=== PATIENT | female | born 1955 | race Caucasian/White ===

== ENCOUNTER → 2018-05-12 | Outpatient (CLI) | payer OTHER ==
[~2018-05-12] MED LIST: AMILORIDE HCL-1 EACH; ASPIRIN81 MG; CIPRO500 MG PO; CLINDAMYCIN HC300 MG PO; ENALAPRIL MALEA20 MG PO; GLIPIZIDE5 MG PO; Gabapentin PO; LANTUS100 UNITS/; METFORMIN HCL500 M2 PO; PROTONIX40 MG/ML PO; SIMVASTATIN20 MG PO; ULTRAM 50MG50 MG PO
== END ==
LOC: MAMMO 13:06
PROVIDERS: ATTEND Internal Medicine
DX: Z12.31 Encounter for screening mammogram for malignant neoplasm of breast (principal)
CPT/HCPCS: 77067

== ENCOUNTER 2018-10-18 13:58 | Inpatient (IN) | payer OTHER ==
[~2018-10-18] VITALS: Ht 162.6 cm; Wt 83.5 kg
[~2018-10-18 13:58] MED LIST changes: -LANTUS100 UNITS/; +LANTUS100 UNITS/ SC
--- OUTSIDE RECORDS SUMMARY | 2018-10-18 14:04 | XMS REPORT ---
Author Author [facility] Address Unknown Phone Unavailable Care Team Providers Care [place] Pilot Name Role Phone LAZ OLMSTEAD Unavailable Unavailable Problems This patient has no known problems. Allergies, Adverse Reactions, Alerts This patient has no known allergies or adverse reactions. Medications This patient has no known medications. Results Test Description Test Time Test Comments Text Results Atomic Results Result Comments MAMMOGRAPHY DIGITAL SCR BILAT 2018-05-12 14:13:00 [place] [address] Patient Name: KORINA ACEVES MR #: [id number] : 1955 Age/Sex: 62/F Req #: [id number] [facility] Physician: Ordered by: LAZ OLMSTEAD MD Report #: [id number] Location: MAMMO Room/Bed: Procedure: [id number] MG/MAMMOGRAPHY DIGITAL SCR BILAT Exam Date: 05/12/18 Exam Time: 1400 REPORT STATUS: Signed #[id number] - [id number] #BILATERAL DIGITAL SCREENING MAMMOGRAM WITH CAD: 05/12/2018 CLINICAL: Routine screening. Comparison is made to exam dated: 04/08/2012 mammogram - [facility]. Current study contains 4 films. The tissue of both breasts is predominantly fatty. Current study was also evaluated with a Computer Aided Detection (CAD) system. No significant masses, calcifications, or other findings are seen in either breast. There has been no significant interval change. IMPRESSION: BENIGN There is no mammographic evidence of malignancy. A 1 year screening mammogram is recommended. The patient will be notified by letter of the results. Emilia amos/roshni:05/16/2018 10:21:38 Director Of Perioperative Services: Kaitlin AQUINO)( [place]), [facility] letter sent: Compared to Prior B9 Mammogram BI-RADS: 2 Benign Dictated By: EMILIA KLINE DO 1021 Transcribed By: ROSHNI on 05/16/18 1021 COPY TO: LAZ OLMSTEAD MD
[2018-10-18] MEDS ORDERED: PIPER-TAZ 3.375 GM 50 ML IV NR (14:30)
--- NOTE | 2018-10-18 15:14 | Diagnostic Imaging Report ---
Exam: Left foot 3 views History: Cellulitis, foot ulcer Comparison: MRI left foot 06/12/2015. Findings: No acute, displaced fracture or dislocation. Hallux valgus deformity and multiple hammertoe deformities, which limits evaluation of the distal phalanges. Postsurgical changes of the second phalanx described on comparison MRI are poorly visualized by plain radiography. Joint spaces are relatively well-maintained. Soft tissue ulceration is evident on the lateral radiograph at the level of the midfoot. Pes planus deformity. Impression: Plantar soft tissue ulceration without underlying plain film evidence of osteomyelitis. Chronic hallux valgus deformity and multiple hammertoe deformities as above. Signed by: Dr. Abad Monk M.D. on 10/18/2018 3:11 PM
[2018-10-18 17:05] LABS: BASOPHILS # (AUTO) 0.1 (0.0-0.1); BASOPHILS % 0.4 % (0.0-1.0); EOSINOPHILS # (AUTO) 0.2 (0.0-0.4); EOSINOPHILS % 1.6 % (0.0-6.0); HEMOGLOBIN 10.7 g/dL (12.0-16.0); LYMPHOCYTES # (AUTO) 4.1 (1.0-3.2); LYMPHOCYTES % 35.5 % (18.0-39.1); MEAN CORPUSCULAR HEMOGLOBIN 27.9 pg (28-32); MEAN CORPUSCULAR HGB CONC 31.5 g/dL (31-35); MEAN CORPUSCULAR VOLUME 88.8 fL (81-99); MONOCYTES # (AUTO) 0.8 (0.2-0.8); MONOCYTES % 7.2 % (4.4-11.3); NEUTROPHILS # (AUTO) 6.3 (2.1-6.9); NEUTROPHILS % 54.9 % (38.7-80.0); PLATELET COUNT 449 x10e3/uL (140-360); RED BLOOD COUNT 3.83 x10e6/uL (3.6-5.1); RED CELL DISTRIBUTION WIDTH 14.5 % (11.7-14.4)
[2018-10-18 17:20] LABS: ALBUMIN 3.3 g/dL (3.5-5.0); ALBUMIN/GLOBULIN RATIO 0.8 (0.8-2.0); ANION GAP 17.2 mmol/L (8-16); CALCIUM 9.8 mg/dL (8.4-10.2); CREATININE, SERUM 1.38 mg/dL (0.57-1.11); MAGNESIUM 2.2 MG/DL (1.3-2.1); POTASSIUM 4.2 mmol/L (3.5-5.1)
[2018-10-18 17:48] LABS: CREATINE KINASE MB 3.2 ng/mL (0-5.0)
[2018-10-18 17:54] LABS: INR 1.05; PROTHROMBIN TIME 14.6 seconds (11.9-14.5)
--- NOTE | 2018-10-18 18:06 | NUR ---
patient placed on pacer pads.no signs of acute distress noted at this time.
--- NOTE | 2018-10-18 18:44 | Diagnostic Imaging Report ---
EXAMINATION: CHEST SINGLE (PORTABLE) INDICATION: ^bradycardia ^[id number] ^1747 COMPARISON: None FINDINGS: AP view TUBES and LINES: None. LUNGS: Lungs are well inflated. Bilateral interstitial edema. No lobar consolidations. PLEURA: No pleural effusion or pneumothorax. HEART AND MEDIASTINUM: Mild enlargement of the cardiac silhouette. Atherosclerotic calcifications of the aortic arch. BONES AND SOFT TISSUES: No acute osseous lesion. Soft tissues are unremarkable. UPPER ABDOMEN: No free air under the diaphragm. IMPRESSION: Bilateral interstitial edema. Signed by: Dr. Aiyana Doan M.D. on 10/18/2018 6:41 PM
--- NOTE | 2018-10-18 18:57 | NUR ---
SPOKE WITH DR FIELDS VIA TELEPHONE, NOTIFIED PATIENT IN 3RD DEGREE HEART BLOCK. INSTRUCTED TO ADMIT PATIENT TO ICU AND PATIENT TO HAVE PACEMAKER PLACE IN THE MORNING. VANCOMYCIN 1G IV Q12 ORDERED AT THIS TIME.
--- NOTE | 2018-10-18 18:58 | NUR ---
VERBAL REPORT GIVEN TO MARSHA CHO.
[2018-10-18] MEDS ORDERED: DEXTROSE 50% SYRINGE 50 ML IV PRN (19:30)
--- NOTE | 2018-10-18 20:00 | NUR ---
pt aware of planned pacemaker placement in am. pt and state that unsure if want pacemaker procedure performed. dr mejia informed.
[2018-10-18] MEDS: VANCOMYCIN 1GM/NS 250 ML 250 ML IV SCH (20:18)
[2018-10-18] MEDS: HYDROCODONE/APAP 7.5MG-325MG 1 EA TAB PO PRN ×2 (21:25→21:53)
--- NOTE | 2018-10-18 21:30 | NUR ---
PT UANBLE TO URINATE X 2 ATTEMPTS. INFORMED. AJ CATHETTER ORDERED. PT STATES THAT ALLERGIC TO TOPICAL IODINE. SHIVA CARE PERFORMED C HYGIENE WIPES. 16 FR AJ CATHETER INSERTED USING STERILE TECHNIQUE. 650 CC CLEAR YELLOW URINE RETURN NOTED. INFORMED.
[2018-10-18] MEDS: INSULIN REGULAR, HUMAN 100 UNIT/1 ML 3ML VIAL SQ SCH (22:15)
[2018-10-18 22:49] LABS: CLARITY,URINE CLEAR (CLEAR); COLOR,URINE YELLOW (YELLOW)
[2018-10-18 22:50] LABS: BACTERIA,URINE RARE /HPF; BILIRUBIN,URINE NEGATIVE (NEGATIVE); EPITHELIAL CELLS,URINE RARE /LPF; KETONES,URINE NEGATIVE (NEGATIVE); LEUKOCYTE ESTERASE ,URINE NEGATIVE (NEGATIVE); NITRITE,URINE NEGATIVE (NEGATIVE); PROTEIN,URINE DIPSTICK NEGATIVE (NEGATIVE); RBC,URINE 0-5 /HPF (0-5); URINE UROBILINOGEN 0.2 mg/dL (0.2 - 1)
[2018-10-19] VITALS (16 sets, daily range): BP systolic 85–136; BP diastolic 37–89
--- NOTE | 2018-10-19 03:00 | NUR ---
pt transported via stretcher to 198 c security monitor. pacer pads in place, pacer on standby as per orders.
[2018-10-19] MEDS: VANCOMYCIN 1GM/NS 250 ML 250 ML IV SCH ×2 (06:27→19:44)
[2018-10-19 07:24] LABS: BASOPHILS % 0.4 % (0.0-1.0); EOSINOPHILS # (AUTO) 0.2 (0.0-0.4); EOSINOPHILS % 1.8 % (0.0-6.0); HEMATOCRIT 32.7 % (34.2-44.1); HEMOGLOBIN 10.1 g/dL (12.0-16.0); LYMPHOCYTES # (AUTO) 3.2 (1.0-3.2); LYMPHOCYTES % 29.3 % (18.0-39.1); MEAN CORPUSCULAR HEMOGLOBIN 28.2 pg (28-32); MEAN CORPUSCULAR HGB CONC 30.9 g/dL (31-35); MEAN CORPUSCULAR VOLUME 91.3 fL (81-99); MONOCYTES # (AUTO) 1.2 (0.2-0.8); MONOCYTES % 10.8 % (4.4-11.3); NEUTROPHILS # (AUTO) 6.3 (2.1-6.9); NEUTROPHILS % 57.2 % (38.7-80.0); PLATELET COUNT 392 x10e3/uL (140-360); RED BLOOD COUNT 3.58 x10e6/uL (3.6-5.1); RED CELL DISTRIBUTION WIDTH 14.4 % (11.7-14.4)
[2018-10-19] MEDS: INSULIN REGULAR, HUMAN 100 UNIT/1 ML 3ML VIAL SQ SCH ×4 (07:30→21:04)
[2018-10-19 07:37] LABS: INR 1.05; PROTHROMBIN TIME 14.7 seconds (11.9-14.5)
[2018-10-19 07:47] LABS: ALBUMIN/GLOBULIN RATIO 0.8 (0.8-2.0); ANION GAP 15.7 mmol/L (8-16); CALCIUM 8.7 mg/dL (8.4-10.2); CREATININE, SERUM 1.29 mg/dL (0.57-1.11); POTASSIUM 4.7 mmol/L (3.5-5.1)
[2018-10-19 07:54] LABS: CREATINE KINASE MB 2.3 ng/mL (0-5.0)
[2018-10-19] MEDS ORDERED: VANCOMYCIN 1GM/NS 250 ML 250 ML IV SCH (09:00)
--- NOTE | 2018-10-19 09:28 | Consultation ---
DATE OF CONSULTATION: October 18, 2018 CARDIOLOGY CONSULTATION REASON FOR CONSULTATION: Heart block. HPI: This is a 62-year-old female that presented with lower extremity pain. According to the patient and , this has been going on for over 2 weeks. She saw her PCP, Dr. Douglas. He ordered some bilateral lower extremity arterial Doppler. She was sent to the emergency room for evaluation for infection. In the ER, she was found to have a complete heart block. Cardiology was consulted. She is very asymptomatic. The heart rate is in the 40s. She had a pad applied to her chest, and she was transferred to [facility]. EP has been consultation. She denied any chest pain, any palpitation, any diaphoresis, or headache. PAST MEDICAL HISTORY: Hypertension, diabetes, hyperlipidemia, nephropathy, mildly deaf, possible PAD, diabetic ulcer on the left foot. PAST SURGICAL HISTORY: Hernia repair, hysterectomy, left toe amputation, right wrist surgery. FAMILY HISTORY: Positive for CAD. SOCIAL HISTORY: She lives at home with her . MEDICATIONS: See med list. ALLERGIES: SHE IS ALLERGIC TO IODINE. REVIEW OF SYSTEMS: Negative except those mentioned above. She is positive for cellulitis on the left foot and complete heart block. PHYSICAL EXAMINATION VITALS: Temperature 97, heart rate 89, blood pressure 136/86, respirations 20, oxygen saturation 99% on 2 L nasal cannula. GENERAL: She is awake, alert and oriented times 3. HEENT: Mucous membrane moist. NECK: Supple. LUNGS: Bilateral with decreased breath sounds. CARDIOVASCULAR: Irregular with AV dissociation. ABDOMEN: Soft. NEUROLOGICAL: Intact. EXTREMITIES: With redness on the left. LABS: Sodium 136, potassium 4.2, chloride 99, CO2 24, BUN 25, creatinine 1.38, glucose 64. White blood cells 11, hemoglobin 10.1, hematocrit 32.7, and platelets 392,000. PT 14.6 and INR 1.05. IMPRESSION 1. Complete heart block. 2. Cellulitis and diabetic ulcer on the left foot. 3. Diabetes. 4. Hypertension. 5. Renal insufficiency. 6. Anemia. 7. Possible peripheral arterial disease. ASSESSMENT AND PLAN 1. EP, Dr. Dowd, has been consulted for possible permanent pacemaker today. 2. Will get an echocardiogram to assess the LV and the valve function. 3. Will put her n.p.o. and get a consent for pacemaker placement. Will get bilateral lower extremity venous Doppler to rule out any occlusion or DVT. 4. She is already on vancomycin antibiotics. Procedure and plan explained to the patient and the , and they agreed. Further cardiac workup pending clinical course. Thank you for this consultation. DICTATED BY ABENA FONSECA NP Job#: [id number] [place] MTDD
--- NOTE | 2018-10-19 10:31 | History and Physical ---
PRIMARY CARE PROVIDER: Dr. Adams Douglas. CONSULTANTS: Dr. Ravin Mejia, Dr. Worthington and Dr. Montrell Mason. CHIEF COMPLAINT: Left foot diabetic ulcer and sick sinus symptoms and 3rd-degree AV block. HISTORY OF PRESENT ILLNESS: Patient is a 62-year-old female with diabetes and chronic medical problems including left foot infected diabetic foot ulcer, previously with the ulcer. Came into the hospital with dizziness. The patient also has left foot cellulitis, needed to be evaluated. The patient did not see her primary care physician. In the emergency room the patient was found to have an AV dissociation with 3rd-degree AV block. Her heart rate in the 30s. The patient will need permanent pacemaker. PAST MEDICAL HISTORY: Noncompliance. Diabetes type 2 on insulin therapy. Dyslipidemia. Diabetic neuropathy. Hearing loss. PAD. Left foot diabetic foot ulcer. 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 Hypertension. PAST SURGICAL HISTORY: Left 2nd toe partial amputation. Right wrist surgery for CTS. Hernia repair. Hysterectomy. SOCIAL HISTORY: Patient does not smoke or use alcohol. No recreational drug use. She lives with her . ALLERGIES: TO IODINE AND LATEX. HOME MEDICATIONS: List is reviewed. REVIEW OF SYSTEMS: Dizziness. Weakness. Left foot infection. PHYSICAL EXAMINATION: VITAL SIGNS: Temperature is 98. Blood pressure is 120/37. Pulse rate is 30 to 40. GENERAL: The patient is not in acute distress. She is awake. HEENT: Normocephalic, atraumatic, anicteric. NECK: Supple grossly. PULMONARY: Diminished breath sounds without any wheezing or rales. CARDIOVASCULAR: S1 and S2. Bradycardia. ABDOMEN: Soft. Positive bowel sounds. Grossly nontender, nondistended. EXTREMITIES: No cyanosis or edema. Left foot with multiple ulcers. There is some redness. 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 NEUROLOGIC: Diabetic neuropathy. LABORATORY: Sodium is 134, potassium 4.7, chloride 102, bicarb 21, BUN 24, creatinine 1.29. Glucose 120. WBC is 11, hemoglobin 10.1, hematocrit 32.7 and platelet is 392. IMPRESSION: 1. Left foot diabetic foot ulcer. There is some cellulitis of the left foot. The ulcer is not draining. There is open wound, however. 2. Third-degree atrioventricular block, atrioventricular dissociation. PLAN: Permanent pacemaker. Antibiotics. Consultation with Dr. Montrell Mason. Dr. Melvin Worthington is on the case. Dr. Ravin Mejia on the case. Job#: [id number] EV
--- NOTE | 2018-10-19 13:00 | NUR ---
Dr.J. Mason rounding to see patient made him aware of wound care consult received orders not to consult wound care. Also to dress bilateral foot wounds with Santyl with wet diluted Betadine wet to dry.
--- NOTE | 2018-10-19 13:51 | Consultation ---
DATE OF CONSULTATION: October 19, 2018 REASON FOR CONSULTATION: Nonhealing ulceration to the left lower extremity with also a grade 1 ulcer to the right foot. HISTORY OF PRESENT ILLNESS: This is a pleasant 62-year-old female who is very hard of hearing with multiple chronic medical problems, who has a history of insulin-dependent diabetes, hypertension and presented through the emergency room. Was found to have an third-degree AV block with a heart rate of 30. Patient is denying any history of fever, chills, nausea, or vomiting. PAST MEDICAL HISTORY: As described above. PAST SURGICAL HISTORY: Remarkable for partial amputation, 2nd toe, left foot, cholecystectomy, hysterectomy with hernia surgery. CURRENT MEDICATIONS: Note listed in the chart including IV vancomycin. SOCIAL HISTORY: Denies any smoking, drinking or recreational drug use. Lives with and has 2 daughters. FAMILY HISTORY: Remarkable for diabetes. REVIEW OF SYSTEMS CARDIAC: Is denying any palpitations at this time. RESPIRATORY: Denies any shortness of breath. GASTROINTESTINAL: Denies any diarrhea or constipation. GENITOURINARY: Denies any hematuria or problems voiding. PODIATRIC PHYSICAL EXAMINATION EXTREMITIES: Reveals pedal pulses to be diminished to both the DP and PT. NEUROLOGICAL Seems to be decreased when utilizing [place] 5.07 monofilament wire. MUSCULOSKELETAL Reveals the muscle mass to be symmetrical and wasted. Muscle strength to be 3-4/5 to all muscle groups. Has a grade 3 ulcer on medial aspect, left foot measuring 2 to 2.5 cm in diameter, and a grade 1 ulcer on plantar aspect, 1st metatarsophalangeal joint. Some bruising noted measuring 1.5 to 2 cm in diameter. ASSESSMENT 1. Diabetic neuropathy. 2. Grade 3 ulcer with possible osteomyelitis with grade 1 ulcer, right. PLAN: Will start Santyl followed by diluted wet-to-dry Betadine to the left heel ulcer. Will start Bactroban ointment to the right heel ulcer. Continue IV antibiotics. Continue offloading. X-rays AP and bilateral will be ordered. Will continue to follow. Ulcers may need to be debrided possibly tomorrow. Job#: [id number] [place]
[2018-10-19] MEDS ORDERED: COLLAGENASE 5 GM TUBE TOP SCH (17:00)
--- NOTE | 2018-10-19 17:13 | NUR ---
High [employer] Music Teacher to bedside to discuss plan of care with patient/family. CM/SW role and care transitions discussed. Anticipated discharge plan discussed along with duration of care. CM/SW discussed patients right to make decisions in care. CM/SW work hours given. Patient lives: PATIENT LIVES WITH IN [facility] Admit/Transfer: ED POA/Emergency contact: VERO ACEVES Current/Previous Home Health: NONE PCP/Follow-up Care: DR. LAZ OLMSTEAD Current/Previous DME: NONE Other Services: NONE Employment Status: EMPLOYED Areas of Concerns: WOUND CARE Referral Needs: POSSIBLE HOME HEALTH Education Needs: WOUND CARE IMM/BEVERLY given and signed (if applicable): N/A Goal for discharge: PATIENT WANTS TO RETURN HOME WITH NO NEEDS INDEPENDENTLY CM left business card at the bedside with contact information. Name and number was also written on the patients whiteboard. Patient verbalized understanding of discussion. CM will follow-up with ongoing discharge and transition of care needs.
[2018-10-19] MEDS: INSULIN DETEMIR 100 UNIT/ML PEN SQ SCH (19:37)
--- NOTE | 2018-10-19 20:12 | NUR ---
called and left a message to dr Prasad, patient complained of pain. expecting some order. awaiting the MD to call back.
--- NOTE | 2018-10-19 20:39 | NUR ---
paged dr Mason, patient doesnt tolerate the dressings to the feet. expecting some orders, awaiting the MD call back.
--- NOTE | 2018-10-19 20:54 | NUR ---
dr Kareen Abraham called back ( covering dr Mason). gave Tylenol PRN order. orders carried out.
[2018-10-19] MEDS: SIMVASTATIN 20 MG TAB PO SCH (21:04)
[2018-10-19] MEDS: ACETAMINOPHEN 325 MG TAB PO PRN (21:04)
--- NOTE | 2018-10-19 21:23 | NUR ---
dr Prasad called back, he clarified the [place] order to q 6 PRN for pain. order carried out.
--- NOTE | 2018-10-19 22:00 | Diagnostic Imaging Report ---
FOOT RIGHT COMPLETE HISTORY: Plantar wound. COMPARISON: None available. FINDINGS: Bones: No acute displaced fracture. No erosions. Hallux valgus deformity with approximately 37 degrees of angulation. Hammertoe deformities. Partially visualized distal fibular plate and screw construct. Joints: Scattered mild to moderate degenerative changes. Soft tissues: Soft tissue swelling of the medial plantar forefoot. IMPRESSION: No radiographic evidence of osteomyelitis. Recommend repeat radiographs in 6-8 weeks in the setting of continued poor wound healing. Signed by: DR. Carson Merino MD on 10/19/2018 9:57 PM
--- NOTE | 2018-10-19 22:03 | NUR ---
called and spoke with dr Mejia, clarified if patient can have Bumpass PRN while her heart rate is low 40s. per MD its ok to give one Bumpass. will continue monitor.
[2018-10-19] MEDS: HYDROCODONE/APAP 7.5MG-325MG 1 EA TAB PO PRN (22:09)
[2018-10-20 03:46] VITALS: BP 134/53
--- NOTE | 2018-10-20 05:17 | NUR ---
patient is awaken, heart rate is still on low 40s, but no s/s of distress. sponge bath given ( with hibiclenz), patient tolerated well, linen change, dressing to both feet changed. defibrillator continuing attached.will continue to monitor.
[2018-10-20 05:30] LABS: BASOPHILS # (AUTO) 0.1 (0.0-0.1); BASOPHILS % 0.6 % (0.0-1.0); EOSINOPHILS # (AUTO) 0.4 (0.0-0.4); EOSINOPHILS % 4.5 % (0.0-6.0); LYMPHOCYTES # (AUTO) 3.3 (1.0-3.2); LYMPHOCYTES % 37.1 % (18.0-39.1); MEAN CORPUSCULAR HEMOGLOBIN 27.7 pg (28-32); MEAN CORPUSCULAR HGB CONC 30.6 g/dL (31-35); MEAN CORPUSCULAR VOLUME 90.4 fL (81-99); MONOCYTES # (AUTO) 0.9 (0.2-0.8); MONOCYTES % 9.7 % (4.4-11.3); NEUTROPHILS # (AUTO) 4.2 (2.1-6.9); NEUTROPHILS % 47.8 % (38.7-80.0); PLATELET COUNT 371 x10e3/uL (140-360); RED BLOOD COUNT 3.43 x10e6/uL (3.6-5.1); RED CELL DISTRIBUTION WIDTH 14.6 % (11.7-14.4)
[2018-10-20 05:45] LABS: ANION GAP 14.4 mmol/L (8-16); CALCIUM 8.4 mg/dL (8.4-10.2); CREATININE, SERUM 1.13 mg/dL (0.57-1.11); POTASSIUM 4.4 mmol/L (3.5-5.1)
[2018-10-20 05:55] LABS: HEMOGLOBIN 9.5 g/dL (12.0-16.0)
[2018-10-20 06:05] LABS: MAGNESIUM 2.2 MG/DL (1.3-2.1); PHOSPHORUS 3.5 MG/DL (2.3-4.7)
--- NOTE | 2018-10-20 06:10 | NUR ---
called answering service dr Dowd, to report Vanco Through result, awaiting for the MD to call back.
[2018-10-20 06:22] LABS: THYROID STIMULATING HORMONE 1.608 uIU/mL (0.350-4.940)
--- NOTE | 2018-10-20 06:43 | NUR ---
called and spoke with dr Prasad, reported that patient Vanco Trough this morning is 19.5; the MD ordered to hold the dose and random Vanco check tomorrow.
[2018-10-20 07:05] VITALS: BP 111/42
[2018-10-20] MEDS: INSULIN REGULAR, HUMAN 100 UNIT/1 ML 3ML VIAL SQ SCH ×4 (07:30→21:00)
[2018-10-20 07:45] VITALS: BP 117/55
--- NOTE | 2018-10-20 08:23 | NUR ---
RECEIVED WOUND CARE CONSULT FOR PT YESTERDAY AFTERNOON, SPOKE WITH PRIMARY NURSE MARCIO DYE, STATES THAT SHE SPOKE WITH DR. ANSARI IN REGARDS WOUND CARE CONSULT AND SHE RECEIVED ORDERS TO CANCEL WOUND CARE CONSULT. ORDERS IN CHART FOR SANTYL FOLLOWED BY DILUTED WET TO DRY BETADINE TO LEFT HEEL ULCER AND BACTROBAN OINTMENT TO RIGHT HEEL. PER DR. HAWK ULCER MAY NEED TO BE DEBRIDED. TODAY. WOUND CARE CONSULT CANCELLED THIS MORNING. NURSING/ TO RECONSULT WOUND CARE PRN. Addendum: 10/20/18 at 0828 by Nataliia Villareal RN Amended: Links added.
[2018-10-20] MEDS ORDERED: ENALAPRIL MALEATE 10 MG PO SCH (09:00)
[2018-10-20] MEDS: ENALAPRIL MALEATE 10 MG TAB PO SCH (09:00)
[2018-10-20] MEDS: INSULIN DETEMIR 100 UNIT/ML PEN SQ SCH ×2 (09:00→17:00)
[2018-10-20] MEDS: COLLAGENASE OINTMENT 30 GM TUBE TP SCH (09:02)
--- NOTE | 2018-10-20 09:02 | NUR ---
HELD LEVEMIR INSULIN SQ PATIENT IS NPO FOR SURGERY.
--- NOTE | 2018-10-20 09:31 | Progress Note ---
DATE: October 20, 2018 SUBJECTIVE: Patient seen at bedside, accompanied by spouse, doing well, no apparent distress, sleeping. OBJECTIVE: VITAL SIGNS: Afebrile. Has an irregular pulse rate low at 39, respiration rate is 16, blood pressure 134/53. Pulse oximeter is 98% on the nasal cannula at 3 liters per minute. EXTREMITIES: Ulcerations to the left lower extremity are looking better. Has a grade 3 ulcer, left; grade 1 ulcer, right foot with hyperkeratotic tissue sub-first metatarsal head. LABS: Noted. White blood cell count dropping to 8.7, hemoglobin 9.5, hematocrit 31.0, platelet count is 371,000. X-rays of the left foot were negative for any type of osteomyelitic changes, no gas in the tissue. Pedal pulses are diminished to both the DP and PT with positive cellulitis noted. ASSESSMENT: 1. Grade 3 ulcer, left; grade 1 ulcer, right. 2. Peripheral neuropathy with diabetes. PLAN: Will continue IV antibiotics such as vanco. Continue local wound care. Continue offloading. Ulcerations will be debrided within the next couple of days. Awaiting x-rays of the right lower extremity. Left x-rays were taken. Job#: [id number]
--- NOTE | 2018-10-20 10:08 | Diagnostic Imaging Report ---
PROCEDURE:X-RAY LEFT FOOT, COMPLETE COMPARISON:None. INDICATIONS:ULCER TO LEFT HEEL FINDINGS: No acute, displaced fracture or dislocation. Appropriate alignment between the medial cuneiform and second metatarsal base. Post surgical changes related to partial second ray amputation at the level of the middle phalangeal base. Hallux valgus deformity. Pes planus deformity with degenerative plantar calcaneal spur. No gross soft tissue defect or cortical erosive changes. CONCLUSION: No large soft tissue defect or underlying cortical erosive change to correspond to the reported left heel ulcer. No acute osseous abnormality. Dictated by: Abad Monk M.D. on 10/20/2018 at 10:18 Electronically approved by: Abad Monk M.D. on 10/20/2018 at 10:18
[2018-10-20 11:45] VITALS: BP 130/45
[2018-10-20] MEDS ORDERED: MIDAZOLAM HCL 2 MG/2 ML VIAL ONE ×2 (11:47→18:43)
[2018-10-20] MEDS ORDERED: FENTANYL CITRATE/PF 100MCG/2 ML INJ ONE (11:47)
[2018-10-20] MEDS ORDERED: BACITRACIN 50,000 UNIT VIAL ONE (11:47)
[2018-10-20] MEDS ORDERED: LIDOCAINE HCL 2% LOCAL 20 ML VIAL ONE (11:48)
[2018-10-20] MEDS ORDERED: SODIUM CHLORIDE 0.9% 1000ML 2,000 ML ONE (11:48)
[2018-10-20] MEDS ORDERED: SODIUM CHLORIDE 0.9% 500ML 500 ML ONE (11:48)
[2018-10-20 11:51] VITALS: BP 117/55
[2018-10-20] MEDS ORDERED: MORPHINE SULFATE 2 MG/ML SYR IV STA (16:58)
[2018-10-20] MEDS ORDERED: MORPHINE SULFATE INJ 4 MG/ML INJ IV ONE (17:15)
[2018-10-20] MEDS ORDERED: VANCOMYCIN 1GM/NS 250 ML 250 ML ONE (17:53)
[2018-10-20] MEDS ORDERED: METHYLPREDNISOLONE SOD SUCC 125 MG/2ML VIAL ONE (18:05)
[2018-10-20] MEDS ORDERED: DIPHENHYDRAMINE HCL INJ 50 MG/ML VIAL ONE (18:06)
--- NOTE | 2018-10-20 19:15 | NUR ---
HANDOFF REPORT TO NURSE MARCIO PORTILLO MADE AWARE I DID NOT GIVE 1700 LEVEMIR INSULIN TO PATIENT DO TO NPO STATUS AND OFF UNIT FOR PACEMAKER PLACEMENT. NURSE VERBALIZED UNDERSTANDING TO GIVE AFTER PROCEDURE.
--- NOTE | 2018-10-20 19:46 | NUR ---
Received report from AM nurse. Walking rounds completed.
--- NOTE | 2018-10-20 19:55 | Operative Report ---
DATE OF PROCEDURE: October 20, 2018 PREPROCEDURAL DIAGNOSES 1. Third-degree AV block. 2. Symptomatic bradycardia. POSTPROCEDURAL DIAGNOSES 1. Third-degree AV block. 2. Symptomatic bradycardia. PROCEDURES PERFORMED: 1. [employer] dual-chamber pacemaker insertion in the left pectoral region. 2. Moderate sedation. PROCEDURE IN DETAIL: Ms. Mckeon was brought to the incinerator plant laborer here at [facility] in the fasting and nonsedated state. The left pectoral region was prepped and draped in a sterile manner. The pocket was formed in the left pectoral region with a combination of electrocautery, blunt, and sharp dissection. Access to the axillary vein was made through the pocket, and 2 guidewires were placed in this vein with the tips in the IVC. A 6-Faroese sheath was placed over the first guidewire through which an [employer] MRI pacing lead, model #7741, serial #[id number] was implanted in the right ventricular apex without complications. Adequate pacing and sensing parameters were observed and the sheath was peeled away and the lead secured to the underlying fascia with 0 silk. A 7-Faroese sheath was then placed over the remaining guidewire through which an [employer] MRI pacing lead, model #7741, serial #[id number] was implanted in the right atrial appendage without complications. Adequate pacing and sensing parameters were observed and the sheath was peeled away and the lead secured to the underlying fascia with 0 silk. Pocket was irrigated with antibiotic-containing normal saline with a pulse irrigation and pulse lavage tool. The leads were then connected to a [employer] pacemaker generator, model #L311, serial #[id number]. The generator and leads were then placed in the pocket and secured to the underlying fascia with 0 silk. The pocket was closed in 3 layers with 2-0 Vicryl for the deep and subcutaneous layers and 4-0 Vicryl for the skin. Dermabond was placed for additional skin approximation. DEVICE DATA: Right ventricular lead has R waves of 7.3 mV, a threshold of 0.8 V and a pulse width of 0.5 msec and a pacing impedance of 763 ohms. The right atrial lead has P waves of 4.4 MV, a threshold of 1.2 V and a pulse width of 0.5 msec and pacing impedance of 590 ohms. Of note, moderate sedation was administered for the procedure. Start time was 6:30 p.m. and end time was 7:01 p.m. A total of 3 mg of Versed and 75 mcg of fentanyl were administered. Pulse oximetry and hemodynamic monitoring were performed throughout the procedure. The patient tolerated the procedure well. CONCLUSION: 1. Successful implantation of a [employer] dual-chamber pacemaker in the left pectoral region. 2. Moderate sedation of 30 minutes was administered for the procedure. 3. No complications. Job#: [id number]
[2018-10-20 20:00] VITALS: BP 124/63
--- NOTE | 2018-10-20 20:00 | NUR ---
Patient arrived from surgery. Report given by nurse. Dressing to pacemaker site dry and intact. Patient instructed not to left left arm. Patient very forgetful. Patient extremely hard of hearing. Phelps to bedside with michael colored urine noted. IV to left AC 18G dry and intact. BS at 158 insulin gibven as ordered by . Patient AAOx3 with periods of confusion. Continue monitor.
[2018-10-20] MEDS: SIMVASTATIN 20 MG TAB PO SCH (21:00)
[2018-10-21] VITALS (9 sets, daily range): BP systolic 93–136; BP diastolic 49–81
[2018-10-21] MEDS: HYDROCODONE/APAP 7.5MG-325MG 1 EA TAB PO PRN ×3 (00:17→18:30)
--- NOTE | 2018-10-21 06:00 | NUR ---
Patient continue to get up out of bed with asst. Informed patient to call. Call ware in reach. Patient on bedside commode having BM. c/o eyes itching and constipation.
[2018-10-21] MEDS: INSULIN REGULAR, HUMAN 100 UNIT/1 ML 3ML VIAL SQ SCH ×5 (07:30→20:47)
[2018-10-21] MEDS ORDERED: DIPHENHYDRAMINE HCL 25 MG CAP PO PRN (07:30)
--- NOTE | 2018-10-21 07:30 | NUR ---
Pt received standing at bedside, awake. AAOx2-3, somewhat forgetful, resp even and unlabored, lung sounds clear. IV patent, flushed with 10cc NS. Some c/o pain noted, medicated per MAR. No other s/s distress noted. Arm noted in sling, instructed patient on proper placement, patient verbalizes understanding. Pt moans aloud, asking for . called, states, "I will be up later." Patient informed, no other questions noted at this time. Bed in lowest position, bed alarm intact.
--- NOTE | 2018-10-21 08:00 | NUR ---
[employer] here to interrogate pacemaker, patient tolerated well.
--- NOTE | 2018-10-21 08:38 | Progress Note ---
DATE: October 21, 2018 SUBJECTIVE: Patient is at bedside. Doing well. Had a pacemaker placement yesterday. Denies any history of fever, chills, nausea, or vomiting. OBJECTIVE VITAL SIGNS: Afebrile, pulse rate 52, respirations 18, blood pressure 124/63, O2 saturation 95%. EXTREMITIES: Ulcerations to both lower extremities healing. Granular fibrotic base noted. No bone exposed. Periwound cellulitis present. LABS: Show a white blood cell count of 8.7. ASSESSMENT 1. Grade 3 ulcer, left. 2. Grade 1 ulcer, right. PLAN: Continue Santyl followed by diluted wet-to-dry Betadine. Continue Bactroban ointment. Continue offloading. Ulcerations will be debrided sometime in the next couple days. Will continue conservative care for now and offloading. Job#: [id number] TAI
[2018-10-21] MEDS: ENALAPRIL MALEATE 10 MG TAB PO SCH ×2 (08:58→09:28)
[2018-10-21] MEDS: COLLAGENASE OINTMENT 30 GM TUBE TP SCH ×2 (08:58→13:13)
[2018-10-21] MEDS: INSULIN DETEMIR 100 UNIT/ML PEN SQ SCH ×3 (08:58→17:00)
[2018-10-21] MEDS ORDERED: ALBUTEROL/IPRATROPIUM 3 ML NEB NEB PRN (13:00)
[2018-10-21] MEDS ORDERED: OLOPATADINE 5 ML BTL OP PRN ×2 (13:00→16:15)
[2018-10-21] MEDS ORDERED: BENZONATATE 100 MG CAP PO PRN (13:00)
[2018-10-21] MEDS: LORATADINE 10 MG TAB PO SCH (13:16)
[2018-10-21] MEDS: ACETAMINOPHEN 325 MG TAB PO PRN ×2 (15:06→20:30)
--- NOTE | 2018-10-21 17:15 | NUR ---
PATIENT WITH PACEMAKER PLACEMENT PROCEDURE COMPLETED AND PENDING I & D AFTER DISCUSSED WITH . PENDING PROCEDURE TO DETERMINE PLAN OF CARE.
[2018-10-21] MEDS ORDERED: SODIUM CHLORIDE 0.9% 250ML 250 ML ONE (17:16)
[2018-10-21] MEDS: PIPER-TAZ 3.375 GM 50 ML IV SCH ×2 (17:23→23:32)
--- NOTE | 2018-10-21 18:58 | NUR ---
Report given to oncoming nurse, no questions noted at this time.
--- NOTE | 2018-10-21 19:00 | NUR ---
Report received from AM nurse Shalonda. Patient sitting edge of the bedside. Denied pain and no SOB. NO respiratory distress noted. Respiration even and unlabored, Spo2 maintained 96% with 2liters oxygen via nasal canula. Patient instructed to help for as needed. Bed in lower position,locked. Call ware within reach. Will continue to monitor.
[2018-10-21] MEDS: SIMVASTATIN 20 MG TAB PO SCH (20:46)
[2018-10-22] VITALS (8 sets, daily range): BP systolic 123–140; BP diastolic 70–83
[2018-10-22] MEDS: HYDROCODONE/APAP 7.5MG-325MG 1 EA TAB PO PRN ×2 (02:19→22:52)
[2018-10-22 04:45] LABS: BASOPHILS % 0.3 % (0.0-1.0); EOSINOPHILS # (AUTO) 0.4 (0.0-0.4); EOSINOPHILS % 4.7 % (0.0-6.0); HEMATOCRIT 30.3 % (34.2-44.1); HEMOGLOBIN 9.4 g/dL (12.0-16.0); LYMPHOCYTES # (AUTO) 2.9 (1.0-3.2); LYMPHOCYTES % 32.2 % (18.0-39.1); MEAN CORPUSCULAR HEMOGLOBIN 28.1 pg (28-32); MEAN CORPUSCULAR VOLUME 90.7 fL (81-99); MONOCYTES # (AUTO) 0.7 (0.2-0.8); MONOCYTES % 8.2 % (4.4-11.3); NEUTROPHILS # (AUTO) 4.8 (2.1-6.9); NEUTROPHILS % 54.3 % (38.7-80.0); PLATELET COUNT 358 x10e3/uL (140-360); RED BLOOD COUNT 3.34 x10e6/uL (3.6-5.1); RED CELL DISTRIBUTION WIDTH 14.5 % (11.7-14.4)
[2018-10-22 05:00] LABS: ANION GAP 13.5 mmol/L (8-16); BLOOD UREA NITROGEN 15 mg/dL (7-26); BUN/CREATININE RATIO 17 (6-25); CALCIUM 8.7 mg/dL (8.4-10.2); CARBON DIOXIDE 23 mmol/L (22-29); CHLORIDE 106 mmol/L (98-107); CREATININE, SERUM 0.86 mg/dL (0.57-1.11); EST GLOMERULAR FILTRATION RATE > 60 ML/MIN (60-); GLUCOSE 103 mg/dL (74-118); POTASSIUM 4.5 mmol/L (3.5-5.1); SODIUM 138 mmol/L (136-145)
--- NOTE | 2018-10-22 05:00 | NUR ---
Patient assisted to changed dressing on bilateral lower legs,patient tolerated well. Will continue to monitor.
[2018-10-22] MEDS: PIPER-TAZ 3.375 GM 50 ML IV SCH ×3 (05:33→17:45)
--- NOTE | 2018-10-22 07:09 | NUR ---
Report given to upcoming nurse Sheila.
[2018-10-22] MEDS: INSULIN REGULAR, HUMAN 100 UNIT/1 ML 3ML VIAL SQ SCH ×4 (07:30→21:00)
[2018-10-22] MEDS: LORATADINE 10 MG TAB PO SCH (08:34)
[2018-10-22] MEDS: ENALAPRIL MALEATE 10 MG TAB PO SCH (08:35)
[2018-10-22] MEDS: COLLAGENASE OINTMENT 30 GM TUBE TP SCH (08:35)
[2018-10-22] MEDS: INSULIN DETEMIR 100 UNIT/ML PEN SQ SCH ×2 (08:37→16:47)
--- NOTE | 2018-10-22 15:07 | Progress Note ---
DATE: October 22, 2018 SUBJECTIVE: Patient seen at bedside. Doing better. Denies any history of shortness of breath or chest pain. OBJECTIVE VITAL SIGNS: Afebrile, pulse rate 90, respirations 18, blood pressure 123/70, O2 saturation 100%. EXTREMITIES: Ulcerations to both lower extremities improving slowly. Has a grade 3 ulcer on the medial aspect of left foot overlying the metatarsal joint and a grade 1/2 ulceration plantar aspect right great toe measuring 1.5 to 2 cm in diameter. Pedal pulses are palpable. Skin temperature warm to touch. LABS: Noted. Has a white blood cell count of 8.8, hemoglobin 9.4, hematocrit 30.3 with a platelet count of 358. ASSESSMENT: Diabetic neuropathy with a grade 3 ulcer left, grade 2 ulcer right. PLAN: Sharp excisional debridement of the ulcers were carried down to muscle and subcutaneous tissue to the left and right foot respectively. Devitalized tissue was sharply excised until good viable bleeding tissue was achieved. Sterile dressing was applied. We will continue Santyl followed by diluted wet-to-dry to the left foot, Bactroban ointment followed by diluted wet-to-dry to the right. Continue offloading. Continue IV antibiotics such as Zosyn. We will continue to follow. Job#: [id number] SANTANA
--- NOTE | 2018-10-22 19:40 | NUR ---
WOUND CARE DRESSING CHANGE WITH SANTYL AND BETADINE SOLUTION PROVIDED TO BOTH FEET, PATIENT TOLERATED PROCEDURE WELL. BED ALARM ON, CALL LIGHT IN EASY REACH.
--- NOTE | 2018-10-22 21:04 | NUR ---
BED ALARM WENT OFF, UPON ASSESSMENT, THE PATIENT WAS OBSERVED SITTING BETWEEN THE SIDE RAILS. SHE WAS ASSISTED TO THE WHEEL CHAIR AND BROUGHT TO THE NURSES STATION FOR CLOSE OBSERVATION TO PREVENT FALL.
[2018-10-22] MEDS: SIMVASTATIN 20 MG TAB PO SCH (21:15)
--- NOTE | 2018-10-22 22:50 | NUR ---
PATIENT C/O PAIN TO THE LEGS, MEDICATED WITH NORCO 1TAB ORDERED.
--- NOTE | 2018-10-22 23:39 | NUR ---
PATIENT ASSISTED TO BED, SHE VOICED RELIEF OF LEGS PAIN. BED ALARM ON, CALL LIGHT WITHIN EASY REACH. SNACK GIVEN TO THE PATIENT.
[2018-10-23] MEDS: PIPER-TAZ 3.375 GM 50 ML IV SCH ×4 (00:07→17:48)
--- NOTE | 2018-10-23 03:25 | NUR ---
PATIENT IS SOUNDLY ASLEEP, SHE'S EASY TO AROUSE. NO RESPIRATORY DISTRESS OBSERVED, DRESSINGS REMAINS DRY AND INTACT TO THE FEET. BED ALARM ON, CALL LIGHT WITHIN EASY REACH.
[2018-10-23 04:18] VITALS: BP 132/88
[2018-10-23 07:30] VITALS: BP 132/88
[2018-10-23] MEDS: INSULIN REGULAR, HUMAN 100 UNIT/1 ML 3ML VIAL SQ SCH ×4 (07:30→21:43)
[2018-10-23 07:58] VITALS: BP 124/67
[2018-10-23] MEDS: LORATADINE 10 MG TAB PO SCH (08:09)
[2018-10-23] MEDS: ENALAPRIL MALEATE 10 MG TAB PO SCH (08:09)
[2018-10-23] MEDS: COLLAGENASE OINTMENT 30 GM TUBE TP SCH (08:09)
[2018-10-23] MEDS: INSULIN DETEMIR 100 UNIT/ML PEN SQ SCH ×2 (08:12→16:29)
[2018-10-23 12:12] VITALS: BP 128/50
[2018-10-23 15:46] VITALS: BP 124/53
--- NOTE | 2018-10-23 17:13 | Progress Note ---
DATE: October 23, 2018 SUBJECTIVE: Patient seen at bedside. Doing better. Denies any history of fever, chills, nausea, or vomiting. OBJECTIVE VITAL SIGNS: Afebrile, pulse rate 82, respirations 18, blood pressure 124/53, O2 saturation 94%. EXTREMITIES: Ulcerations to both lower extremities healing. No bone or tendon exposed. Granular fibrotic tissue noted to both lower extremities. Pedal pulses are palpably diminished. Positive edema with Charcot foot deformity noted, left worse than right. Ulcer is approximately 2 to 2.5 cm in diameter left, 1.2 and 2 cm in diameter plantar aspect 1st metatarsophalangeal joint, right foot. LABS: Noted, has a white blood cell count of 8.8. ASSESSMENT: Diabetic neuropathy with a grade 3 ulcer on the left, grade 2 ulcer on the right. PLAN: Continue local wound care with Santyl followed by diluted wet-to-dry Betadine. Continue IV antibiotics such as Zosyn IV piggyback. Will continue to follow. Job#: [id number] IDRIS
[2018-10-23 20:00] VITALS: BP 127/61
--- NOTE | 2018-10-23 20:00 | NUR ---
PATIENT RESTING QUIETLY IN BED, NO RESPIRATORY DISTRESS OBSERVED. DRESSINGS DRY AND INTACT TO THE FEET, SHE DENIES PAIN. BED ALARM ON, CALL LIGHT WITHIN EASY REACH.
[2018-10-23] MEDS: SIMVASTATIN 20 MG TAB PO SCH (21:39)
--- NOTE | 2018-10-23 21:40 | NUR ---
PATIENT ASSISTED TO THE TOILET, SHE'S BROUGHT TO THE NURSES STATION IN THE WHEELCHAIR FOR CLOSE OBSERVATION. NO DISTRESS NOTED, SHE DENIES PAIN.
[2018-10-23] MEDS: HYDROCODONE/APAP 7.5MG-325MG 1 EA TAB PO PRN (23:05)
--- NOTE | 2018-10-23 23:05 | NUR ---
PATIENT C/O PAIN TO THE LEG WITH PAIN SCORE #6, MEDICATED WITH NORCO 1TAB ORDERED. PATIENT REMAINS SITTING IN THE WHEELCHAIR AT THE NURSES STATION FOR CLOSE OBSERVATION.
--- NOTE | 2018-10-23 23:34 | NUR ---
PATIENT ASSISTED TO THE BED; CALL LIGHT IN EASY REACH, BED ALARM ON AND PATIENT VOICED RELIEF OF PAIN TO THE LEGS.
[2018-10-24] VITALS (7 sets, daily range): BP systolic 122–136; BP diastolic 53–80
[2018-10-24] MEDS: PIPER-TAZ 3.375 GM 50 ML IV SCH ×4 (00:14→18:14)
--- NOTE | 2018-10-24 02:05 | NUR ---
PATIENT IS SOUNDLY ASLEEP, NO RESPIRATORY DISTRESS OBSERVED. BED ALARM ON, CALL LIGHT IN EASY REACH.
[2018-10-24 04:59] LABS: BASOPHILS % 0.3 % (0.0-1.0); EOSINOPHILS # (AUTO) 0.4 (0.0-0.4); EOSINOPHILS % 5.5 % (0.0-6.0); HEMATOCRIT 29.4 % (34.2-44.1); HEMOGLOBIN 9.2 g/dL (12.0-16.0); LYMPHOCYTES # (AUTO) 2.6 (1.0-3.2); LYMPHOCYTES % 34.1 % (18.0-39.1); MEAN CORPUSCULAR HEMOGLOBIN 27.4 pg (28-32); MEAN CORPUSCULAR HGB CONC 31.3 g/dL (31-35); MEAN CORPUSCULAR VOLUME 87.5 fL (81-99); MONOCYTES # (AUTO) 0.7 (0.2-0.8); NEUTROPHILS # (AUTO) 3.8 (2.1-6.9); NEUTROPHILS % 50.6 % (38.7-80.0); PLATELET COUNT 320 x10e3/uL (140-360); RED BLOOD COUNT 3.36 x10e6/uL (3.6-5.1); RED CELL DISTRIBUTION WIDTH 14.2 % (11.7-14.4)
[2018-10-24 05:14] LABS: ANION GAP 11.9 mmol/L (8-16); BLOOD UREA NITROGEN 8 mg/dL (7-26); BUN/CREATININE RATIO 10 (6-25); CALCIUM 8.3 mg/dL (8.4-10.2); CARBON DIOXIDE 23 mmol/L (22-29); CHLORIDE 109 mmol/L (98-107); CREATININE, SERUM 0.77 mg/dL (0.57-1.11); EST GLOMERULAR FILTRATION RATE > 60 ML/MIN (60-); GLUCOSE 108 mg/dL (74-118); POTASSIUM 3.9 mmol/L (3.5-5.1); SODIUM 140 mmol/L (136-145)
[2018-10-24] MEDS: INSULIN REGULAR, HUMAN 100 UNIT/1 ML 3ML VIAL SQ SCH ×4 (07:30→20:24)
[2018-10-24] MEDS: ENALAPRIL MALEATE 10 MG TAB PO SCH (08:41)
[2018-10-24] MEDS: COLLAGENASE OINTMENT 30 GM TUBE TP SCH (08:41)
[2018-10-24] MEDS: LORATADINE 10 MG TAB PO SCH (08:41)
[2018-10-24] MEDS: INSULIN DETEMIR 100 UNIT/ML PEN SQ SCH ×2 (09:00→17:30)
--- NOTE | 2018-10-24 09:28 | Progress Note ---
DATE: October 24, 2018 SUBJECTIVE: Patient seen at bedside. Doing better. In no apparent distress. Denies any history of fever, chills, nausea, or vomiting. OBJECTIVE VITALS: Afebrile, pulse rate 75, respirations 18, blood pressure 136/70, O2 saturation 98%. EXTREMITIES: Ulcerations to both lower extremities continue to improve. Granular fibrotic base. No bone or tendon exposed. Decreased periwound cellulitis present to both ulcerations. LABS: Show a white blood cell count of 7.5, hemoglobin 9.2 and platelet counts of 320,000. ASSESSMENT 1. Grade 3 ulcer, left. 2. Grade 2 ulcer, right. PLAN: Continue local wound care. Continue Santyl followed by dilute wet-to-dry. Continue IV antibiotics. Continue off loading. Will continue to follow. Job#: [id number] TAI
--- NOTE | 2018-10-24 12:30 | NUR ---
LINEN CHANGED. PT AMBULATING TO RESTROOM WITH ASSIST.
--- NOTE | 2018-10-24 14:46 | NUR ---
Nutrition Screen Note RD Recommendation for Physician: -Continue ADA diet as ordered Plan of Care: RD following, monitoring for tolerance and adequacy Nutrition reason for involvement: LOS Primary Diagnose(s): Diabetic neuropathy with a grade 3 ulcer on the left, grade 2 ulcer on the right. 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 Labs and meds reviewed. 62 yo F, who is admitted for diabetic neuropathy with a grade 3 ulcer on the left, grade 2 ulcer on the right.. Visited pt in the room during lunch and pt ate 100% of her meal. Pt reports great appetite. 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 No recent weight loss reported. No GI complains noted. LBM 10/24, normal per pt. Pt denies any chewing or swallowing difficulty. Will continue to monitor and follow. Current Diet: ADA diet Malnutrition Evaluation (10/24/18) The patient does not meet criteria for a specified degree of malnutrition at this time. Will re-evaluate at follow-up as appropriate. Diet Education Needs Assessment: Diet education not indicated. Nutrition Care Level: low Signed: Rhina Mcknight, MS, RD, LD
--- NOTE | 2018-10-24 16:00 | NUR ---
WOUND CARE DONE TO BILATERAL FEET
[2018-10-24] MEDS: SIMVASTATIN 20 MG TAB PO SCH (20:25)
[2018-10-24] MEDS: HYDROCODONE/APAP 7.5MG-325MG 1 EA TAB PO PRN (21:01)
[2018-10-25] MEDS: PIPER-TAZ 3.375 GM 50 ML IV SCH ×4 (00:15→17:08)
[2018-10-25 00:16] VITALS: BP 141/75
[2018-10-25 04:37] VITALS: BP 146/70
[2018-10-25] MEDS: HYDROCODONE/APAP 7.5MG-325MG 1 EA TAB PO PRN (04:41)
[2018-10-25] MEDS: INSULIN REGULAR, HUMAN 100 UNIT/1 ML 3ML VIAL SQ SCH ×4 (07:18→21:24)
[2018-10-25 08:00] VITALS: BP_SYST 123; BP_SYST 146; BP_DIAS 70; BP_DIAS 93
[2018-10-25] MEDS: ENALAPRIL MALEATE 10 MG TAB PO SCH (08:33)
[2018-10-25] MEDS: COLLAGENASE OINTMENT 30 GM TUBE TP SCH (08:33)
[2018-10-25] MEDS: LORATADINE 10 MG TAB PO SCH (08:33)
[2018-10-25] MEDS: INSULIN DETEMIR 100 UNIT/ML PEN SQ SCH ×2 (09:12→17:07)
--- NOTE | 2018-10-25 09:22 | Progress Note ---
DATE: October 25, 2018 SUBJECTIVE: Patient seen at bedside, doing better, breathing better. Denies any history of fever, chills, nausea, vomiting. OBJECTIVE: VITAL SIGNS: Afebrile. Pulse rate 72, respiration 18, blood pressure 123/93, O2 saturation 98%. EXTREMITIES: Pedal pulses to both lower extremities are palpable, but diminished. CFT to all toes is less than 4 seconds. Skin temperature warm to touch. Ulcerations to both lower extremities continued to improve. Granular fibrotic base. No bone or tendon exposed down to muscle, left foot and down to subcutaneous tissue and dermis, right foot. LABS: Noted. White blood cell count of 7.57. ASSESSMENT: Multiple grade 3 and grade 2 ulcerations to both lower extremities, left and right foot respectively with diabetic neuropathy and cellulitis. PLAN: Will continue IV antibiotics such as Zosyn. Continue local wound care with Santyl, followed by dilute wet-to-dry Betadine and Bactroban ointment to the right foot. Continue offloading. Will continue to follow. Job#: [id number]
[2018-10-25 12:00] VITALS: BP 114/64
[2018-10-25] MEDS ORDERED: COLLAGENASE 5 GM TUBE TP SCH (14:00)
[2018-10-25 16:00] VITALS: BP 145/73
--- NOTE | 2018-10-25 18:35 | NUR ---
RECD PT FROM ROOM 198 VIA W/C AAOX3,DENIES PAIN ,SL TO RT AC PATENT.
[2018-10-25 20:00] VITALS: BP 156/67
[2018-10-25] MEDS: SIMVASTATIN 20 MG TAB PO SCH (21:24)
[2018-10-26] VITALS (8 sets, daily range): BP systolic 110–164; BP diastolic 51–74
[2018-10-26] MEDS: ACETAMINOPHEN 325 MG TAB PO PRN (00:12)
[2018-10-26] MEDS: PIPER-TAZ 3.375 GM 50 ML IV SCH ×4 (00:12→17:35)
[2018-10-26] MEDS: INSULIN REGULAR, HUMAN 100 UNIT/1 ML 3ML VIAL SQ SCH ×4 (07:30→21:00)
--- NOTE | 2018-10-26 07:30 | NUR ---
RECEIVED PATIENT RESTING IN BED. NO ACUTE DISTRESS NOTED. CALL LIGHT WITHIN REACH. BED IN THE LOWEST POSITION.
[2018-10-26] MEDS: COLLAGENASE OINTMENT 30 GM TUBE TP SCH (08:46)
[2018-10-26] MEDS: LORATADINE 10 MG TAB PO SCH (08:47)
[2018-10-26] MEDS: ENALAPRIL MALEATE 10 MG TAB PO SCH (08:47)
[2018-10-26] MEDS: HYDROCODONE/APAP 7.5MG-325MG 1 EA TAB PO PRN ×2 (08:48→21:47)
[2018-10-26] MEDS: INSULIN DETEMIR 100 UNIT/ML PEN SQ SCH ×2 (09:00→17:32)
--- NOTE | 2018-10-26 09:22 | Progress Note ---
DATE: October 26, 2018 SUBJECTIVE: Patient seen at bedside. Doing well. Denies any history of fever, chills, nausea, or vomiting. OBJECTIVE VITAL SIGNS: Afebrile, pulse rate 64, respirations 18, blood pressure 110/51, O2 saturation 95%. EXTREMITIES: Ulcerations to both lower extremities improving. Granular fibrotic base. No tendon or bone exposed down to muscle to the left foot down to subcutaneous tissue and dermis to the right measuring 2.5 cm in diameter, and 1.5 cm in diameter on plantar aspect of right 1st metatarsophalangeal joint. Pedal pulses are palpable. Decreased periwound cellulitis. No foul smell. ASSESSMENT 1. Grade 3 ulcer, left. 2. Grade 2 ulcer, right. PLAN: Sharp excisional debridement of the ulcers were carried down to muscle and subcutaneous tissue respectively. Devitalized tissue sharply excised until good viable bleeding tissue achieved. Sterile dressings applied. Will continue Santyl followed by diluted wet-to-dry Betadine. Continue Bactroban followed by diluted wet-to-dry Betadine to the right. Continue IV antibiotics. Continue to monitor progression. Continue offloading Job#: [id number] NV
--- NOTE | 2018-10-26 10:34 | NUR ---
CALLED DR. MULLER TO GET AN ORDER FOR AJ DC ASKED BY CHARGE NURSE.
--- NOTE | 2018-10-26 13:00 | NUR ---
DC'D AJ CATHETER WITH TIP INTACT. PATIENT IS DTV @ 2100.
--- NOTE | 2018-10-26 13:21 | NUR ---
PATIENT VOIDED AT THIS TIME.
--- NOTE | 2018-10-26 18:15 | NUR ---
PATIENT STATED SHE HAS VOIDED ABOUT 3 TIMES SINCE AJ CATHETER DC'D
--- NOTE | 2018-10-26 19:09 | NUR ---
REPORT GIVEN TO ONCOMING NURSE. PATIENT IS RESTING IN BED. NO S/S OF DISTRESS NOTED. CALL LIGHT WITHIN REACH. BED IN THE LOWEST POSITION.
--- NOTE | 2018-10-26 19:15 | NUR ---
Received pt in bed watching tv. No resp distress. C/o pain to BLE rating 8 pain scale. Has debridement done by MD during dayshift to both feet. Dressing intact, dry, and no drainage. Call light within reach and instructed to call for assistance.
[2018-10-26] MEDS: SIMVASTATIN 20 MG TAB PO SCH (20:12)
[2018-10-27] VITALS (9 sets, daily range): BP systolic 135–150; BP diastolic 63–91
[2018-10-27] MEDS: PIPER-TAZ 3.375 GM 50 ML IV SCH ×5 (00:13→23:01)
--- NOTE | 2018-10-27 04:30 | NUR ---
PT STATED DRESSING TO L FOOT IS OFF. WOUND CARE PERFORMED TO L FOOT. R FOOT DRESSING C,D,I.
--- NOTE | 2018-10-27 07:10 | NUR ---
RECEIVED PATIENT RESTING IN BED. NO ACUTE DISTRESS NOTED. DENIES PAIN OR DISCOMFORT AT THIS TIME. CALL LIGHT WITHIN REACH. BED IN THE LOWEST POSITION.
[2018-10-27] MEDS: INSULIN REGULAR, HUMAN 100 UNIT/1 ML 3ML VIAL SQ SCH ×4 (07:30→21:00)
[2018-10-27] MEDS: INSULIN DETEMIR 100 UNIT/ML PEN SQ SCH ×2 (08:32→17:20)
[2018-10-27] MEDS: LORATADINE 10 MG TAB PO SCH (08:32)
[2018-10-27] MEDS: COLLAGENASE OINTMENT 30 GM TUBE TP SCH (08:33)
[2018-10-27] MEDS: ENALAPRIL MALEATE 10 MG TAB PO SCH (08:33)
--- NOTE | 2018-10-27 10:07 | Progress Note ---
DATE: October 27, 2018 SUBJECTIVE: Patient seen at bedside. Doing significantly better. Denies any history of fever, chills, nausea, or vomiting. OBJECTIVE VITALS: Afebrile, pulse rate 96, respiration 18, blood pressure 135/91, O2 saturation 95%. EXTREMITIES: Ulcerations to both lower extremities continue to improve. Granular fibrotic base. No signs of any purulent drainage with minimal to no foul smell with positive periwound cellulitis present. Ulcerations become more superficial and smaller to both lower extremities. LABS: Noted. Has a white blood cell count of 7.5. ASSESSMENT 1. Grade 3 ulcer, left. 2. Grade 2 ulcer, right with severe calcaneal valgus structure with peripheral neuropathy. PLAN: Will continue local wound care. Continue IV antibiotics. Possible discharge tomorrow. Job#: [id number] TAI
[2018-10-27] MEDS ORDERED: SODIUM CHLORIDE 0.9% 250ML 250 ML ONE (12:22)
--- NOTE | 2018-10-27 19:16 | NUR ---
REPORT GIVEN TO ONCOMING NURSE. PATIENT IS RESTING IN BED. NO ACUTE DISTRESS NOTED. NO S/S OF PAIN NOTED AT THIS TIME. CALL LIGHT WITHIN REACH. BED IN THE LOWEST POSITION.
[2018-10-27] MEDS: SIMVASTATIN 20 MG TAB PO SCH (20:25)
[2018-10-28 04:20] VITALS: BP 154/72
[2018-10-28] MEDS: PIPER-TAZ 3.375 GM 50 ML IV SCH ×2 (05:02→12:28)
[2018-10-28 07:20] VITALS: BP 132/66
--- NOTE | 2018-10-28 07:20 | NUR ---
RECEIVED PATIENT RESTING IN BED. NO ACUTE DISTRESS NOTED. DENIES PAIN OR DISCOMFORT. CALL LIGHT WITHIN REACH. BED IN THE LOWEST POSITION.
--- NOTE | 2018-10-28 07:29 | Progress Note ---
DATE: October 28, 2018 SUBJECTIVE: Patient at bedside. In good spirits. Denies any history of fever, chills, nausea, vomiting. OBJECTIVE VITALS: Afebrile, pulse rate 91, respirations 20, blood pressure 154/72, O2 saturation 97%. EXTREMITIES: Ulcerations to both lower extremities continue to improve. Decreased cellulitis. No malodorous. Has a grade 3 ulcer, left. Grade 2 ulcer, right with granulation tissue noted. Pedal pulses are palpable but diminished. ASSESSMENT: Diabetic neuropathy with grade 3 ulcer, left and grade 2 ulcer, right. PLAN: Continue local wound care. Okay to be discharged on oral antibiotics. Patient to follow up within the week in the office. Job#: [id number] TAI
[2018-10-28] MEDS: INSULIN REGULAR, HUMAN 100 UNIT/1 ML 3ML VIAL SQ SCH ×2 (07:30→12:28)
[2018-10-28 08:08] VITALS: BP 132/66
[2018-10-28] MEDS: LORATADINE 10 MG TAB PO SCH (08:42)
[2018-10-28] MEDS: COLLAGENASE OINTMENT 30 GM TUBE TP SCH (08:43)
[2018-10-28] MEDS: INSULIN DETEMIR 100 UNIT/ML PEN SQ SCH (08:43)
[2018-10-28] MEDS: ENALAPRIL MALEATE 10 MG TAB PO SCH (08:43)
--- NOTE | 2018-10-28 10:45 | NUR ---
CASE MANAGEMENT NOTIFIED NURSE THAT PATIENT IS SET FOR HOME HEALTH AND IS OK TO DISCHARGE.
--- NOTE | 2018-10-28 12:04 | Discharge Summary ---
PRIMARY CARE PHYSICIAN: Dr. Adams Douglas CONSULTANTS: Dr. Ravin Mejia and Dr. Melvin Worthington and Dr. Montrell Mason. FINAL DIAGNOSES 1. Sick sinus syndrome associated with atrioventricular block, third-degree, severe. Bradycardia, status post permanent pacemaker on the left chest. 2. Bilateral infected diabetic foot ulcer, status post debridement. 3. Baseline multiple chronic medical problems, including diabetes, type 2, hypertension, chronic anemia, chronic kidney disease. SUMMARY: Patient is a 62-year-old female who came into the hospital with complaint of bilateral foot ulcer, but also at the same time increasing shortness of breath and difficulty breathing, especially with exertion. Found that the patient had an AV nima block, third-degree. Heart rate in the 30s. The patient immediately placed on a temporary pacer and admitted to the hospital. The patient subsequently seen by Dr. Ravin Mejia and confirmed the AV block, third-degree. Subsequently, Dr. Melvin Worthington was consulted and the patient had a permanent pacemaker placed in the left chest. She also has bilateral foot infected diabetic foot ulcer. Dr. Montrell Mason saw the patient and did some debridement. The patient's ulcer is much better now. Wound care is ongoing and is healing. The patient's blood culture was negative. Patient had significant improvement of both feet and wound care in process. Home health has been arranged. The patient will discharge home today. She will take minocycline for permanent pacemaker placement and antibiotics, but also will help with her wound as well. Minocycline will be for days. Claritin 10 mg daily. Proair HFA 2 puffs q.4 h. p.r.n., Tylenol No. 3 p.r.n. for pain, Tessalon Perles as needed for cough. The patient is otherwise stable. She will discharge today. She will follow up with Dr. Mason. Wound care per his instructions. She will follow up with her family physician, Dr. Adams Douglas and also Dr. Ravin Mejia within 1-2 weeks. Patient is stable and discharged home today. She is eager to go home. Home health has been arranged. Job#: [id number] DE
[2018-10-28 12:45] VITALS: BP 137/62
--- NOTE | 2018-10-28 14:40 | NUR ---
PATIENT HAS A DISCHARGE ORDER. PATIENT'S REFUSES TO TAKE PATIENT HOME, HE THINKS IS UNSAFE DUE TO PATIENT BEING A HOARDER. HE WOULD RATHER FOR PATIENT GO TO A SNF. NOTIFIED TIMING ADJUSTER. CALLED DR. MULLER, NO ANSWER, LVM.
--- NOTE | 2018-10-28 14:52 | NUR ---
DR. MULLER CALLED BACK AND INFORMED HIM OF SITUATION. RIANNA MCMAHON AND ASSISTANT QUALITY MANAGER JOSE MIGUEL IN THE ROOM TO SPEAK TO . GIVEN MEDICARE PAPERWORK SO THAT HE CAN APPEAL THE DISCHARGE, HE THREW THE PAPER ON THE FLOOR. AFTER SPEAKING TO RIANNA AND ASSISTANT QUALITY MANAGER AND EXPLAINING THAT PATIENT WILL HAVE HOME HEALTH SET UP, AGREED TO TAKE PATIENT HOME. DR. MULLER ALSO NOTIFIED THAT PATIENT IS GOING HOME.
--- NOTE | 2018-10-28 15:02 | NUR ---
PATIENT DISCHARGED AT THIS TIME. SHE IS IN STABLE CONDITION. IV LINE DC'D WITH TIP INTACT, PRESSURE APPLIED TO SITE, NO BLEEDING NOTED. DISCHARGE TEACHING PROVIDED, PATIENT VERBALIZED UNDERSTANDING. ALL PERSONAL ITEMS, DISCHARGE PAPERWORK, AND PRESCRIPTIONS PLACED ON DISCHARGE FOLDER. PATIENT ACCOMPANIED TO PRIVATE AUTO VIA WHEELCHAIR BY STAFF.
== END 2018-10-28 15:02 | disposition home health service (06) | DRG 243 ==
LOC: ER 13:58 → ERHOLD 19:45 → IMCU 10-19 03:00 → MED/SURG3 10-25 18:22
PROVIDERS: ADMIT Internal Medicine; ATTEND Internal Medicine
PROC: 0JH606Z Insertion of Pacemaker, Dual Chamber into Chest Subcutaneous Tissue and Fascia, Open Approach (ICD-10-PCS; principal; 2018-10-20)
PROC: 02H63JZ Insertion of Pacemaker Lead into Right Atrium, Percutaneous Approach (ICD-10-PCS; 2018-10-20)
PROC: 02HK3JZ Insertion of Pacemaker Lead into Right Ventricle, Percutaneous Approach (ICD-10-PCS; 2018-10-20)
PROC: 0KBW0ZZ Excision of Left Foot Muscle, Open Approach (ICD-10-PCS; 2018-10-22)
PROC: 0KBV0ZZ Excision of Right Foot Muscle, Open Approach (ICD-10-PCS; 2018-10-22)
DX: I49.5 Sick sinus syndrome (principal); L97.525 Non-pressure chronic ulcer of other part of left foot with muscle involvement without evidence of necrosis; L97.516 Non-pressure chronic ulcer of other part of right foot with bone involvement without evidence of necrosis; L03.90 Cellulitis, unspecified; I44.2 Atrioventricular block, complete; E11.621 Type 2 diabetes mellitus with foot ulcer; Z79.4 Long term (current) use of insulin; E11.40 Type 2 diabetes mellitus with diabetic neuropathy, unspecified; L97.511 Non-pressure chronic ulcer of other part of right foot limited to breakdown of skin; E11.51 Type 2 diabetes mellitus with diabetic peripheral angiopathy without gangrene
CPT/HCPCS: 33208; 36415; 51700; 71045; 80048; 80053; 80202; 81001; 82550; 82553; 82607; 82948; 83036; 83605; 83735; 84100; 84443; 84484; 85025; 85610; 87040; 93005; 93306; 93970; 96360; 96367; 96372; 97139; 99284; C1785; C1898; J1200; J2001; J2250; J2270; J2543; J2930; J3370; J7030; J7040; J7050

== ENCOUNTER 2019-07-11 19:44 | Inpatient (IN) | payer OTHER ==
[~2019-07-11] VITALS: Ht 162.6 cm; Wt 79.4 kg
[~2019-07-11 19:44] MED LIST changes: -AMILORIDE HCL-1 EACH; +AMILORIDE HCL-1 EACH PO; -ASPIRIN81 MG; +ASPIRIN81 MG PO
[2019-07-11] MEDS ORDERED: PIPER-TAZ 3.375 GM 50 ML IV STA (20:17)
[2019-07-11] MEDS ORDERED: SODIUM CHLORIDE 0.9% 1000ML 1,000 ML IV STA ×2 (20:17→21:21)
[2019-07-11] MEDS ORDERED: VANCOMYCIN 1GM/NS 250 ML 250 ML IV STA (20:17)
[2019-07-11] MEDS ORDERED: SODIUM CHLORIDE 0.9% 1000ML 1,000 ML ONE (20:18)
--- NOTE | 2019-07-11 20:20 | NUR ---
PT ARRIVED VIA EMS AT 194. PLACED ON MONITOR. VS OBTAINED. BP 85/44. CLASSIFIER EDY TO ROOM. NS BOLUS ORDERED. IV STARTED C 20GA TO L FA. NS BOLUS STARTED PER ORDERS.
[2019-07-11 20:26] LABS: BASOPHILS % 0.2 % (0.0-1.0); EOSINOPHILS # (AUTO) 0.1 (0.0-0.4); EOSINOPHILS % 0.6 % (0.0-6.0); HEMATOCRIT 26.5 % (34.2-44.1); HEMOGLOBIN 8.3 g/dL (12.0-16.0); LYMPHOCYTES # (AUTO) 0.7 (1.0-3.2); LYMPHOCYTES % 3.2 % (18.0-39.1); MEAN CORPUSCULAR HEMOGLOBIN 23.2 pg (28-32); MEAN CORPUSCULAR HGB CONC 31.3 g/dL (31-35); MEAN CORPUSCULAR VOLUME 74.2 fL (81-99); MONOCYTES # (AUTO) 0.7 (0.2-0.8); MONOCYTES % 3.3 % (4.4-11.3); NEUTROPHILS # (AUTO) 20.3 (2.1-6.9); NEUTROPHILS % 90.9 % (38.7-80.0); PLATELET COUNT 528 x10e3/uL (140-360); RED BLOOD COUNT 3.57 x10e6/uL (3.6-5.1); RED CELL DISTRIBUTION WIDTH 16.3 % (11.7-14.4)
[2019-07-11] MEDS ORDERED: ONDANSETRON HCL INJ 2MG/ML 2ML 2 MG/ML VIAL IV NR (20:30)
[2019-07-11 20:41] LABS: ALBUMIN 2.1 g/dL (3.5-5.0); ALBUMIN/GLOBULIN RATIO 0.4 (0.8-2.0); ANION GAP 16.5 mmol/L (8-16); CALCIUM 9.7 mg/dL (8.4-10.2); CREATININE, SERUM 2.17 mg/dL (0.57-1.11); MAGNESIUM 1.9 MG/DL (1.3-2.1); POTASSIUM 4.5 mmol/L (3.5-5.1)
[2019-07-11 20:47] LABS: CREATINE KINASE MB 0.6 ng/mL (0-5.0)
[2019-07-11 20:51] LABS: B-TYPE NATRIURETIC PEPTIDE2 113.7 pg/mL (0-100)
[2019-07-11 21:11] LABS: BILIRUBIN,URINE SMALL (NEGATIVE); CLARITY,URINE SL CLOUDY (CLEAR); KETONES,URINE NEGATIVE (NEGATIVE); LEUKOCYTE ESTERASE ,URINE NEGATIVE (NEGATIVE); NITRITE,URINE NEGATIVE (NEGATIVE); PROTEIN,URINE DIPSTICK 2+ (NEGATIVE); URINE UROBILINOGEN 0.2 mg/dL (0.2 - 1)
[2019-07-11 21:14] LABS: COLOR,URINE STRAW (YELLOW)
[2019-07-11 21:23] LABS: AMORPHOUS SEDIMENT,URINE MANY (FEW); BACTERIA,URINE MODERATE /HPF; EPITHELIAL CELLS,URINE FEW /LPF; WBC,URINE (MAN) 0-5 /HPF (0-5)
--- NOTE | 2019-07-11 21:24 | NUR ---
BP 85/46. MD INFORMED. 2ND LITER NS BOLUS ORDERED. STARTED AT THIS TIME.
[2019-07-11] MEDS ORDERED: SODIUM CHLORIDE 0.9% 1000ML 1,000 ML IV ONE (22:00)
--- NOTE | 2019-07-11 22:04 | NUR ---
BP 80/47. DR GIRALDO INFORMED. SECOND NS BOLUS ORDERED. SECOND LITER STARTED AT THIS TIME. Addendum: 07/12/19 at 0237 by CARINA BP 80/47. DR GIRALDO INFORMED. THIRD NS BOLUS ORDERED. THIRD LITER STARTED AT THIS TIME.
--- NOTE | 2019-07-11 22:21 | Diagnostic Imaging Report ---
EXAMINATION: CHEST SINGLE (PORTABLE) COMPARISON: Chest x-ray 10/18/2018 INDICATION: Osteomyelitis ^ERMD ORDER ^[id number] ^2124 ^Y DISCUSSION: Frontal view of the chest obtained at 2142 hours. HEART AND MEDIASTINUM: Stable cardiomegaly and pulmonary venous prominence. Dual-lead pacemaker wires terminate in the right atrium and right ventricle. There are calcifications of the aortic arch LINES: None. LUNGS: Minimal bibasilar atelectasis. No pneumonia or pulmonary edema. PLEURA: There is stable blunting of the left lateral costophrenic angle. Right costophrenic angle is sharp. No pneumothorax BONES AND SOFT TISSUES: No focal osseous lesion. The soft tissues are normal. IMPRESSION: Mild cardiomegaly and pulmonary venous hypertension. Blunting of the left lateral costophrenic angle suggestive of pleural effusion or pleural thickening. Signed by: Dr. Dana Khan MD on 07/11/2019 10:18 PM
--- NOTE | 2019-07-11 22:28 | Diagnostic Imaging Report ---
Foot complete CPT code: 24921 Indication: Large wound medial aspect of left foot ^rule out osteo, septic ^[id number] ^2124 Technique: Portable A.P., oblique and lateral views of the left foot obtained. Comparison: X-rays 10/20/2018 Findings: The bones are diffusely demineralized. Calcaneus is intact with a prominent plantar spur. The midfoot is intact. There is focal demineralization of the navicular without significant periosteal new bone formation. There is overlying soft tissue swelling. Partial amputation of the second digit is redemonstrated. Hallux valgus is stable. No periosteal new bone formations or focal demineralization. Significant soft tissue swelling and ulceration along the medial aspect of the midfoot without radiopaque foreign body. Significant soft tissue swelling of the dorsum of the foot at the mid metatarsals. IMPRESSION: Focal demineralization of the navicular at the area of soft tissue swelling is concerning for osteomyelitis. Stable hallux valgus and second digit amputation. Signed by: Dr. Dana Khan MD on 07/11/2019 10:25 PM
--- NOTE | 2019-07-11 23:02 | Diagnostic Imaging Report ---
CT Abdomen and Pelvis without contrast INDICATION: Nausea, vomiting ^abdominal pain ^[id number] ^0 TECHNIQUE: Thin collimation axial images obtained from the diaphragm to the level of the pubic symphysis without nonionic intravenous contrast. Oral contrast was administered. Dose reduction techniques used: Automated exposure control, adjustment of the mAs and/or kVp according to patient size, standardized low-dose protocol, and/or iterative reconstruction technique. RADIATION DOSE: Total DLP: 574.1 mGy*cm Estimated effective dose: (DLP x 0.015 x size factor) mSv CTDIvol has been reviewed. It is below the limits set by the Radiation Protocol Committee (RPC). COMPARISON: CT abdomen/pelvis 06/09/2015. ABDOMEN FINDINGS: Lung Bases: Mild bibasilar atelectasis. The heart is enlarged with pacemaker wires in the right atrium and right ventricle. The cardiac chambers are visible suggestive of anemia. Pericardial fat pads are prominent. There is a small hiatal hernia. Fat and prominent lymph nodes within a hiatal hernia are stable. Liver: Steatosis. Gallbladder: Absent. No ductal dilatation. Pancreas: Fatty atrophy. No mass or ductal dilatation. Spleen: Normal size without mass. Adrenal Glands: No evidence for mass. Kidneys: Right: No renal calculus. No cortical mass or hydronephrosis Left: No renal calculus. No cortical mass or hydronephrosis Lymph Nodes: No enlarged zulema hepatis or periaortic lymph nodes. Aorta: Normal in diameter. PELVIS FINDINGS: Bowel: Stomach: Normal. Small Bowel: Normal in caliber with normal wall thickness. Large Bowel: Diverticulosis coli. No associated inflammation. Appendix: Not visualized and may be absent. Bladder: Underdistended but otherwise normal. Ureters: No ureteral dilatation or calculus. The uterus is absent. No adnexal mass. Peritoneum/retroperitoneum: No free fluid or fluid collection. Bones: Mild degenerative changes of the spine are stable. Stable levoscoliosis. No focal osseous lesions. Soft tissues: Unremarkable. IMPRESSION: 1. Diverticulosis coli. No evidence of diverticulitis. No bowel obstruction. Stable small hiatal hernia. 2. Status post cholecystectomy and hysterectomy. The appendix is not visualized and may be also be absent. 3. Steatosis. Suspected anemia. Signed by: Dr. Dana Khan MD on 07/11/2019 10:58 PM
--- NOTE | 2019-07-11 23:08 | NUR ---
PT REMAINS HYPOTENSIVE AFTER 3 LITERS NS. AWARE. MD AT BEDSIDE INSERTING CENTRAL LINE. STATES THAT PT TO BE STARTED ON LEVOPHED P CENTRAL LINE PLACED.
[2019-07-11] MEDS ORDERED: NOREPINEPHRINE 8 MG/D5W 250 ML 250 ML ONE (23:17)
[2019-07-11] MEDS ORDERED: NOREPINEPHRINE INJ 4MG/4ML 8 MG in DEXTROSE 5% 250ML 250 ML IV SCH (23:30)
[2019-07-11] MEDS ORDERED: DEXTROSE 50% SYRINGE 50 ML IV PRN (23:45)
[2019-07-11] MEDS ORDERED: ATORVASTATIN CA10 MG PO (23:51)
[2019-07-11] MEDS ORDERED: GLIPIZIDE5 MG PO (23:51)
[2019-07-11] MEDS ORDERED: BENZONATATE100 MG PO (23:51)
[2019-07-11] MEDS ORDERED: LEVEMIR100 UNIT/1 SQ (23:54)
[2019-07-12] VITALS (19 sets, daily range): BP systolic 87–160; BP diastolic 40–129
[2019-07-12] MEDS: SODIUM CHLORIDE 0.9% 1000ML 1,000 ML IV SCH ×4 (00:20→23:56)
[2019-07-12] MEDS: VANCOMYCIN 1GM/NS 250 ML 250 ML IV SCH ×2 (00:28→23:56)
[2019-07-12] MEDS: NOREPINEPHRINE INJ 4MG/4ML 8 MG in DEXTROSE 5% 250ML 242 ML IV SCH ×2 (00:28→23:45)
[2019-07-12 01:14] LABS: INR 1.19; PROTHROMBIN TIME 15.7 seconds (11.9-14.5)
[2019-07-12 01:15] LABS: PARTIAL THROMBOPLASTIN TIME 40.1 seconds (23.8-35.5)
[2019-07-12 01:27] LABS: CREATINE KINASE MB 0.5 ng/mL (0-5.0)
[2019-07-12] MEDS ORDERED: MORPHINE SULFATE 2 MG/ML SYR 1ML IV STA (05:53)
[2019-07-12] MEDS: PIPERACILLIN/TAZO 2.25 GM 50 ML IV SCH ×3 (06:11→21:21)
[2019-07-12 07:25] LABS: BASOPHILS % 0.1 % (0.0-1.0); EOSINOPHILS # (AUTO) 0.3 (0.0-0.4); EOSINOPHILS % 1.1 % (0.0-6.0); LYMPHOCYTES # (AUTO) 0.8 (1.0-3.2); LYMPHOCYTES % 3.7 % (18.0-39.1); MEAN CORPUSCULAR HEMOGLOBIN 23.1 pg (28-32); MEAN CORPUSCULAR VOLUME 74.6 fL (81-99); MONOCYTES # (AUTO) 0.9 (0.2-0.8); MONOCYTES % 4.1 % (4.4-11.3); NEUTROPHILS # (AUTO) 19.6 (2.1-6.9); NEUTROPHILS % 88.9 % (38.7-80.0); PLATELET COUNT 472 x10e3/uL (140-360); RED BLOOD COUNT 3.03 x10e6/uL (3.6-5.1); RED CELL DISTRIBUTION WIDTH 16.2 % (11.7-14.4)
--- NOTE | 2019-07-12 07:36 | NUR ---
Called Dr Wallis's answering service for consult due to sepsis. Message left with answering service staff.
[2019-07-12 07:47] LABS: HEMATOCRIT 22.6 % (34.2-44.1)
[2019-07-12 07:52] LABS: CREATINE KINASE MB 0.5 ng/mL (0-5.0)
[2019-07-12 08:09] LABS: ALBUMIN 1.7 g/dL (3.5-5.0); ALBUMIN/GLOBULIN RATIO 0.4 (0.8-2.0); ANION GAP 10.9 mmol/L (8-16); CALCIUM 8.3 mg/dL (8.4-10.2); CREATININE, SERUM 1.23 mg/dL (0.57-1.11); POTASSIUM 3.9 mmol/L (3.5-5.1)
[2019-07-12] MEDS: INSULIN REGULAR, HUMAN 100 UNIT/1 ML 3ML VIAL SQ SCH ×4 (09:17→20:38)
[2019-07-12] MEDS: HYDROCODONE/APAP 10MG-325MG TAB PO PRN ×3 (09:26→23:43)
[2019-07-12 09:43] LABS: FOLATE 3.5 ng/mL (7.0-15.4)
[2019-07-12 11:16] LABS: THYROID STIMULATING HORMONE 1.195 uIU/mL (0.350-4.940)
[2019-07-12] MEDS ORDERED: NOREPINEPHRINE 8 MG/D5W 250 ML 250 ML ONE (12:36)
--- NOTE | 2019-07-12 12:55 | Diagnostic Imaging Report ---
EXAM: CHEST XRAY LINE PLACEMENT DATE: 07/12/2019 12:33 PM INDICATION: PICC placement COMPARISON: 07/11/2019 FINDINGS: There has been interval placement of a right upper from the PICC line with distal tip terminating at the expected level of the cavoatrial junction. Left-sided dual-lead pacing device identified in stable position. The remainder of the examination is unchanged from the recent prior examination. There is no evidence for any new large focal consolidation or pneumothorax. There is stable blunting of left costophrenic angle and a trace pleural effusion is possible. The cardiomediastinal silhouette is stable in appearance. No acute osseous abnormalities identified. IMPRESSION: Interval placement of a right upper extremity PICC line with tip appropriately terminating over the cavoatrial junction. Signed by: Dr. Cosmo Cowan MD on 07/12/2019 12:51 PM
--- NOTE | 2019-07-12 14:59 | History and Physical ---
PRIMARY CARE PHYSICIAN: Dr. Adams Douglas. CONSULTANTS: 1. Dr. Robel Bacon for Critical Care. 2. Dr. Montrell Mason. 3. Dr. Leonela Wallis. CHIEF COMPLAINT: Sepsis with shock associated with low blood pressure. HISTORY OF PRESENT ILLNESS: The patient is a 63-year-old female, came to the hospital with sepsis, WBC of 22,000. The patient's blood pressure did not respond to multiple bolus of IV fluids. The patient's blood pressure systolic in the 90 to 96 systolic. The patient is also anemic with hemoglobin and hematocrit of 7 and 22.6. The patient does have chronic kidney disease. She did have dehydration on admission, however. Her creatinine was 2.17. The patient had a femoral line, which will be removed and have a PICC line. The patient is otherwise stable at this time. She had imaging done, CT abdomen and pelvis, chest x-ray and also the patient had a foot x-ray, but only in the left, not the right. The left showed possible osteomyelitis. The patient is otherwise stable. PAST MEDICAL HISTORY: 1. Severe left foot ulcer for months and then right foot ulcer as well. 2. Chronic kidney disease. 3. Hypertension. 4. Dyslipidemia. 5. Diabetes type 2. PAST SURGICAL HISTORY: 1. Hysterectomy. 2. Cholecystectomy. 3. Multiple foot surgery. SOCIAL HISTORY: The patient lives with her . ALLERGIES: LATEX AND IODINE. HOME MEDICATIONS: List reviewed. REVIEW OF SYSTEMS: In pain, but she is awake and alert. PHYSICAL EXAMINATION: VITAL SIGNS: Temperature is 100. Blood pressure was 85/44, multiple bolus now much improved with 91/45, pulse rate is 88, respirations 20. GENERAL: The patient is in pain, but she is not in distress. HEENT: Normocephalic, atraumatic. Pupils are reactive. Anicteric. NECK: Supple grossly. PULMONARY: Diminished breath sounds. CARDIOVASCULAR: S1, S2. Regular rate and rhythm. ABDOMEN: Soft. EXTREMITIES: Left foot plantar surface with open wound ulcer with infection. Right foot also pressure ulcer wound as well. NEUROLOGIC: Diabetic neuropathy. Moving all extremities without any gross focal deficit. LABORATORY DATA: WBC 22,000, hemoglobin 7, hematocrit 22.6, and platelet is 472. Chemistry; sodium was 124, potassium 3.9, chloride 94, bicarb 23, BUN 31, creatinine 1.2, glucose 196. IMAGING TEST: Left foot osteomyelitis on the plantar surface. IMPRESSION: 1. Sepsis with shock. 2. Bilateral foot, infected diabetic foot ulcer with osteomyelitis. 3. Diabetes type 2, on multiple medication. 4. Diabetic neuropathy. 5. Chronic kidney disease. PLAN: Continue with IV antibiotic. Insulin sliding scale coverage. Pressure support. Consultation with specialist as mentioned. The patient will need wound care. Continue with checking the patient's lab work. We will monitor the patient cultures. We will continue to follow and adjust the medication. MD JARED Chambers/MODL /[id number]
--- NOTE | 2019-07-12 15:29 | Consultation ---
DATE OF CONSULTATION: Critical Care Consultation REASON FOR CONSULT: Sepsis and septic shock. HISTORY OF PRESENT ILLNESS: Ms. Mckeon is a 63-year-old female. She was brought into the emergency room by the because she passed out and she was having abdominal pain. In the ED, she was found to be hypotensive and a central line was placed. The patient was given 2 to 3 L of fluid and was started on IV Levophed. She has a wound on her left foot, which has been diagnosed with the osteomyelitis in the past. She is hard of hearing. She denies any complaints of chest pain, nausea, vomiting. She is still requiring 8 mcg of Levophed to keep her blood pressure. REVIEW OF SYSTEMS: GENERAL: Denies any fever or chills. HEAD: Denies any head trauma. ENT: Denies any earache. CVS: Denies any chest pain. RESPIRATORY: Denies any shortness of breath. The rest of the review of systems are negative except as in HPI. 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 PAST SURGICAL HISTORY: As above. FAMILY AND SOCIAL HISTORY: She does not smoke. Does not drink. Lives with her . PHYSICAL EXAMINATION: VITAL SIGNS: Temperature 97.9, pulse of 76, blood pressure 118/58, respiratory rate of 18, O2 saturation 100%. HEENT: Head is atraumatic, normocephalic. NECK: Supple. CHEST: Clear to auscultation bilaterally. ABDOMEN: Soft. NEURO: Awake and alert. EXTREMITIES: The left foot wound has purulent discharge. LABORATORY DATA: [place] [address], hemoglobin 8.3, platelets 528. Chemistry; sodium 124, potassium 3.9, chloride 94, BUN 31, creatinine 1.23, was 2.17 yesterday. The patient was given IV fluids. Lactic acid was 20.9, is down to 8.5 now. Abdomen and pelvis CT was done, which showed diverticulosis, status post cholecystectomy and hysterectomy. No source of infection. Chest x-ray, cardiomegaly. Foot x-ray, focal demineralization of navicular at the area of soft tissue swelling is concerning for osteomyelitis. ASSESSMENT: Ms. Mckeon is a 63-year-old female came in with hypotension and dizziness. Current problem: 1. Septic shock, present on admission secondary to osteomyelitis. 2. Diabetes. 3. History of hypertension. 4. Acute kidney injury that is resolving. Creatinine is now 1.23. PLAN: 1. Continue the patient on IV Zosyn and vancomycin for osteomyelitis. Podiatry and ID have been consulted. We will follow their recommendation. 2. She has received multiple fluid boluses. Now, she is on IV hydration. Continue the patient on Levophed. Oxygen as needed to keep the O2 saturation more than or equal to 92%. Critical care time spent 50 minutes. MD SHAISTA Marshall/JOSS /[id number]
--- NOTE | 2019-07-12 16:20 | Consultation ---
DATE OF CONSULTATION: REASON FOR CONSULTATION: Bilateral feet ulcer. HISTORY OF PRESENT ILLNESS: This patient, who is a 63-year-old white female, who comes in the hospital with altered mental status. She was found to have a white count of 22,000. She was admitted. She also has bilateral lower extremities ulcer, neuropathy. The patient came to emergency room and she was given IV fluid without improvement. She remained 90s in the systolic, so she was in the emergency room and sent to the intensive care unit. The patient is currently alert, has no complaints but confused, asked very simple questions. No pain. No nausea, no vomiting, no diarrhea noted. The patient has bilateral feet ulcers and severe left foot ulcer for a month and then the right foot ulcer. She does have underlying history of chronic disease, hypertension, hyperlipidemia, and diabetes mellitus. She also has history of hysterectomy, cholecystectomy, multiple feet surgery. She is coming with the above complaints to the emergency room. She was evaluated. She was given IV fluids. Her creatinine was 2.17. She had a femoral line, which was removed and a PICC line was inserted. She had a CT scan of abdomen and pelvis, and chest x-ray. The patient is currently lying in bed comfortably now. PAST MEDICAL HISTORY: As above. PAST SURGICAL HISTORY: As above. ALLERGIES: IODINE. SOCIAL HISTORY: There is no smoking, drug abuse or alcohol abuse. FAMILY HISTORY: Otherwise noncontributory. LABORATORY DATA: Reviewed. Her white count when she first came was 22.36, today 22.03, hemoglobin 8.3 and 7, platelet of 472. The diff is showing 90% neutrophils. Her sodium is 124, potassium 3.9, creatinine 1.23. Liver enzymes within normal limit. Alkaline phosphatase 296. BNP 113. The patient had a CT scan of abdomen and pelvis, which showed diverticulosis, no evidence of diverticulitis, status post cholecystectomy and hysterectomy. Appendix was not visualized. Chest x-ray showed mild cardiomegaly. REVIEW OF SYSTEMS: Could not be obtained. PHYSICAL EXAMINATION: GENERAL: She is stable since she came to now. VITAL SIGNS: There is no fever. Temperature 99.7. HEENT: Normocephalic. NECK: Supple. No JVD. No lymphadenopathy. No thyromegaly. CHEST: Clear. HEART: S1, S2. No S3, S4. No murmur. ABDOMEN: Soft, obese. No tenderness. No hepatomegaly. EXTREMITIES: There is no edema. History of Charcot joint. She has feet ulcers, bilateral noted. There is a large wound on the medial aspect of the left foot, which is deep. Second toe amputation noted. IMPRESSION: 1. Leukocytosis, persistent. I am not so sure if that is infection or reactive or other. The patient has no fever since admission, currently confused. I do not have any family to get any further information. 2. Obesity. 3. Chronic kidney disease. 4. Diabetes mellitus. 5. Osteomyelitis of the left foot with chronic wound and neuropathy. 6. Gram-positive cocci bacteremia and sepsis. PLAN: We will put the patient on vancomycin and Zosyn. We will adjust for kidney function. We will modify after the availability of cultures and sensitivity. Recheck blood cultures. If it is Staph aureus, then certainly would need echocardiogram, etc., that could be source of her sepsis. We will follow with you. MD DICK Win/MODL /[id number]
--- NOTE | 2019-07-12 19:00 | NUR ---
Bedside report received Spencer Magallon RN.
--- NOTE | 2019-07-12 19:20 | NUR ---
Dr. Mason present and assessing the pt. New dressing orders received. Dressing change completed at this time. Pt reported to Dr. Mason that she is not allergic to iodine, Dr. Mason reports he has used iodine on the pt. Addendum: 07/12/19 at 1930 by Elvia Barfield RN Wound culture also obtained and sent at this time. Left foot wound culture.
--- NOTE | 2019-07-12 19:23 | NUR ---
Nutrition Intervention Note RD Recommendation(s) for Physician: -Continue diet as ordered -Rec Dmitry BID for stage II open pressure wound on coccyx -Rec MVi w/ minerals and vitamin C for wound healing Plan of Care: RD following, monitoring for tolerance and adequacy, ONS rec Nutrition reason for involvement: Nutrition Risk Trigger MST RD Assessment 07/12 63yo F, who was admitted from home for sepsis with shock. Pt is deaf. Visited pt in the room. Pt reported good appetite and ate 100% of lunch today. Pt denied any nausea or vomiting. Pt denied any chewing or swallowing difficulty. Weight has been stable. Pt was agreeable with RDs recommendation for Dmitry BID. Will continue to monitor and follow. Principal Problems/Diagnoses: 1. Sepsis with shock. 2. Bilateral foot, infected diabetic foot ulcer with osteomyelitis. PMH: 1. Severe left foot ulcer for months and then right foot ulcer as well. 2. Chronic kidney disease. 3. Hypertension. 4. Dyslipidemia. 5. Diabetes type 2. GI: Abdomen soft, non-tender, large, LBM -07/12 Skin: stage II open pressure wound on coccyx, bilateral diabetic foot ulcers Labs: (07/12) Na 124 L, BUN 31 H, Creatinine 1.23 H, Glucose 196 H, Ca 8.3 L Meds: insulin, NaCl Ht: 64in Wt: 173.13lb BMI: 29.7kg/m2 IBW: 120lb +/- 10% Malnutrition Evaluation (07/12/2019) The patient does not meet criteria for a specified degree of malnutrition at this time. Will re-evaluate at follow-up as appropriate. Nutrition Prescription (Diet Order): ADA 1800 Estimated Nutritional Needs: Calories: 1404 1560kcal(18-20kcal/kg/d) Weight used: CBW Protein: 78 117g(1-1.5g/kg/d) Weight used: CBW Diet Adequacy: Meeting calorie needs, Not meeting protein needs Diet Education Needs Assessment: Diet education not indicated. Nutrition Care Level: low Nutrition Diagnosis: Increased protein needs related to altered skin integrity as evidenced by stage II open pressure wound on coccyx. Goal: Patient will meet 75-100% of estimated needs by follow up Progress: Progressing Interventions: Modified diet, Commercial food, Multivitamin/mineral supplement therapy Monitoring/Evaluation: Total energy intake, Total protein intake, Modified diet, supplement, Weight change Signed: Rhina Mcknight MS, RD, LD
[2019-07-12] MEDS: GABAPENTIN 100 MG CAP PO SCH (21:21)
[2019-07-13] VITALS (22 sets, daily range): BP systolic 96–134; BP diastolic 49–110
--- NOTE | 2019-07-13 02:02 | Consultation ---
DATE OF CONSULTATION: 07/12/2019 REASON FOR CONSULTATION: Nonhealing ulcerations to both lower extremities, possible osteomyelitis of left foot with patient being diabetic with severe peripheral neuropathy. HISTORY OF PRESENT ILLNESS: This is a pleasant 63-year-old, very hard to hear white female with a history of insulin-dependent diabetes, hypertension, hypercholesteremia, peripheral neuropathy, who is very well known to me secondary to nonhealing ulcerations secondary to the very poor wound management at home. The patient was admitted secondary to having sepsis and feeling somewhat dizzy. She is all with it today. Her white blood cell count is still in the 129[address]. Has a hemoglobin of 7.0, hematocrit 22.6 with a platelet count of 472. Has an INR of 1.19. PAST SURGICAL HISTORY: Remarkable for partial amputation 2nd toe left foot, pacemaker placement, hernia repair, hysterectomy. ALLERGIES: PATIENT DENIES. SOCIAL HISTORY: Denies any smoking, drinking, or recreational drug use. FAMILY HISTORY: Remarkable for diabetes. REVIEW OF SYSTEMS: CONSTITUTIONAL: The patient is alert and oriented x3. VASCULAR: Denies any palpitations or arrhythmias. RESPIRATORY: Denies any shortness of breath or productive cough. GASTROINTESTINAL: Denies any diarrhea or constipation. GENITOURINARY: Denies hematuria or problems voiding. PHYSICAL EXAMINATION: VITAL SIGNS: Afebrile, pulse rate 67, respirations 17, blood pressure 106/57, O2 saturation 97%. Podiatric physical examination reveals the following: VASCULATURE: Pedal pulses of both the DP and PT are palpable. SKIN: Temperature warm to touch. NEUROLOGIC: Reveals a complete loss of protective sensation when utilizing Partridge-Priscilla 5% monofilament wire. MUSCULOSKELETAL: Muscle mass to be asymmetrical, some swelling noted to the left foot compared to the right, has a grade 2 ulceration down the subcutaneous tissue, measuring 2 to 2.5 cm in diameter except first metatarsophalangeal joint, has an ulceration down to bone, measuring more than 4-5 cm in diameter medial aspect mid foot of the left foot. Some drainage, some foul smell present. X-rays were questionable for possible osteomyelitis to the navicular area. LABORATORY DATA: Labs noted and described above. ASSESSMENT: Osteomyelitis left foot with a grade 4 ulcer, grade 2 ulcer right, diabetic neuropathy, cellulitis with sepsis. PLAN: We will continue IV vancomycin and Zosyn as per Dr. Wallis. The patient was instructed that bedside debridement will be done tomorrow to both lower extremities down to bone to the left and down to subcutaneous tissue to the right. We will continue local wound care. We will start SilvaSorb gel followed by diluted wet-to-dry Betadine. We will treat the patient conservatively. We will try to avoid any type of amputation, but no guarantees can be given. BROOKLYN Gambino/MODL /[id number]
[2019-07-13] MEDS: HYDROCODONE/APAP 10MG-325MG TAB PO PRN ×2 (04:42→15:40)
[2019-07-13 05:15] LABS: BASOPHILS % 0.2 % (0.0-1.0); EOSINOPHILS % 6.5 % (0.0-6.0); LYMPHOCYTES % 12.5 % (18.0-39.1); MEAN CORPUSCULAR HEMOGLOBIN 23.4 pg (28-32); MEAN CORPUSCULAR HGB CONC 30.5 g/dL (31-35); MEAN CORPUSCULAR VOLUME 76.9 fL (81-99); MONOCYTES # (AUTO) 0.9 (0.2-0.8); MONOCYTES % 5.5 % (4.4-11.3); NEUTROPHILS # (AUTO) 11.4 (2.1-6.9); NEUTROPHILS % 72.7 % (38.7-80.0); PLATELET COUNT 484 x10e3/uL (140-360); RED CELL DISTRIBUTION WIDTH 16.4 % (11.7-14.4)
[2019-07-13 05:16] LABS: HEMATOCRIT 22.3 % (34.2-44.1); HEMOGLOBIN 6.8 g/dL (12.0-16.0)
[2019-07-13] MEDS: PIPERACILLIN/TAZO 2.25 GM 50 ML IV SCH (05:32)
[2019-07-13] MEDS: GABAPENTIN 100 MG CAP PO SCH ×3 (05:32→22:25)
[2019-07-13 05:59] LABS: ANION GAP 12.5 mmol/L (8-16); BLOOD UREA NITROGEN 17 mg/dL (7-26); BUN/CREATININE RATIO 22 (6-25); CALCIUM 8.5 mg/dL (8.4-10.2); CARBON DIOXIDE 23 mmol/L (22-29); CHLORIDE 101 mmol/L (98-107); CREATININE, SERUM 0.78 mg/dL (0.57-1.11); EST GLOMERULAR FILTRATION RATE > 60 ML/MIN (60-); GLUCOSE 140 mg/dL (74-118); POTASSIUM 4.5 mmol/L (3.5-5.1); SODIUM 132 mmol/L (136-145)
[2019-07-13 06:35] LABS: MAGNESIUM 1.8 MG/DL (1.3-2.1); PHOSPHORUS 2.4 MG/DL (2.3-4.7)
--- NOTE | 2019-07-13 06:45 | NUR ---
Message left for on his cell phone to report am lab results including Hgb 6.8. Currently awaiting his return call.
--- NOTE | 2019-07-13 07:00 | NUR ---
Bedside report given to Spencer Magallon RN. No distress noted at this time. Care plan reviewed. No family present.
[2019-07-13 08:50] LABS: ANISOCYTOSIS SLIGHT; BAND NEUTROPHILS % (MANUAL) 4 %; EOSINOPHILS % (MANUAL) 5 % (0-7); LYMPHOCYTES % (MANUAL) 16 % (19-48); MONOCYTES % (MANUAL) 9 % (3.4-9.0); NEUTROPHILS % (MANUAL) 66 % (40-74); POIKILOCYTOSIS SLIGHT
[2019-07-13 08:51] LABS: PLATELET ESTIMATE SLIGHTLY INCREASED; PLATELET MORPHOLOGY COMMENT FEW LARGE; RBC MORPHOLOGY COMMENT NORMAL
[2019-07-13] MEDS ORDERED: ACETAMINOPHEN 325 MG TAB PO STA (09:04)
[2019-07-13] MEDS: INSULIN REGULAR, HUMAN 100 UNIT/1 ML 3ML VIAL SQ SCH ×4 (09:09→21:30)
[2019-07-13] MEDS ORDERED: SODIUM CHLORIDE 0.9% 250ML 250 ML IV NR (09:15)
[2019-07-13] MEDS ORDERED: DEXAMETHASONE SOD PHOS 10 MG/1 ML VIAL IV ONE (09:15)
[2019-07-13] MEDS ORDERED: FUROSEMIDE INJ 10 MG/ML 2 ML VIAL IV NR (09:15)
[2019-07-13] MEDS: SODIUM CHLORIDE 0.9% 1000ML 1,000 ML IV SCH ×3 (10:31→23:56)
--- NOTE | 2019-07-13 12:32 | NUR ---
SPOKE WITH PT ABOUT SNF ORDER, GAVE ALL IN NETWORK SHE CHOSE [facility], SINGED CHOICE FILE DIN CHART AND WILL FAX CLINICALS.
--- NOTE | 2019-07-13 12:45 | NUR ---
Levophed turned off
--- NOTE | 2019-07-13 13:06 | NUR ---
FAXED CLINICALS TO [phone] PHONE IS [phone], [facility]
[2019-07-13] MEDS: VANCOMYCIN HCL 1.25 GM in SODIUM CHLORIDE 0.9% 250ML 250 ML IV SCH ×2 (13:38→23:52)
--- NOTE | 2019-07-13 14:45 | NUR ---
COMPLETED RTF AND PASRR, FILED IN CHART PACKET AND FAXED TO FACILITY, WILL PUT WITH PACKET AT NURSES STATION TO WAITING ON AUTH FOR ROOM AND DOCTOR ASSIGNMENT AT [facility]
--- NOTE | 2019-07-13 15:03 | Diagnostic Imaging Report ---
EXAM: CT left foot with Contrast. CT right foot with contrast. INDICATION: Osteomyelitis. Foot pain. Decreased range of motion. Cellulitis. Wound. COMPARISON: 07/11/2019 TECHNIQUE: Left and right foot was scanned utilizing a multidetector helical scanner after administration of IV contrast. Coronal and sagittal reformations were obtained. Routine protocol was performed. IV CONTRAST: 100 cc Isovue-370 ORAL CONTRAST: None COMPLICATIONS: None RADIATION DOSE: Total DLP: 174 mGy*cm Estimated effective dose: (DLP x 0.015 x size factor) mSv CTDIvol has been reviewed. It is below the limits set by the Radiation Protocol Committee (RPC). Dose modulation, iterative reconstruction, and/or weight based adjustment of the mA/kV was utilized to reduce the radiation dose to as low as reasonably achievable. FINDINGS: Left foot: Abnormal skin thickening with large skin defect/ulceration at the plantar medial aspect of the foot at the level of the navicular bone. There is underlying cortical destruction and fragmentation of the navicular bone with several small adjacent air foci. There is an associated 2.8 x 2.0 x 2.0 cm peripherally enhancing fluid collection along the dorsal aspect of the foot at the level of the cuneiform bones and a similar appearing 2.0 x 2.0 x 2.0 cm peripherally enhancing fluid collection along the medial aspect of the foot adjacent to the plantar aspect of the navicular bone. These are consistent with abscesses. These contain several small foci of air. The navicular bone is subluxed in a plantar direction with respect to the adjacent cuneiform bone. Posterior lateral talar dome osteochondral lesion best seen on axial image 52 and sagittal image 36 through 38. No free fragmentation is seen. Comminuted slightly displaced subacute appearing distal fibular fracture best seen on sagittal image 27 through 33. Scattered degenerative change about the remaining visualized osseous structures. Small inferior calcaneal bone spur. Right foot: No acute fracture, dislocation or evidence of avascular necrosis about the right foot. Scattered degenerative changes are seen. No talar dome osteochondral lesion is seen in the right foot/ankle. Metallic surgical hardware in the distal fibula appears to be intact. Abnormal skin thickening with skin ulceration at the level of the distal first metatarsal and adjacent fifth toe. There is underlying cortical destruction and fragmentation involving the distal fifth metatarsal. There is an associated 1.0 cm peripherally enhancing fluid collection along the dorsal aspect of the first metatarsophalangeal joint consistent with an abscess. Impression: Findings consistent with cellulitis, skin ulceration, abscesses and osteomyelitis involving the left and right foot as described above. Comminuted slightly displaced subacute appearing distal left fibular fracture Posterior lateral left talar dome osteochondral lesion. No free fragmentation is seen Signed by: Dr. Raffy Thomson M.D. on 07/13/2019 3:00 PM
--- NOTE | 2019-07-13 15:06 | Progress Note ---
DATE: 07/13/2019 SUBJECTIVE: The patient is seen at bedside, doing somewhat better. Denies any history of fever, chills, nausea, or vomiting. OBJECTIVE: VITAL SIGNS: Afebrile, pulse rate 73, respirations 12, blood pressure 101/57, and O2 saturation 100%. EXTREMITIES: Ulcerations to both lower extremities shows some necrosis noted down the bone to the left lower extremity and down to subcutaneous tissue right. Heel ulcer is approximately 5 to 6 cm in diameter left foot and 2.5 cm to the right lower extremity. Pedal pulses palpable, but diminished and foul smell present. LABORATORY DATA: Labs noted. White blood cell dropping from 22 to 15.6, hemoglobin is low at 6.8. ASSESSMENT: Grade 4 ulcer, left foot with possible osteo with a grade 2 ulcer right. PLAN: Sharp excisional debridement of the ulcers was carried down to muscle and close to bone to the left lower extremity and down the subcutaneous tissue to the right. Devitalized tissue sharply excised via the use of a sterile 10 blade until good viable bleeding tissue was achieved. Sterile dressing was applied following the debridement. The ulceration measured approximately 7 to 8 cm left lower extremity and 3 cm to the right. Sterile dressing was applied with SilvaSorb, followed by diluted wet-to-dry Betadine. We will continue that type of local wound care. Continue IV antibiotics. We will continue to treat conservatively for now. Down the road, the patient may need an amputation if not responsive. BROOKLYN Gambino/SAMUELL /[id number]
--- NOTE | 2019-07-13 16:30 | NUR ---
63 YO Female diabetic Pt of Dr Mason Bilateral feet wounds debrided by this AM Drsng dry and intact to Rt and Lft feet will follow up tomorrow for wound assessment upon removal of surgical Drsng Full skin assessment complete no other skin alterations noted allevyn foam to sacrococcyx area skin under dressing intact pink and blanchable Recommendations as follows Continue to turn and offload Pt with heel protectors and pillow suspension of bilateral heels while in bed Continue alternating pressure mattress Nursing continue to monitor new surgical dressings to bilateral feet continue treatment per Dr Mason post surgical orders Addendum: 07/13/19 at 1645 by Robert Salcido RN Amended: Links added.
[2019-07-13] MEDS ORDERED: DEXAMETHASONE SOD PHOS 10 MG/1 ML VIAL ONE (17:09)
[2019-07-13] MEDS ORDERED: SODIUM CHLORIDE 0.9% 250ML 250 ML ONE (17:09)
[2019-07-13] MEDS ORDERED: IOPAMIDOL 370 MG/ML 200 ML INFUS..BTL INJ ONE (19:11)
[2019-07-13] MEDS ORDERED: SODIUM CHLORIDE 0.9% 50ML 50 ML ONE (19:11)
[2019-07-13] MEDS: NOREPINEPHRINE INJ 4MG/4ML 8 MG in DEXTROSE 5% 250ML 242 ML IV SCH (23:45)
[2019-07-14] VITALS (16 sets, daily range): BP systolic 109–143; BP diastolic 33–89
[2019-07-14] MEDS: HYDROCODONE/APAP 10MG-325MG TAB PO PRN ×4 (01:43→22:31)
[2019-07-14 05:26] LABS: BASOPHILS % 0.2 % (0.0-1.0); HEMATOCRIT 27.9 % (34.2-44.1); HEMOGLOBIN 8.5 g/dL (12.0-16.0); LYMPHOCYTES # (AUTO) 1.6 (1.0-3.2); LYMPHOCYTES % 11.1 % (18.0-39.1); MEAN CORPUSCULAR HEMOGLOBIN 24.3 pg (28-32); MEAN CORPUSCULAR HGB CONC 30.5 g/dL (31-35); MEAN CORPUSCULAR VOLUME 79.7 fL (81-99); MONOCYTES # (AUTO) 0.4 (0.2-0.8); NEUTROPHILS # (AUTO) 11.4 (2.1-6.9); NEUTROPHILS % 80.2 % (38.7-80.0); PLATELET COUNT 411 x10e3/uL (140-360); RED CELL DISTRIBUTION WIDTH 16.4 % (11.7-14.4)
[2019-07-14 05:46] LABS: ANION GAP 11.9 mmol/L (8-16); BLOOD UREA NITROGEN 23 mg/dL (7-26); BUN/CREATININE RATIO 28 (6-25); CALCIUM 8.9 mg/dL (8.4-10.2); CARBON DIOXIDE 22 mmol/L (22-29); CHLORIDE 98 mmol/L (98-107); CREATININE, SERUM 0.83 mg/dL (0.57-1.11); EST GLOMERULAR FILTRATION RATE > 60 ML/MIN (60-); GLUCOSE 269 mg/dL (74-118); POTASSIUM 4.9 mmol/L (3.5-5.1); SODIUM 127 mmol/L (136-145)
[2019-07-14] MEDS: GABAPENTIN 100 MG CAP PO SCH ×3 (05:52→21:10)
[2019-07-14] MEDS: SODIUM CHLORIDE 0.9% 1000ML 1,000 ML IV SCH (07:36)
[2019-07-14] MEDS: INSULIN REGULAR, HUMAN 100 UNIT/1 ML 3ML VIAL SQ SCH ×4 (07:46→21:00)
[2019-07-14] MEDS ORDERED: GLIPIZIDE 5 MG TAB PO SCH (09:00)
[2019-07-14] MEDS: METFORMIN HCL 500 MG TAB CR PO SCH ×2 (09:00→16:09)
[2019-07-14] MEDS ORDERED: BENZONATATE 100 MG CAP PO PRN (09:00)
[2019-07-14] MEDS: ASPIRIN 81 MG CHEW TAB PO SCH (09:28)
[2019-07-14] MEDS: INSULIN GLARGINE 100 UNITS/ML VIAL SQ SCH ×2 (09:29→21:00)
[2019-07-14] MEDS: BACITRACIN ZINC 15 GM OINT TOP SCH ×2 (09:32→16:09)
[2019-07-14 10:30] LABS: BAND NEUTROPHILS % (MANUAL) 4 %; LYMPHOCYTES % (MANUAL) 7 % (19-48); MONOCYTES % (MANUAL) 8 % (3.4-9.0); NEUTROPHILS % (MANUAL) 77 % (40-74); PLATELET MORPHOLOGY COMMENT NORMAL; RBC MORPHOLOGY COMMENT NORMAL
[2019-07-14 10:31] LABS: PLATELET ESTIMATE SLIGHTLY INCREASED
[2019-07-14] MEDS: MEROPENEM 1GM 100 ML IV SCH ×2 (11:30→17:52)
--- NOTE | 2019-07-14 13:07 | Progress Note ---
DATE: 07/14/2019 SUBJECTIVE: The patient at bedside, doing better. Denying any history of fever, chills, nausea, or vomiting. OBJECTIVE: VITAL SIGNS: Afebrile, pulse rate 75, respirations 18, blood pressure 111/58, and O2 saturation 100%. EXTREMITIES: Ulcerations to both lower extremities, healing slowly down to muscle and bone, left lower extremity with some foul smell present, more than 5 to 6 cm in diameter with ulceration to the subcutaneous tissue, sub 1st metatarsal head measuring 2.5 to 3 cm diameter down to subcutaneous tissue with no tendon or bone exposed. Pedal pulses palpable, but diminished. CFT to all toes less than 4 seconds. Skin temperature is warm to touch. LABORATORY DATA: Labs noted. White blood cell dropping from a peak of 22.3 to 14.2 on this date, hemoglobin is 8.5 with a platelet count of 411, has a blood glucose of 241. ASSESSMENT: Osteomyelitis, left foot with a grade 4 ulceration, grade 2 ulcer right diabetic neuropathy with cellulitis. PLAN: Continue IV antibiotics with vancomycin. Continue local wound care with SilvaSorb followed by diluted wet-to-dry. Continue offloading. We will continue to follow and treat conservatively for now. BROOKLYN Gambino/JOSS /[id number]
--- NOTE | 2019-07-14 14:37 | NUR ---
WOUND CARE NURSE CONSULTATION. 63 YEAR OLD FEMALE ADMITTED TO [facility] WITH DX OF LEFT FOOT CELLULITIS, HYPOTENSION, AND LEUKOCYTOSIS. HEAD TO TOE SKIN ASSESSMENT PERFORMED TODAY. BILATERAL FOOT ULCERS S/P [address] ANSARI. LEFT MEDIAL FOOT ULCER MEASURES APPROXIMATELY 6X6X1.5CM. NO TENDON OR BONE ARE VISIBLE. 90% GRANULAR; 10% FIBROTIC. RIGHT 1ST METATARSAL HEAD MEASURES 2X1.5X0.3CM MOSTLY GRANULAR. THERE ARE NO OTHER AREAS OF CONCERN NOTED AT THIS TIME. NO S/S OF INFECTION. WEAK PALPABLE DP AND PT PULSES. LABS: WBC: 14.20 ALB: 1.[address] -Findings consistent with cellulitis, skin ulceration, abscesses and osteomyelitis involving the left and right foot. Comminuted slightly displaced subacute appearing distal left fibular fracture Posterior lateral left talar dome osteochondral lesion. No free fragmentation is seen. ORDERS IN CHART BY DR. ANSARI TO APPLY SILVASORB GEL TO BILATERAL FOOT ULCERS FOLLOWED BY BETADINE DILUTED WET TO DRY DRESSING DAILY. OFFLOADING AND IV ABX. Addendum: 07/14/19 at 1452 by Nataliia Villareal RN Amended: Links added.
[2019-07-14] MEDS: GLIPIZIDE 5 MG TAB PO SCH (16:09)
[2019-07-14] MEDS: ATORVASTATIN 10 MG TAB PO SCH (21:10)
--- NOTE | 2019-07-14 21:23 | NUR ---
Report called to Rosemarie RN, patient transferring to room 292
--- NOTE | 2019-07-14 22:00 | NUR ---
PT IS A TRANSFER FROM ICU TO MED-SURG 3. PT IS RESTING IN BED. RESPIRATION IS EVEN AND UNLABORED, NO DISTRESS NOTED. BED IN THE LOWEST POSITION, LOCKED, AND CALL LIGHT WITHIN REACH. WILL CONTINUE TO MONITOR.
[2019-07-15] VITALS (7 sets, daily range): BP systolic 109–129; BP diastolic 57–70
[2019-07-15] MEDS ORDERED: SODIUM CHLORIDE 0.9% 250ML 250 ML ONE (02:14)
[2019-07-15] MEDS: MEROPENEM 1GM 100 ML IV SCH ×3 (02:20→17:09)
[2019-07-15] MEDS: GABAPENTIN 100 MG CAP PO SCH ×3 (06:03→22:00)
[2019-07-15] MEDS: INSULIN REGULAR, HUMAN 100 UNIT/1 ML 3ML VIAL SQ SCH ×4 (07:30→20:24)
--- NOTE | 2019-07-15 07:30 | NUR ---
PATIENT IS AWAKE AND IN STABLE CONDITION WITH NO S/S OF RESPIRATORY DISTRESS- PATIENT IS [place] AND STATES SHE IS DEAF. PATIENT C/O BILATERAL FEET PAIN 05/17. TELEMETRY APPLIED. AJ INTACT AND DRAINING- URINE IS PALE AND CLEAR. CALL LIGHT IS WITHIN REACH, PATIENT INSTRUCTED TO CALL FOR ASSISTANCE INSTRUCTED.
[2019-07-15] MEDS: METFORMIN HCL 500 MG TAB CR PO SCH ×2 (08:30→16:31)
[2019-07-15] MEDS: ASPIRIN 81 MG CHEW TAB PO SCH (08:30)
[2019-07-15] MEDS: GLIPIZIDE 5 MG TAB PO SCH ×2 (08:30→16:31)
[2019-07-15] MEDS: HYDROCODONE/APAP 10MG-325MG TAB PO PRN ×2 (08:30→18:23)
[2019-07-15] MEDS: BACITRACIN ZINC 15 GM OINT TOP SCH ×2 (08:33→16:29)
[2019-07-15] MEDS: INSULIN GLARGINE 100 UNITS/ML VIAL SQ SCH ×2 (08:33→20:25)
--- NOTE | 2019-07-15 13:37 | NUR ---
WOUND DRESSING APPLIED INSTRUCTED BY DR. ANSARI (SILVASORB WITH WET TO DRY BETADINE DRESSING). DRESSINGS ARE CLEAN, INTACT AND DRY TO BILATERAL FEET. HEEL PROTECTORS APPLIED. PATIENT HAD A BM PRIOR TO WOUND DRESSING;PERICARE PROVIDED.
--- NOTE | 2019-07-15 15:58 | Progress Note ---
DATE: 07/15/2019 SUBJECTIVE: The patient at bedside, doing better, is denying history of fever, chills, nausea, or vomiting, in better spirits. OBJECTIVE: VITAL SIGNS: She has a temperature of 99, pulse rate 85, respirations 20, blood pressure 128/70, O2 saturation 97%. EXTREMITIES: Ulcerations to both lower extremities, improving. Granular fibrotic base noted to both lower extremities, tracking down the subcutaneous tissue, right and down to bone and muscle left. Measuring 2.5 to 3 cm in diameter, right foot. More than 5-6 cm in diameter to the left lower extremity, tracking to bone, bone felt through the ulceration. Pedal pulses are palpable. LABORATORY DATA: Show a white blood cell count of 14.2. ASSESSMENT: Osteomyelitis of the left foot with a grade 4 ulcer, grade 2 ulcer, right with peripheral neuropathy, cellulitis, and diabetes. PLAN: We will continue IV antibiotics such as meropenem. Continue local wound care with SilvaSorb followed by diluted wet-to-dry. We will continue to follow. BROOKLYN Gambino/JOSS /[id number]
--- NOTE | 2019-07-15 17:33 | Progress Note ---
DATE: SUBJECTIVE: Ms. Mckeon was lying in bed comfortably, no complaints, out of ICU. REVIEW OF SYSTEMS: Unremarkable. PHYSICAL EXAMINATION: GENERAL: The patient is currently alert, comfortable. VITAL SIGNS: Stable, afebrile. HEENT: She is not icterus. NECK: Supple. CHEST: Clear. ABDOMEN: Obese. EXTREMITIES: No edema. IMPRESSION: 1. Staphylococcal sepsis, bacteremia present on admission. Repeat cultures are negative. Obesity. 2. Osteomyelitis of left foot, grade 4. 3. Chronic kidney disease, diabetes mellitus, neuropathy. Continue with meropenem. We will change to Ancef in a couple days. Plan is 8 weeks of IV antibiotic. Weekly CBC. We will get a Chem panel. We will follow. MD DICK Win/JOSS /[id number]
--- NOTE | 2019-07-15 18:54 | NUR ---
PATIENT IS IN STABLE CONDITION WITH NO S/S OF RESPIRATORY DISTRESS. PAIN MEDICATION RECENTLY GIVEN TO PATIENT FOR BILATERAL FEET PAIN 07/18. TELEMETRY APPLIED. AJ INTACT AND DRAINING. CALL LIGHT IS WITHIN REACH, PATIENT INSTRUCTED TO CALL FOR ASSISTANCE INSTRUCTED. REPORT GIVEN TO ONCOMING NURSE.
--- NOTE | 2019-07-15 19:00 | NUR ---
patient received awake, alert but very little shell tribe. no c/o pain noted. pm assessment complete. call ware placed within reach. patient instructed to call for assistance when needed.
[2019-07-15] MEDS: ATORVASTATIN 10 MG TAB PO SCH (20:24)
[2019-07-16] VITALS (9 sets, daily range): BP systolic 105–169; BP diastolic 56–78
--- NOTE | 2019-07-16 | NUR ---
patient appears to be resting quietly. no c/o pain noted at this time.
[2019-07-16] MEDS: MEROPENEM 1GM 100 ML IV SCH ×3 (02:00→17:42)
--- NOTE | 2019-07-16 04:48 | NUR ---
am labs drawn from right upper arm picc line at this time without difficulty.
[2019-07-16] MEDS: GABAPENTIN 100 MG CAP PO SCH ×3 (05:25→22:00)
[2019-07-16] MEDS: HYDROCODONE/APAP 10MG-325MG TAB PO PRN (05:25)
--- NOTE | 2019-07-16 05:25 | NUR ---
patient medicated with norco 10/325mg po for c/o bilateral feet pain 04/17 at this time per patients request.
[2019-07-16 06:12] LABS: BASOPHILS # (AUTO) 0.1 (0.0-0.1); BASOPHILS % 0.6 % (0.0-1.0); EOSINOPHILS # (AUTO) 0.3 (0.0-0.4); EOSINOPHILS % 1.9 % (0.0-6.0); HEMATOCRIT 28.5 % (34.2-44.1); HEMOGLOBIN 8.8 g/dL (12.0-16.0); LYMPHOCYTES # (AUTO) 2.8 (1.0-3.2); LYMPHOCYTES % 16.9 % (18.0-39.1); MEAN CORPUSCULAR HEMOGLOBIN 24.5 pg (28-32); MEAN CORPUSCULAR HGB CONC 30.9 g/dL (31-35); MEAN CORPUSCULAR VOLUME 79.4 fL (81-99); MONOCYTES # (AUTO) 0.9 (0.2-0.8); MONOCYTES % 5.3 % (4.4-11.3); NEUTROPHILS % 66.4 % (38.7-80.0); PLATELET COUNT 500 x10e3/uL (140-360); RED BLOOD COUNT 3.59 x10e6/uL (3.6-5.1); RED CELL DISTRIBUTION WIDTH 17.6 % (11.7-14.4)
[2019-07-16 06:30] LABS: ANION GAP 14.1 mmol/L (8-16); BLOOD UREA NITROGEN 14 mg/dL (7-26); BUN/CREATININE RATIO 21 (6-25); CALCIUM 8.7 mg/dL (8.4-10.2); CARBON DIOXIDE 27 mmol/L (22-29); CHLORIDE 99 mmol/L (98-107); CREATININE, SERUM 0.67 mg/dL (0.57-1.11); EST GLOMERULAR FILTRATION RATE > 60 ML/MIN (60-); GLUCOSE 107 mg/dL (74-118); POTASSIUM 4.1 mmol/L (3.5-5.1); SODIUM 136 mmol/L (136-145)
--- NOTE | 2019-07-16 07:25 | NUR ---
PATIENT IS IN STABLE CONDITION WITH NO S/S OF RESPIRATORY DISTRESS. NO PAIN VOICED. AJ INTACT AND DRAINING. TELEMETRY APPLIED. DRESSING TO BILATERAL FEET ARE DRY AND INTACT. CALL LIGHT IS WITHIN REACH, PATIENT INSTRUCTED TO CALL FOR ASSISTANCE INSTRUCTED.
[2019-07-16] MEDS: INSULIN REGULAR, HUMAN 100 UNIT/1 ML 3ML VIAL SQ SCH ×4 (07:30→20:31)
[2019-07-16] MEDS: GLIPIZIDE 5 MG TAB PO SCH ×2 (08:24→16:54)
[2019-07-16] MEDS: ASPIRIN 81 MG CHEW TAB PO SCH (08:24)
[2019-07-16] MEDS: METFORMIN HCL 500 MG TAB CR PO SCH ×2 (08:24→16:54)
[2019-07-16] MEDS: BACITRACIN ZINC 15 GM OINT TOP SCH ×2 (08:24→16:31)
[2019-07-16] MEDS: INSULIN GLARGINE 100 UNITS/ML VIAL SQ SCH ×2 (08:25→20:37)
[2019-07-16] MEDS ORDERED: FOLIC ACID 1 MG TAB PO NR (10:00)
--- NOTE | 2019-07-16 10:35 | NUR ---
WOUND CARE/DRESSING CHANGE COMPLETED TO BILATERAL FEET- DRESSINGS ARE DRY AND INTACT. PATIENT VOMITED AND WILL ADMINISTER ZOFRAN TO THE PATIENT.
[2019-07-16] MEDS: IRON SUCROSE 100 MG in SODIUM CHLORIDE 0.9% 100 ML 100 ML IV SCH (10:51)
[2019-07-16] MEDS: ONDANSETRON HCL INJ 2MG/ML 2ML 2 MG/ML VIAL IV PRN ×2 (10:51→15:30)
[2019-07-16] MEDS: ENOXAPARIN 30 MG/0.3 ML SYR SC SCH (16:58)
--- NOTE | 2019-07-16 18:57 | NUR ---
PATIENT IS SITTING UP IN THE CHAIR -IN STABLE CONDITION WITH NO S/S OF RESPIRATORY DISTRESS. NO PAIN VOICED. BILATERAL DRESSING IS DRY, CLEAN, AND INTACT- POST OP BOOTS APPLIED BILATERALLY TO FEET. TABLE IN FRONT OF PATIENT. CALL LIGHT IS WITHIN REACH OF PATIENT, PATIENT INSTRUCTED TO CALL FOR ASSISTANCE INSTRUCTED. REPORT GIVEN TO ONCOMING NURSE.
--- NOTE | 2019-07-16 19:00 | NUR ---
patient received awake, alert, lying quietly in bed. no c/o pain noted. bilateral feet dressings remain c,d,i. zabala draining clear yellow urine to bsd. pm assessment complete. patient instructed to call for assistance when needed.
[2019-07-16] MEDS: ATORVASTATIN 10 MG TAB PO SCH (20:37)
[2019-07-17] VITALS (7 sets, daily range): BP systolic 99–134; BP diastolic 52–72
--- NOTE | 2019-07-17 01:29 | Progress Note ---
DATE: 07/16/2019 SUBJECTIVE: The patient is at bedside, doing somewhat better. She is having some stomach ache. She is denying any history of fever, chills, nausea, or vomiting. OBJECTIVE: VITALS SIGNS: Afebrile, pulse rate 74, respirations 19, blood pressure 116/70, O2 saturation 98%. LABORATORY DATA: Labs noted as white blood cell count now went up to 15.5 with a hemoglobin of 8.8, platelet count of 500. Ulcerations to both lower extremities improving. Still some foul smell and tracking down to bone to the left foot ulceration with a Charcot foot deformity and grade 2 ulcer, right foot. ASSESSMENT: Grade 4 ulcer, possible osteomyelitis of left foot; grade 2 ulcer, right diabetic neuropathy with cellulitis. PLAN: Continue IV antibiotics such as meropenem. Continue local wound care with SilvaSorb followed by diluted wet-to-dry Betadine. We will continue to follow and treat conservatively for now. BROOKLYN Gambino/JOSS /[id number]
[2019-07-17] MEDS: MEROPENEM 1GM 100 ML IV SCH ×3 (01:43→17:14)
[2019-07-17 05:16] LABS: BASOPHILS # (AUTO) 0.1 (0.0-0.1); BASOPHILS % 0.5 % (0.0-1.0); EOSINOPHILS # (AUTO) 0.3 (0.0-0.4); HEMATOCRIT 28.3 % (34.2-44.1); LYMPHOCYTES # (AUTO) 3.1 (1.0-3.2); LYMPHOCYTES % 20.5 % (18.0-39.1); MEAN CORPUSCULAR HEMOGLOBIN 25.2 pg (28-32); MEAN CORPUSCULAR HGB CONC 31.8 g/dL (31-35); MEAN CORPUSCULAR VOLUME 79.3 fL (81-99); MONOCYTES # (AUTO) 0.9 (0.2-0.8); MONOCYTES % 6.2 % (4.4-11.3); NEUTROPHILS # (AUTO) 9.5 (2.1-6.9); NEUTROPHILS % 62.6 % (38.7-80.0); PLATELET COUNT 523 x10e3/uL (140-360); RED BLOOD COUNT 3.57 x10e6/uL (3.6-5.1); RED CELL DISTRIBUTION WIDTH 18.1 % (11.7-14.4)
[2019-07-17] MEDS: GABAPENTIN 100 MG CAP PO SCH ×3 (05:55→21:21)
--- NOTE | 2019-07-17 06:00 | NUR ---
patient appears to be resting quietly. patient easily awakened for scheduled am medication. patient denies pain at this time.
--- NOTE | 2019-07-17 07:00 | NUR ---
Rounds made and report given to Lencho BUCKLEY
[2019-07-17] MEDS: INSULIN REGULAR, HUMAN 100 UNIT/1 ML 3ML VIAL SQ SCH ×4 (07:30→20:41)
[2019-07-17 07:54] LABS: BAND NEUTROPHILS % (MANUAL) 3 %; EOSINOPHILS % (MANUAL) 5 % (0-7); LYMPHOCYTES % (MANUAL) 16 % (19-48); MONOCYTES % (MANUAL) 13 % (3.4-9.0); NEUTROPHILS % (MANUAL) 63 % (40-74); PLATELET MORPHOLOGY COMMENT NORMAL; POLYCHROMASIA FEW; RBC MORPHOLOGY COMMENT ABNORMAL
[2019-07-17 07:55] LABS: ANISOCYTOSIS SLIGHT; POIKILOCYTOSIS SLIGHT
[2019-07-17 07:56] LABS: LARGE PLATELETS FEW; PLATELET ESTIMATE MODERATELY INCREASED
[2019-07-17] MEDS: FOLIC ACID 1 MG TAB PO SCH (08:19)
[2019-07-17] MEDS: ASPIRIN 81 MG CHEW TAB PO SCH (08:19)
[2019-07-17] MEDS: METFORMIN HCL 500 MG TAB CR PO SCH ×2 (08:19→17:14)
[2019-07-17] MEDS: GLIPIZIDE 5 MG TAB PO SCH ×2 (08:19→17:14)
[2019-07-17] MEDS: INSULIN GLARGINE 100 UNITS/ML VIAL SQ SCH ×2 (08:20→20:42)
[2019-07-17] MEDS: IRON SUCROSE 100 MG in SODIUM CHLORIDE 0.9% 100 ML 100 ML IV SCH (09:25)
[2019-07-17] MEDS: BACITRACIN ZINC 15 GM OINT TOP SCH ×2 (09:25→17:14)
--- NOTE | 2019-07-17 12:01 | NUR ---
EDUCATED ABOUT IMM, SIGNED, FILED IN CHART, WITH COPY LEFT WITH FAMILY AT BEDSIDE.
--- NOTE | 2019-07-17 12:22 | NUR ---
FAXING UPDATES OF PT NOTES, MEDICATIONS AND PHYSICIAN NOTES TO FACILITY AT [phone]
--- NOTE | 2019-07-17 13:42 | Progress Note ---
DATE: 07/17/2019 SUBJECTIVE: The patient at bedside, doing somewhat better. Denying any history of fever, chills, nausea, or vomiting. OBJECTIVE: VITAL SIGNS: Afebrile, pulse rate 89, respirations 18, blood pressure 134/63, and O2 saturation 94%. EXTREMITIES: Ulcerations to both lower extremities, improving very slowly, tracking down to bone, left foot and down to subcutaneous tissue, right. Some granulation tissue noted. Decreased cellulitis. Decreased edema bilaterally with still some foul smell to the left lower extremity. The pedal pulses palpable to both the DP and PT. LABORATORY DATA: Labs noted. White blood cell count dropping now to 15.2, hemoglobin 9.0. ASSESSMENT: Charcot foot bilaterally, grade 2 ulcer right, grade 4 ulcer left with possible osteomyelitis. PLAN: We will continue IV antibiotics. Continue local wound care. Continue offloading. We will continue let the foot demarcate. The patient seems to be responding very slowly. BROOKLYN Gambino/JOSS /[id number]
[2019-07-17] MEDS: HYDROCODONE/APAP 10MG-325MG TAB PO PRN (15:13)
--- NOTE | 2019-07-17 16:30 | NUR ---
Wound care. Pt assessed as per consult. Pt previously seen by wound care. on 07/14/19 and 07/15/19. Wound care orders in place by Dr. Mason. No adverse changes noted at this time. Addendum: 07/17/19 at 1632 by Nataliia Villareal RN Amended: Links added.
--- NOTE | 2019-07-17 16:45 | NUR ---
DETENTION FACILITY DISCHARGE INFORMATION PATIENT HAS BEEN ACCEPTED TO: NAME: VANE MICHELE ADDRESS: [id number] [facility] [id number] ACCEPTING BREAST WORKER: GAYATRI ROBLERO ACCEPTING MD: REED ROOM: 305A NURSE CALL REPORT TO: IMM SIGNED AND OBTAINED (if applicable): THE FOLLOWING DOCUMENTS MUST ACCOMPANY PATIENT FOR TRANSFER: COPIED CHART: CLINICALS AND PASRR
[2019-07-17] MEDS: ENOXAPARIN 30 MG/0.3 ML SYR SC SCH (17:14)
--- NOTE | 2019-07-17 17:18 | NUR ---
patient up in bed, eating dinner, dressing intact on both feet , dressing changed.
--- NOTE | 2019-07-17 19:33 | NUR ---
Received change of shift report from AM nurse. Walking rounds completed.
[2019-07-17] MEDS: ATORVASTATIN 10 MG TAB PO SCH (20:40)
--- NOTE | 2019-07-17 22:00 | NUR ---
Report given to PM nurse.
[2019-07-18] VITALS: BP 144/62
[2019-07-18] MEDS: MEROPENEM 1GM 100 ML IV SCH ×2 (02:00→09:46)
[2019-07-18 04:00] VITALS: BP 147/65
[2019-07-18] MEDS: GABAPENTIN 100 MG CAP PO SCH (05:50)
--- NOTE | 2019-07-18 07:18 | NUR ---
PT RESTED DURING THE NIGHT AND DENIES PAIN .CALL LIGHT WITH IN REACH .BEDSIDE REPORT GIVEN TO THE ONCOMING NURSE
[2019-07-18] MEDS: INSULIN REGULAR, HUMAN 100 UNIT/1 ML 3ML VIAL SQ SCH ×2 (07:30→13:24)
[2019-07-18 08:00] VITALS: BP 121/58
[2019-07-18 08:16] VITALS: BP 121/58
[2019-07-18] MEDS: GLIPIZIDE 5 MG TAB PO SCH (09:35)
[2019-07-18] MEDS: FOLIC ACID 1 MG TAB PO SCH (09:36)
[2019-07-18] MEDS: ASPIRIN 81 MG CHEW TAB PO SCH (09:36)
[2019-07-18] MEDS: METFORMIN HCL 500 MG TAB CR PO SCH (09:36)
[2019-07-18] MEDS: BACITRACIN ZINC 15 GM OINT TOP SCH (09:37)
[2019-07-18] MEDS: INSULIN GLARGINE 100 UNITS/ML VIAL SQ SCH (09:37)
[2019-07-18] MEDS: IRON SUCROSE 100 MG in SODIUM CHLORIDE 0.9% 100 ML 100 ML IV SCH (10:00)
[2019-07-18 11:57] VITALS: BP 131/58
--- NOTE | 2019-07-18 13:30 | Progress Note ---
DATE: 07/18/2019 SUBJECTIVE: The patient at bedside, sleeping. No distress. OBJECTIVE: VITAL SIGNS: Afebrile, pulse rate 72, respirations 18, blood pressure 147/65, and O2 saturation 98%. EXTREMITIES: Ulcerations to both lower extremities improving. Granulation tissue noted down to subcutaneous tissue right and tracking down to bone left, measuring 2 to 2.5 cm in diameter right foot and more than 5 to 6 cm down to the left. Pedal pulses are palpable. There is a Charcot foot deformity. LABORATORY DATA: Labs show a white blood cell count of 15.2. ASSESSMENT: Grade 4 ulcer left foot, grade 2 ulcer right, responding to IV antibiotics and local wound care. PLAN: We will continue SilvaSorb gel to the affected area, followed by diluted wet-to-dry Betadine. Continue IV meropenem. Continue offloading. We will continue to follow. BROOKLYN Gambino/JOSS /[id number]
== END 2019-07-18 15:24 | DRG 853 ==
LOC: ER 19:44 → ERHOLD 23:41 → ICU 07-12 00:48 → MED/SURG3 07-14 22:07
PROVIDERS: ADMIT Internal Medicine; ATTEND Internal Medicine
PROC: 02HV33Z Insertion of Infusion Device into Superior Vena Cava, Percutaneous Approach (ICD-10-PCS; principal; 2019-07-12)
PROC: 0KBW0ZZ Excision of Left Foot Muscle, Open Approach (ICD-10-PCS; 2019-07-13)
PROC: 30243N1 Transfusion of Nonautologous Red Blood Cells into Central Vein, Percutaneous Approach (ICD-10-PCS; 2019-07-13)
DX: A41.2 Sepsis due to unspecified staphylococcus (principal); R65.21 Severe sepsis with septic shock; E11.22 Type 2 diabetes mellitus with diabetic chronic kidney disease; I12.9 Hypertensive chronic kidney disease with stage 1 through stage 4 chronic kidney disease, or unspecified chronic kidney disease; N18.9 Chronic kidney disease, unspecified; Z79.4 Long term (current) use of insulin; E11.621 Type 2 diabetes mellitus with foot ulcer; L97.524 Non-pressure chronic ulcer of other part of left foot with necrosis of bone; L97.519 Non-pressure chronic ulcer of other part of right foot with unspecified severity; E11.40 Type 2 diabetes mellitus with diabetic neuropathy, unspecified; E11.610 Type 2 diabetes mellitus with diabetic neuropathic arthropathy; E78.5 Hyperlipidemia, unspecified; Z90.710 Acquired absence of both cervix and uterus
CPT/HCPCS: 36415; 36555; 36569; 51700; 71045; 74176; 80048; 80053; 80202; 81001; 82270; 82533; 82550; 82553; 82607; 82746; 82948; 83036; 83540; 83605; 83735; 83880; 84100; 84443; 84466; 84484; 85025; 85610; 85651; 85730; 86140; 86850; 86900; 86920; 87040; 87071; 87086; 87186; 87205; 93005; 93306; 96372; 96374; 97139; 99285; J1100; J1650; J1756; J1815; J1817; J2270; J2405; J2543; J3370; J7030; J7050; P9016; Q9967

== ENCOUNTER 2020-06-25 15:50 | Inpatient (IN) | payer MEDICARE, OTHER ==
--- NOTE | 2020-06-25 14:33 | NUR ---
RECEIVED A DIRECT ADMISSION FROM THE [facility]. PATIENT SENT FROM [facility]. PATIENT ARRIVED TO THE UNIT @ 1433. PATIENT IN STABLE CONDITION, NO S/S OF DISTRESS NOTED. TELEMETRY APPLIED- PACEMAKER NOTED. EDEMA NOTED TO THE LOWER EXTREMITIES +3 AND ABDOMEN DISTENDED, PATIENTS STATED THAT SHE IS RETAINING FLUID. RESPIRATIONS EVEN AND NONLABORED ALL LUNG TOVAR ARE CLEAR. PATIENT ON ROOM AIR O2 STAT @ 95%. WOUNDS NOTED TO BILATERAL FEET- PATENT STATED THAT THEY ARE FROM [place] MONTHS AGO. BED IN LOWEST POSITION AND LOCKED, SIDE RAILS X 2. CALL LIGHT WITHIN REACH.
[~2020-06-25 15:50] MED LIST changes: +ATORVASTATIN CA10 MG PO; +BENZONATATE100 MG PO; +LEVEMIR100 UNIT/1 SQ
--- OUTSIDE RECORDS SUMMARY | 2020-06-25 15:54 | XMS REPORT | CCD ---
Author Author Auto KORINA Wolfe Organization [facility] Outpatient Imaging - [place] Address Unknown Phone Unavailable Care Team Providers Care Census Enumerator Name Role Phone Nelson Godoyisac CP Allergies, Adverse Reactions, Alerts Substance Reaction Status NKDA Active Problem List Condition Effective Dates Status Cholecystectomy Active DM - Diabetes mellitus Active HTN - Hypertension Active Hyperlipidemia Active Hysterectomy Active OM - Osteomyelitis Active
--- OUTSIDE RECORDS SUMMARY | 2020-06-25 15:54 | XMS REPORT | Summary of Care ---
Author Organization Unknown Address Unknown Phone Unavailable Encounter HQ Encntr_alexi(FIN) [id number] Date(s): 01/14/15 - 01/14/15 [facility] Outpatient Imaging - [address] [address]- [facility] [phone] Discharge Disposition: Home Physician Attending: Nelson Godoy MD Vital Signs No data available for this section Problem List Condition Effective Dates Status Health Status Informan t Cholecystectomy(Conf Active irmed) DM - Diabetes Active mellitus(Confirmed) HTN - Active Hypertension(Confirm ed) Hyperlipidemia(Confi Active rmed) Hysterectomy(Confirm Active ed) OM - Active Osteomyelitis(Confir med) Allergies, Adverse Reactions, Alerts Substance Reaction Severity Status NKDA Active Medications No data available for this section Results No data available for this section Immunizations No data available for this section Procedures No data available for this section Social History No data available for this section Assessment and Plan No data available for this section
--- OUTSIDE RECORDS SUMMARY | 2020-06-25 15:54 | XMS REPORT | CCD ---
Author Author Auto Generated, KORINA Marroquin Organization [facility] Outpatient Imaging - [place] Address Unknown Phone Unavailable Care Team Providers Care Bottom Bleacher Name Role Phone Nelson Godoy Torrey CP Allergies, Adverse Reactions, Alerts Substance Reaction Status NKDA Active Problem List Condition Effective Dates Status Cholecystectomy Active DM - Diabetes mellitus Active HTN - Hypertension Active Hyperlipidemia Active Hysterectomy Active OM - Osteomyelitis Active
--- OUTSIDE RECORDS SUMMARY | 2020-06-25 15:54 | XMS REPORT | Continuity of Care Document ---
Author Author [facility] t Organization [facility] Address [address] [place] [address] Phone Unavailable Care Team Providers Care Line Department Supervisor Name Role Phone LAZ OLMSTEAD MD PCP Yvonne Chu Attphys MACARIO MULLER Attphys Unavailable LAZ OLMSTEAD Attphys Unavailable Torrey Godoy Attphys MACARIO MULLER Admphys Unavailable Payers Payer Name Policy Type Policy Number Effective Date Expiration Date Otto Jaarmillo [id number] 2018 00:00:00 [facility] Problems Condition Name Condition Details Condition Category Status Onset Date Resolution Date Last Treatment Date Treating Clinician Comments Source ULCER MASS ON LEFT FOOT ULCE R MASS ON LEFT FOOT Active 03/14/2020 [facility] Diagnosis Active 2020-03-14 00:00:00 2020-04-18 09:08:00 [facility] Diverticulitis of intestine Diverticulitis Problem Active 2015-06 00:00:00 [facility] Sepsis Sepsis Problem Active 2015-06-09 00:00:00 [facility] Sepsis with hypotension Sepsis associated hypotension Problem Active 2015-06-09 00:00:00 [facility] 443.9 - PERIPH VASCULAR 443. 9 - PERIPH VASCULAR Active 01/09/2015 KASSY Gilesa Diagnosis Active 2015-01-09 00:01:00 2015-02-26 13:34:00 [facility] BONE INFECTION ON TOES BONE INFECTION ON TOES Active 03/18/2012 [facility] Active 2012-03-18 00:00:00 2012-03-18 19:06:00 [facility] OSTEOMYELITIS LEFT 2ND TOE OST EOMYELITIS LEFT 2ND TOE Active 03/18/2012 [facility] Diagnosis Active 2012-03-18 00:00:00 2012-04-01 21:47:00 [facility] Femoral hernia (disorder) Femo ral hernia (disorder) Active 11/21/2008 Problem 04/26/2020 Data migrated from [employer] on 04/09/15.Data migrated from [employer] on 04/09/15. [facility] Problem A ctive 2008-11-21 00:00:00 2020-04-26 22:57:47 vincent Gao Cellulitis of left foot Cellulitis of left foot Problem Active [facility] Diabetic ulcer of left foot Diabetic ulcer of left foot Problem Active [facility] Complete atrioventricular block Third degree AV block Problem Active [facility] Hypotension Hypotension Problem Active [facility] Leukocytosis Leukocytosis Problem Active [facility] Osteomyelitis of left foot Osteomyelitis of left foot Problem Active [facility] Cholecystectomy Chol ecystectomy Active Problem 06/03/2013 KASSY [place] Problem Active 20-05-27 20:47:43 [facility] DM - Diabetes mellitus DM - Diabetes mellitus Active Problem 06/03[facility]2013 [facility] Active 2013-06-03 20:47:43 [facility] HTN - Hypertension HTN - Hypertension Active Problem 06/03/2013 [facility] [place] Problem Active 2013-06-03 20:47:43 [facility] Hyperlipidemia Hype rlipidemia Active Problem 06/03/2013 OPIKrystina Grier [facility] Problem Active 20-05-27 20:47:43 [facility] Hysterectomy Hyst erectomy Active Problem 06/03/2013 KASSY [place], [place] Problem Active 2013-06-03 20:47:4 3 [facility] OM - Osteomyelitis OM - Osteomyelitis Active Problem 06/03/2013 KASSY Grier [facility] Problem Active 20-05-27 20:47:43 [facility] HTN - Hypertension HTN - Hypertension Active Problem 03/26/2012 [facility] Problem Active 2012-03-26 08:45:49 [facility] Cholecystectomy (procedure) Ch olecystectomy (procedure) Active Problem 04/26/2020 [facility] Problem Active 2020-04-26 22:57:47 Memor tanesha Gao Diabetes mellitus (disorder) D iabetes mellitus (disorder) Active Problem 04/26/2020 [facility] Problem Active 2020-04-26 22:57:47 [facility] Generalized abdominal pain (finding) Generalized abdominal pain (finding) Active Problem 04/26/2020 Data migrated from [employer]enicity on 04/09/15.Data migrated from [employer]enicity on 04/09/15. [facility] Problem Active 2020-04-26 22:57:47 [facility] Headache (finding) Head ache (finding) Active Problem 04/26/2020 Data migrated from [employer]enicity on 04/09/15.Data migrated from [employer]enicity on 04/09/15. [facility] Problem Active 2020-04-26 22:57:47 [facility] Hypertensive disorder, systemic arterial (disorder) Hypertensive disorder, systemic arterial (disorder) Active Problem 04/26/2020 [facility] Problem Active 2020-04-26 22:57:47 [facility] Hyperlipidemia (disorder) Hype rlipidemia (disorder) Active Problem 04/26/2020 [facility] Problem Active 2020-04-26 22:57:47 [facility] Hysterectomy (procedure) Hyst erectomy (procedure) Active Problem 04/26/2020 [facility] Problem Active 2020-04-26 22:57:47 [facility] Osteomyelitis (disorder) Oste omyelitis (disorder) Active Problem 04/26/2020 [facility] Problem Active 2020-04-26 22:57:47 [facility] Vaginal enterocele (disorder) Vaginal enterocele (disorder) Active Problem 04/26/2020 Data m igrated from [employer] on 04/09/15.Data migrated from [employer]enicity on 04/09/15. [facility] Problem Active 2020-04-26 22:57:47 Fiorella Gao AC OSTEOMYELITIS-UNSPEC AC O STEOMYELITIS-UNSPEC Active [facility] Diagnosis Active 2012-04-01 21:47:00 [facility] Allergies, Adverse Reactions, Alerts Allergy Name Allergy Type Status Severity Reaction(s) Onset Date Inacti ve Date Treating Clinician Comments Source Latex Allergy to Substance Active RASH 2018-10-18 00:00:00 [facility] No Known Drug Intolerances DA Active U 2009-05-03 00:00:0 0 [facility] LATEX DA Active ID 2009-05-03 00:00:00 [facility] No Known Contrast Allergies DA Active U 2009-05-03 00:00: 00 [facility] No Known Drug Allergies DA Active U 2009-05-03 00:00:00 [facility] No Known Food Allergies DA Active U 2009-05-03 00:00:00 [facility] TAPE DA Active ID 2009-05-03 00:00:00 [facility] No Known Medication Allergies No Known Medication Allergies Active [facility] Social History Social Habit Start Date Stop Date Quantity Comments Source Social History 2015-01-26 04:59:00 2015-01-26 04:59:00 [facility] Medications Ordered Medication Name Filled Medication Name Start Date Stop Da te Current Medication? Ordering Clinician Indication Dosage Frequency Signature (SIG) Comments Components Source Ciprofloxacin Hcl (Cipro) 500 Mg Tablet, 250 Mg Oral C iprofloxacin Hcl (Cipro) 500 Mg Tablet, 250 Mg Oral 2015-06-16 00:00:00 2018-10-18 00:00:00 Delphine Hinojosa Md 250 Every 12 Hours [facility] Clindamycin Hcl 300 Mg Capsule, 300 Mg Oral Clindamyci n Hcl 300 Mg Capsule, 300 Mg Oral 2015-06-16 00:00:00 2018-10-18 00:00:00 Delphine Hinojosa Md 3 00 Every 8 Hours [facility] Gabapentin 300 Mg Cap, 600 Mg Oral Gabapentin 300 Mg Cap, 60 0 Mg Oral 2015-06-16 00:00:00 2018-10-18 00:00:00 Delphine Hinojosa Md 600 Bedtime [facility] Pantoprazole Sod (Protonix) 40 Mg/Ml Susp, 40 Mg Oral Pantoprazole Sod (Protonix) 40 Mg/Ml Susp, 40 Mg Oral 2015-06-16 00:00:00 2018-10-18 00:00:00 No Camilo Hinojosa Md 40 Before Breakfast [facility] Cinebar 10/325 oral tablet 2012-03-24 14:29:40 Yes Felix Meredith 1-2 tab, PO, Q4-6H, PRN, 30 tab, 1, 1, Pain, Substitution Allowed, Maintenance [facility] Augmentin 875 mg oral tablet 2012-03-23 20:05:58 Yes Roshan er Shebib 1 tab, PO, BID, 20 tab, Substitution Allowed, Maintenance [facility] Percocet 5/325 oral tablet 2012-03-23 03:35:00 No Zach Mccauley 1 tab, Route: PO, Drug Form: TAB, Q6H, PRN Pain, Start date: 03/22/12 22:35:00, Duration: 30 day, Stop date: 04/21/12 22:34:00 [facility] Saline Flush 0.9% 2012-03-22 02:00:00 No Zach Little ss 5 ml, Route: IVP, Drug Form: INJ, Q12H, Start date: 03/21/12 21:00:00, Duration: 30 day, Stop date: 04/20/12 9:00:00 [facility] Saline Flush 0.9% 2012-03-21 17:22:00 No Zach Little ss 5 ml, Route: IVP, Drug Form: INJ, PRN, PRN Line Flush, Start date: 03/21/12 12:22:00, Duration: 30 day, Stop date: 04/20/12 12:21:00 [facility] vancomycin 2012-03-21 17:00:00 No Leonela Shebib 1 gm, 250 mL, Route: IVPB, Drug form: INJ, [id number], Start date: 03/21/12 12:00:00, Duration: 30 day, Stop date: 04/20/12 0:00:00 [facility] Mid[facility]or 2012-03-19 14:00:00 No Felix Meredith 5 mg, 1 tab, Route: PO, Drug form: TAB, Daily, Start date: 03/19/12 9:00:00, Duration: 30 day, Stop date: 04/17/12 9:00:00 [facility] Levemir FlexPen 2012-03-19 14:00:00 No Felix Meredith 12 unit, 0.12 mL, Route: SUB-Q, Drug form: INJ, BID, Start date: 03/19/12 9:00:00, Duration: 30 day, Stop date: 04/17/12 17:00:00 [facility] simvastatin 2012-03-19 14:00:00 No Felix Flaherty Masoud 20 mg, 1 tab, Route: PO, Drug form: TAB, QAM, Start date: 03/19/12 9:00:00, Duration: 30 day, Stop date: 04/17/12 9:00:00 [facility] insulin glargine 2012-03-19 14:00:00 No Felix Meredith 12 unit, Route: SUB-Q, Drug form: SOLN, BID, Start date: 03/19/12 9:00:00, Duration: 30 day, Stop date: 04/17/12 17:00:00 Marisela Calle amiloride-hydrochlorothiazide 5 mg-50 mg oral tablet 03-19 14:00:00 No Felix Meredith 1 tab, Route: PO , Drug Form: TAB, Daily, Start date: 03/19/12 9:00:00, Duration: 30 day, Stop date: 04/17/12 9:00:00 [facility] enalapril 2012-03-19 14:00:00 No Felix Meredith 10 mg, 1 tab, Route: PO, Drug form: TAB, Daily, Start date: 03/19/12 9:00:00, Duration: 30 day, Stop date: 04/17/12 9:00:00 [facility] hydrochlorothiazide 2012-03-19 14:00:00 No Felix Cedeño itt 50 mg, 1 tab, Route: PO, Drug form: TAB, Daily, Start date: 03/19/12 9:00:00, Duration: 30 day, Stop date: 04/17/12 9:00:00 Elias Gao metFORmin 500 mg oral tablet 2012-03-19 13:00:00 No Alberto ert D Masoud 500 mg, 1 tab, Route: PO, Drug form: TAB, BID-Meals, Start date: 03/19/12 8:00:00, Duration: 30 day, Stop date: 04/17/12 17:00:00 [facility] glyBURIDE 2012-03-19 13:00:00 No Felix D Masoud 5 mg, 1 tab, Route: PO, Drug form: TAB, BID-Meals, Start date: 03/19/12 8:00:00, Duration: 30 day, Stop date: 04/17/12 17:00:00 [facility] Zosyn 2012-03-19 07:00:00 No Felix D Masoud 3.375 gm, 100 mL, Route: IVPB, Drug form: PDR/INJ, ABXQ6H, Priority: Routine, Start date: 03/19/12 2:00:00, Duration: 30 day, Stop date: 04/17/12 20:00:00 [facility] insulin aspart 2012-03-19 03:35:00 No Felix Meredith 10 unit, 0.1 mL, Route: SUB-Q, Drug form: SOLN, TID-Before Meals, PRN Blood Glucose Results, Start date: 03/18/12 22:35:00, Duration: 30 day, Stop date: 04/17/12 22:34:00 [facility] Dextrose 50% Syringe 2012-03-19 03:35:00 No Felix Giles Witt 12.5 gm, 25 mL, Route: IVP, Drug Form: INJ, PRN, PRN Blood Glucose Results, Start date: 03/18/12 22:35:00, Duration: 30 day, Stop date: 04/17/12 22:34:00 [facility] glucagon 2012-03-19 03:35:00 No Felix D Masoud 1 mg, Route: IM, Drug form: PDR/INJ, PRN, PRN Blood Glucose Results, Start date: 03/18/12 22:35:00, Duration: 30 day, Stop date: 04/17/12 22:34:00 [facility] ondansetron 2012-03-19 03:34:00 No Felix D Masoud 4 mg, 1 tab, Route: PO, Drug form: TAB, Q6H, PRN Nausea & Vomiting, Start date: 03/18/12 22:34:00, Duration: 30 day, Stop date: 04/17/12 22:33:00 [facility] acetaminophen-hydrocodone 325 mg-5 mg oral tablet 03:34:00 No Felix Meredith 2 tab, Route: PO , Drug Form: TAB, Q4H, PRN Pain Score 4-6, Start date: 03/18/12 22:34:00, Duration: 30 day, Stop date: 04/17/12 22:33:00 [facility] Lantus Solostar Pen 100 units/mL subcutaneous solution 2012-03-19 01:34:22 Yes Felix Meredith 12 unit, SUB-Q, BID, Substitutio n Allowed [facility] glyBURIDE 5 mg oral tablet 2012-03-19 01:34:19 Yes Larry Flaherty Masoud 5 mg, 1 tab, PO, BID, Substitution Allowed [facility] metFORmin 500 mg oral tablet 2012-03-19 01:34:16 Yes Alberto Flaherty Masoud 500 mg, 1 tab, PO, BID, Substitution Allowed [facility] simvastatin 2012-03-19 01:34:12 Yes Felix Fishertt 20 mg, PO, QAM, Substitution Allowed [facility] amiloride-hydrochlorothiazide 5 mg-50 mg oral tablet 2 01:34:08 Yes Felix Fishertt 1 tab, PO, Daily, Substitution A llowed, Maintenance [facility] enalapril 10 mg oral tablet 2012-03-19 01:34:06 Yes Dominguez Flaherty Masoud 10 mg, 1 tab, PO, Daily, Substitution Allowed [facility] Zosyn 2012-03-19 00:57:00 No Junior Arora 3.375 gm, Route: IVPB, ONCE, Priority: STAT, Start date: 03/18/12 19:57:00, Stop date: 03/18/12 19:57:00 [facility] acetaminophen-hydrocodone 325 mg-5 mg oral tablet 00:46:00 No Junior Arora 1 tab, Route: PO , Drug Form: TAB, ONCE, Start date: 03/18/12 19:46:00, Stop date: 03/18/12 19:46:00 [facility] Amiloride/Hydrochlorothiazide (Amiloride Hcl-Hctz 5-50 Mg Tab) 1 Each Tablet Amiloride/Hydrochlorothiazide (Amiloride Hcl-Hctz 5-50 Mg Tab) 1 Each Tablet Yes 1 Daily [facility] Aspirin 81 Mg Tab.chew Aspirin 81 Mg Tab.chew Yes 81 Daily [facility] Atorvastatin Calcium 10 Mg Tablet Atorvastatin Calcium 10 Mg Tablet Yes 10 Today At 9:00PM [facility] Benzonatate 100 Mg Capsule Benzonatate 100 Mg Capsule Yes 100 Every 6 Hours as needed for Cough [facility] Enalapril Maleate 20 Mg Tablet Enalapril Maleate 20 Mg Tablet Yes 10 Daily [facility] Glipizide 5 Mg Tablet Glipizide 5 Mg Tablet Yes 10 Every 12 Hours [facility] Insulin Detemir (Levemir) 100 Unit/1 Ml Vial Insulin D etemir (Levemir) 100 Unit/1 Ml Vial Yes 25 Twice A Day [facility] Metformin Hcl (Metformin Hcl Er) 500 Mg Tab.er.24 Metf ormin Hcl (Metformin Hcl Er) 500 Mg Tab.er.24 Yes 1000 Twice A Day [facility] Simvastatin 20 Mg Tablet Simvastatin 20 Mg Tablet Yes 20 Today At 9:00PM [facility] Insulin Glargine (Lantus) 100 Units/Ml Ml, 25 Subcuta neously Insulin Glargine (Lantus) 100 Units/Ml Ml, 25 Subcutaneously 2019-07-11 00:00:00 No 25 Twice A Day [facility] Glipizide 5 Mg Tablet, 10 Mg Oral Glipizide 5 Mg Tablet, 10 Mg O ral 2018-10-28 00:00:00 No 10 Daily [facility] Tramadol Hcl (Ultram 50MG*) 50 Mg Tab, 50 Mg Oral Tram adol Hcl (Ultram 50MG*) 50 Mg Tab, 50 Mg Oral 2018-10-18 00:00:00 No 50 [facility] Vital Signs Vital Name Observation Time Observation Value Comments Source Diastolic (mm Hg) 2012-03-24 21:00:00 [facility] [place] Systolic (mm Hg) 2012-03-24 21:00:00 [facility]as [facility] Respitory Rate 2012-03-24 21:00:00 [facility] [place] Heart Rate 2012-03-24 21:00:00 [facility] Temperature Oral (F) 2012-03-24 21:00:00 98.9 F [facility] Systolic (mm Hg) 2012-03-24 17:00:00 Elias rial [place] Diastolic (mm Hg) 2012-03-24 17:00:00 [facility] Temperature Oral (F) 2012-03-24 17:00:00 98.0 F [facility] Heart Rate 2012-03-24 17:00:00 [facility] Respitory Rate 2012-03-24 17:00:00 [facility] Heart Rate 2012-03-24 13:00:00 [facility] Temperature Oral (F) 2012-03-24 13:00:00 98.0 F [facility] Respitory Rate 2012-03-24 13:00:00 [facility] Systolic (mm Hg) 2012-03-24 13:00:00 Elias [facility] [place] Diastolic (mm Hg) 2012-03-24 13:00:00 [facility] Height 2012-03-19 04:00:00 162.56 cm [facility] Height 2012-03-18 22:27:00 165.10 cm [facility] Weight 2012-03-18 22:27:00 [facility] Procedures Procedure Date / Time Performed Performing Clinician [facility] e Computed tomography, lower extremity; with contrast nelly rojas(s) 2019-07-13 00:00:00 YAMEL LI [facility] CT of abdomen and pelvis without contrast 2019-07-11 00:00:00 JUNIOR WEEKS [facility] EXCISION OF LEFT FOOT MUSCLE, OPEN APPROACH 2018-10-22 00:00:00 COTY LADY [facility] EXCISION OF RIGHT FOOT MUSCLE, OPEN APPROACH 2018-10-22 [facility] DUAL SKYE IN CHEST SUBCU/FASCIA, OPEN 2018-10-08 3 00:00[facility]ION OF PACEMAKER LEAD INTO RIGHT ATRIUM, PERC AP PROACH 2018-10-20 00:00:00 [facility] INSERTION OF PACEMAKER LEAD INTO R VENTRICLE, PERC APPROACH 2018-10-20 00:00:00 [facility] Encounters Start Date/Time End Date/Time [facility]counter Type [facility] ID Source 2020-03-26 07:40:00 2020-04-24 23:59:00 Outpatient Kavin Chu [facility] [id number] 2020-03-26 07:40:00 2020-03-26 07:40:00 Outpatient [facility] 2019-07-11 23:41:00 2019-07-18 15:24:00 Discharged Inpatient 1 MACARIO MULLER [facility] [id number] [facility] 2018-10-18 19:45:00 2018-10-28 15:02:00 Discharged Inpatient 1 MACARIO MULLER [facility] [id number] [facility] 2018-05-12 13:06:00 2018-05-12 13:06:00 Registered Clinic 3 LAZ OLMSTEAD [facility] [id number] [facility] 2015-01-25 14:17:00 2015-01-25 23:59:00 Outpatient Godoy, Vi pul Manubhai HELLEN HELLEN [id number] 2015-01-14 08:29:00 2015-01-14 23:59:00 Outpatient Godoy, Vi pul Manubhai [place] [id number] 2013-10-17 08:52:00 2013-10-17 23:59:00 Outpatient MHIE IE [id number] [facility] Results Test Description Test Time Test Comments Results Result Comments Source - XR FOOT 3 + V BI 2020-04-16 17:11:00 FAX: Antonio Franco [phone] [place]: St: REG -- Name: KORINA ACEVES [facility] [place] : 1955 Age/S: 64/F [address] [place] [address] Unit #: [id number] Loc: [place] [address] Phys: Antonio Smith DPM Acct: [id number] Dis Date: Status: REG CLI PHONE #: [phone] Exam Date: 04/16/2020 1645 FAX #: [phone] Reason: BILATERAL FOOT EXAMS: CPT CODE: [id number] XR FOOT 3 + [place] [id number] Study: - XR ANKLE 3 + V BI, - XR FOOT 3 + V BI 04/16/2020 4:09 PM Patient Name: KORINA ACEVES MR: [id number] : 1955; Age: 64 years y/o Female Ordering Physician: Antonio Smith DPM Clinical Indication: E11.610 BILATERAL FOOT Comparison: None Bilateral foot, 3 views Bilateral ankle, 3 views: RIGHT : Postoperative changes in the distal fibular shaft with lateral surgical plate and multiple surgical screws. Claw toe deformities are noted at multiple toes. Lateral subluxation at the 2nd and 3rd metatarsophalangeal joints. Moderate osteoarthrosis at the great toe metatarsophalangeal joint. Subcutaneous emphysema at the plantar medial aspect of the 1st metatarsophalangeal joint. LEFT : Healing spiral fracture of the distal fibula. Nonspecific periosteal thickening along the medial aspect of the fibular shaft. Chronic deformity with loss of height of the talus. Pes planus deformity. Calcaneal enthesophytes are present. Moderate osteoarthrosis and irregularity at the mid foot intertarsal joints. Moderate hallux valgus deformity. Dorsal foot soft tissue swelling. IMPRESSION: Right: 1. Moderate osteoarthrosis of the great toe metatarsophalangeal joint, with adjacent nonspecific subcutaneous emphysema. Correlate for recent surgery. Infection is not excluded. 2. Lateral subluxation at the 2nd and 3rd metatarsophalangeal joints. 3. Postoperative changes from prior ORIF of the distal fibula. Left: 1. Chronic deformity of the talus with the severe irregularity talocalcaneal joint, which may be posttraumatic in nature. 2. Irregularity of the mid foot intertarsal joints, which may PAGE 1 Signed Report (CONTINUED) FAX: Antonio Franco [phone] [place]: St: REG -- Name: KORINA ACEVES [facility] : 1955 Age/S: 64/F [address] [place] [address] Unit #: [id number] Loc: [place] [address] Phys: Antonio Antonio DPM Acct: [id number] Dis Date: Status: REG CLI PHONE #: [phone] Exam Date: 04/16/2020 1645 FAX #: [phone] Reason: BILATERAL FOOT EXAMS: CPT CODE: [id number] XR FOOT 3 + [place] [address] <Continued> represent Charcot arthropathy or osteoarthrosis. Overlying soft tissue swelling is present. Superimposed infection is not excluded. 3. Healing spiral fracture of the distal fibula, with fracture lines remaining visible. 4. Moderate hallux valgus deformity SL: AP-H at 1711 Reported and signed by: Ashwin Vargas M.D. CC: Antonio Smith DPM Technologist: RT Heather(Case) Trnscrd Date/Time/By: 04/16/2020 (1710) : By: [email or web address] Orig Print D/T: S: 04/16/2020 (1714) PAGE 2 Signed Report - XR ANKLE 3 + V BI 2020-04-16 17:11:00 FAX: Antonio Franco [phone] [place]: St: REG -- Name: KORINA ACEVES [facility] [place] : 1955 Age/S: 64/F [address] [place] [address] Unit #: [id number] Loc: [place] [address] Phys: Antonio Smith DPM Acct: [id number] Dis Date: Status: REG CLI PHONE #: [phone] Exam Date: 04/16/2020 1645 FAX #: [phone] Reason: E11.610 BILATERAL FOOT EXAMS: CPT CODE: [id number] XR ANKLE 3 + [place] [address] Study: - XR ANKLE 3 + V BI, - XR FOOT 3 + V BI 04/16/2020 4:09 PM Patient Name: KORINA ACEVES MR: [id number] : 1955; Age: 64 years y/o Female Ordering Physician: Antonio Smith DPM Clinical Indication: E11.610 BILATERAL FOOT Comparison: None Bilateral foot, 3 views Bilateral ankle, 3 views: RIGHT : Postoperative changes in the distal fibular shaft with lateral surgical plate and multiple surgical screws. Claw toe deformities are noted at multiple toes. Lateral subluxation at the 2nd and 3rd metatarsophalangeal joints. Moderate osteoarthrosis at the great toe metatarsophalangeal joint. Subcutaneous emphysema at the plantar medial aspect of the 1st metatarsophalangeal joint. LEFT : Healing spiral fracture of the distal fibula. Nonspecific periosteal thickening along the medial aspect of the fibular shaft. Chronic deformity with loss of height of the talus. Pes planus deformity. Calcaneal enthesophytes are present. Moderate osteoarthrosis and irregularity at the mid foot intertarsal joints. Moderate hallux valgus deformity. Dorsal foot soft tissue swelling. IMPRESSION: Right: 1. Moderate osteoarthrosis of the great toe metatarsophalangeal joint, with adjacent nonspecific subcutaneous emphysema. Correlate for recent surgery. Infection is not excluded. 2. Lateral subluxation at the 2nd and 3rd metatarsophalangeal joints. 3. Postoperative changes from prior ORIF of the distal fibula. Left: 1. Chronic deformity of the talus with the severe irregularity talocalcaneal joint, which may be posttraumatic in nature. 2. Irregularity of the mid foot intertarsal joints, which may PAGE 1 Signed Report (CONTINUED) FAX: Antonio Franco [phone] [place]: St: REG -- Name: KORINA ACEVES [facility] [facility] : 1955 Age/S: 64/F [address] [place] [address] Unit #: [id number] Loc: [place] [address] Phys: Antonio Antonio DPM Acct: [id number] Dis Date: Status: REG CLI PHONE #: [phone] Exam Date: 04/16/2020 1645 FAX #: [phone] Reason: [id number] BILATERAL FOOT EXAMS: CPT CODE: [id number] XR ANKLE 3 + [place] [address] <Continued> represent Charcot arthropathy or osteoarthrosis. Overlying soft tissue swelling is present. Superimposed infection is not excluded. 3. Healing spiral fracture of the distal fibula, with fracture lines remaining visible. 4. Moderate hallux valgus deformity SL: AP-H at 1711 Reported and signed by: Ashwin Vargas M.D. CC: Antonio Smith DPM Technologist: RT Heather(R) Trnscrd Date/Time/By: 04/16/2020 (171) : By: [email or web address] Orig Print D/T: S: 04/16/2020 (3757) PAGE 2 Signed Report Bedside Glucose 2019-07-18 11:37:00 Test Item Bedside Glucose (test code = 83819-4) 217 70-120 H Meter ID: [id number] [facility] 2019-07-18 11:33:00* Test Item Value Reference Range Interpretation Comments Blood Culture (test code = 05085302) NO GROWTH AFTER 5 DAYS, FINAL REPORT [facility]lineWound Krcdjnh9804-70-15 09:00:00* Test Item Value Reference Range Interpretation Comments Wound Culture (test code = 6462-6) Organism: STAPHYLOCOCCUS AUREUS [facility] ShorelinePlatelet Quubvdxa1909-77-54 07:56:00* Test Item Value Reference Range Interpretation Comments Platelet Estimate (test code = 81255-4) MODERATELY INCREASED [facility] ShorelineLarge Oelwcxisb4732-68-47 07:56:00* Test Item Value Reference Range Interpretation Comments Large Platelets (test code = 5908-9) FEW [facility] ShorelineDifferential Total Cells Counted 2019-07-17 07:55:00* Test Item Value Reference Range Interpretation Comments Differential Total Cells Counted (test code = Eugenia brannonroni Total Cells Counted) 100 [facility] ShorelineNeutrophils % (Manual)2019-07-17 07:55:00 * Test Item Value Reference Range Interpretation Comments Neutrophils % (Manual) (test code = 42627-1) 63 40-74 [facility] ShorelineBand Neutrophils %2019-07-17 07:55:00* Test Item Value Reference Range Interpretation Comments Band Neutrophils % (test code = 764-1) 3 [facility] ShorelineLymphocytes % (Manual)2019-07-17 07:55:00 * Test Item Value Reference Range Interpretation Comments Lymphocytes % (Manual) (test code = 737-7) 16 19-48 L [facility] ShorelineMonocytes % (Manual)2019-07-17 07:55:00* Test Item Value Reference Range Interpretation Comments Monocytes % (Manual) (test code = 744-3) 13 3.4-9.0 H [facility] ShorelineEosinophils % (Manual)2019-07-17 07:55:00 * Test Item Value Reference Range Interpretation Comments Eosinophils % (Manual) (test code = 714-6) 5 0-7 [facility] ShorelinePlatelet Morphology Bnhkrve6958-67-81 07:55:00* Test Item Value Reference Range Interpretation Comments Platelet Morphology Comment (test code = 83078-8) NORMAL [facility] ShorelinePolychromasia2019-09-09 07:55:00* Test Item Value Reference Range Interpretation Comments Polychromasia (test code = 94210-7) FEW [facility] ShorelinePoikilocytosis2019-09-09 07:55:00* Test Item Value Reference Range Interpretation Comments Poikilocytosis (test code = 779-9) SLIGHT [facility] ShorelineAnisocytosis2019-09-09 07:55:00* Test Item Value Reference Range Interpretation Comments Anisocytosis (test code = 702-1) SLIGHT [facility] ShorelineRed Cell Morphology Tzpsocl7560-31-19 07:55:00* Test Item Value Reference Range Interpretation Comments Red Cell Morphology Comment (test code = 6742-1) ABNORMAL [facility] ShorelineWhite Blood Jzevy9876-24-21 05:16:00* Test Item Value Reference Range Interpretation Comments White Blood Count (test code = 6690-2) 15.22 4.8-10.8 H [facility] ShorelineRed Blood Zphyu6437-12-76 05:16:00* Test Item Value Reference Range Interpretation Comments Red Blood Count (test code = 789-8) 3.57 3.6-5.1 L [facility] ShorelineHemoglobin2019-09-09 05:16:00* Test Item Value Reference Range Interpretation Comments Hemoglobin (test code = 95454-8) 9.0 12.0-16.0 L [facility] ShorelineHematocrit2019-09-09 05:16:00* Test Item Value Reference Range Interpretation Comments Hematocrit (test code = 4544-3) 28.3 34.2-44.1 L [facility] ShorelineMean Corpuscular Zvtaeh2831-61-19 05:16:00* Test Item Value Reference Range Interpretation Comments Mean Corpuscular Volume (test code = 787-2) 79.3 81-99 L [facility] ShorelineMean Corpuscular Mlcdmjxduu0537-20-00 05:16:00* Test Item Value Reference Range Interpretation Comments Mean Corpuscular Hemoglobin (test code = 785-6) 25.2 28-32 L [facility] Corpuscular Hemoglobin Concent 2019-07-17 05:16:00* Test Item Value Reference Range Interpretation Comments Mean Corpuscular Hemoglobin Concent (test code = 786-4) 31.8 31-35 [facility] ShorelineRed Cell Distribution Yyody3018-71-73 05:16:00* Test Item Value Reference Range Interpretation Comments Red Cell Distribution Width (test code = 75153-8) 18.1 11.7 -14.4 H [facility] ShorelinePlatelet Vmkdv5510-95-21 05:16:00* Test Item Value Reference Range Interpretation Comments Platelet Count (test code = 777-3) 523 140-360 H [facility] ShorelineNeutrophils (%) (Auto)2019-07-17 05:16:00 * Test Item Value Reference Range Interpretation Comments Neutrophils (%) (Auto) (test code = 68169-3) 62.6 38.7-80.0 [facility] ShorelineLymphocytes (%) (Auto)2019-07-17 05:16:00 * Test Item Value Reference Range Interpretation Comments Lymphocytes (%) (Auto) (test code = 736-9) 20.5 18.0-39.1 [facility] ShorelineMonocytes (%) (Auto)2019-07-17 05:16:00* Test Item Value Reference Range Interpretation Comments Monocytes (%) (Auto) (test code = 5905-5) 6.2 4.4-11.3 [facility]lineEosinophils (%) (Auto)2019-07-17 05:16:00 * Test Item Value Reference Range Interpretation Comments Eosinophils (%) (Auto) (test code = 713-8) 2.0 0.0-6.0 [facility] ShorelineBasophils (%) (Auto)2019-07-17 05:16:00* Test Item Value Reference Range Interpretation Comments Basophils (%) (Auto) (test code = 706-2) 0.5 0.0-1.0 [facility] ShorelineIM GRANULOCYTES %2019-07-17 05:16:00* Test Item Value Reference Range Interpretation Comments IM GRANULOCYTES % (test code = IM GRANULOCYTES %) 8.2 0.0- 1.0 H [facility] ShorelineNeutrophils # (Auto)2019-07-17 05:16:00* Test Item Value Reference Range Interpretation Comments Neutrophils # (Auto) (test code = 751-8) 9.5 2.1-6.9 H [facility] ShorelineLymphocytes # (Auto)2019-07-17 05:16:00* Test Item Value Reference Range Interpretation Comments Lymphocytes # (Auto) (test code = 70241-8) 3.1 1.0-3.2 [facility] ShorelineMonocytes # (Auto)2019-07-17 05:16:00* Test Item Value Reference Range Interpretation Comments Monocytes # (Auto) (test code = 742-7) 0.9 0.2-0.8 H [facility] ShorelineEosinophils # (Auto)2019-07-17 05:16:00* Test Item Value Reference Range Interpretation Comments Eosinophils # (Auto) (test code = 711-2) 0.3 0.0-0.4 [facility] ShorelineBasophils # (Auto)2019-07-17 05:16:00* Test Item Value Reference Range Interpretation Comments Basophils # (Auto) (test code = 704-7) 0.1 0.0-0.1 [facility] ShorelineAbsolute Immature Granulocyte (auto 2019-07-17 05:16:00* Test Item Value Reference Range Interpretation Comments Absolute Immature Granulocyte (auto (oni t code = Absolute Immature Granulocyte (auto) 1.25 0-0.1 H [facility] Northwesttool Occult Cydgp3868-26-53 18:47:00* Test Item Value Reference Range Interpretation Comments Stool Occult Blood (test code = 2335-8) POSITIVE NEGATIVE H [facility] Northwestodium Fpmlu4346-47-62 06:38:00* Test Item Value Reference Range Interpretation Comments Sodium Level (test code = 2951-2) 136 136-145 [facility] ShorelinePotassium Fwopn6985-49-58 06:38:00* Test Item Value Reference Range Interpretation Comments Potassium Level (test code = 2823-3) 4.1 3.5-5.1 [facility] ShorelineChloride Nqhro4877-96-31 06:38:00* Test Item Value Reference Range Interpretation Comments Chloride Level (test code = 2075-0) 99 98-107 [facility] ShorelineCarbon Dioxide Byhmw3833-39-69 06:38:00* Test Item Value Reference Range Interpretation Comments Carbon Dioxide Level (test code = 2028-9) 27 22-29 [facility] ShorelineAnion Bux7449-47-80 06:38:00* Test Item Value Reference Range Interpretation Comments Anion Gap (test code = 96936-9) 14.1 8-16 [facility] ShorelineBlood Urea Alzzodnl5172-53-98 06:38:00* Test Item Value Reference Range Interpretation Comments Blood Urea Nitrogen (test code = 3094-0) 14 7-26 [facility] ShorelineCreatinine2019-09-08 06:38:00* Test Item Value Reference Range Interpretation Comments Creatinine (test code = 2160-0) 0.67 0.57-1.11 [facility] ShorelineBUN/Creatinine Bhvzl6482-25-72 06:38:00* Test Item Value Reference Range Interpretation Comments BUN/Creatinine Ratio (test code = 3097-3) 21 6-25 [facility] ShorelineEstimat Glomerular Filtration Rate 2019-07-16 06:38:00* Test Item Value Reference Range Interpretation Comments Estimat Glomerular Filtration Rate (test code = 562364814) > 60 >60 Ranges were taken from the National Kidney Disease Education Program and the [facility] Kidney Foundation literature.Reference ranges:60 or greater: Icgzuz87-08 ( for 3 consecutive months): Chronic kidney disease 15 or less: Kidney failureCHRISTUS Spohn Hospital [facility]i – ShorelineGlucose Novum5733-09-07 06:38:00* Test Item Value Reference Range Interpretation Comments Glucose Level (test code = SPF9616) 107 74-118 [facility] ShorelineCalcium Vobrw2135-84-33 06:38:00* Test Item Value Reference Range Interpretation Comments Calcium Level (test code = 91740-2) 8.7 8.4-10.2 [facility] ShorelineC-Reactive Cncoguk3560-54-44 12:20:00* Test Item Value Reference Range Interpretation Comments C-Reactive Protein (test code = 1988-5) 112 0-10 H Performed at: - [facility] [id number] Director: Spencer Sifuentes MD, Phone: [phone] Spohn Hospital Corpus Christi – ShorelineVancomycin Level Hknbbk7585-27-00 10:54:00* Test Item Value Reference Range Interpretation Comments Vancomycin Level Trough (test code = 4092-3) 25.6 5.0-10.0 HH Results repeated and called to Kaylee Holliday at 1053 on 07/14/19 by Ksenia currie. Read back and verified.[facility] ShorelineReactive Vphzmgpycoi2331-89-44 10:31:00* Test Item Value Reference Range Interpretation Comments Reactive Lymphocytes (test code = 15605-3) 4 [facility] ShorelineBlood Axfbrjl7945-35-40 08:10:00* Test Item Value Reference Range Interpretation Comments Blood Culture (test code = 600-7) Organism: STAPHYLOCOCCUS AUREUS [facility] ShorelineTotal Jmupinhu0234-15-07 07:49:00* Test Item Value Reference Range Interpretation Comments Total Cortisol (test code = 2143-6) 16.5 . Cortisol AM 6.2 - 19.4 Co rtisol PM 2.3 - 11.9Performed at: [facility] [address] [id number] Director: Spencer Sifuentes MD, Phone: [phone] Spohn Hospital [facility]i – ShorelineCT FOOT LEFT B8468-50-17 14:29:00 [facility] [address] [address] Patient Name: KORINA ACEVES MR #: [id number] : 1955 Age/Sex: 63/F Req #: [id number] Adm Physician: MACARIO MULLER MD Ordered by: YAMEL LI Report #: [id number] Location: ICU Room/Bed: ICU [facility] Procedure: [id number] CT /CT FOOT LEFT W Exam Date: 07/13/19 Exam Time: 1400 REPORT STATUS: Signed EXAM: CT l eft foot with Contrast. CT right foot with contrast. INDICATION: Osteomyel itis. Foot pain. Decreased range of motion. Cellulitis. Wound. COMPARISON: TECHNIQUE: Left and right foot was scanned utilizing a multidetector h elical scanner after administration of IV contrast. Coronal and sagittal refor mations were obtained. Routine protocol was performed. IV CONTRAST: 10 0 cc Isovue-370 ORAL CONTRAST: None COMPLICATIONS: None RADIATION DOSE: Total DLP: 174 mGy*cm Estimated effective dos e: (DLP x 0.015 x size factor) mSv CTDIvol has been reviewed. It is below the limits set by the Radiation Protocol Committee (RPC). Dose modulat ion, iterative reconstruction, and/or weight based adjustment of the mA/kV was utilized to reduce the radiation dose to as low as reasonably achievable. FINDINGS: Left foot: Abnormal skin thickening with large skin defec t/ulceration at the plantar medial aspect of the foot at the level of the stephen cular bone. There is underlying cortical destruction and fragmentation of the navicular bone with several small adjacent air foci. There is an associated 2. 8 x 2.0 x 2.0 cm peripherally enhancing fluid collection along the dorsal aspe ct of the foot at the level of the cuneiform bones and a similar appearing 2.0 x 2.0 x 2.0 cm peripherally enhancing fluid collection along the medial aspect of the foot adjacent to the plantar aspect of the navicular bone. These are consistent with abscesses. These contain several small foci of air. The n avicular bone is subluxed in a plantar direction with respect to the adjacent cuneiform bone. Posterior lateral talar dome osteochondral lesion best seen on axial image 52 and sagittal image 36 through 38. No free fragmentation is seen. Comminuted slightly displaced subacute appearing distal fibular fract ure best seen on sagittal image 27 through 33. Scattered degenerative dougie nge about the remaining visualized osseous structures. Small inferior liseth caneal bone spur. Right foot: No acute fracture, dislocation or shante dence of avascular necrosis about the right foot. Scattered degenerative changes are seen. No talar dome osteochondral lesion is seen in the right f oot/ankle. Metallic surgical hardware in the distal fibula appears to be in tact. Abnormal skin thickening with skin ulceration at the level of the dis ilda first metatarsal and adjacent fifth toe. There is underlying cortical dest ruction and fragmentation involving the distal fifth metatarsal. There is an a ssociated 1.0 cm peripherally enhancing fluid collection along the dorsal aspe ct of the first metatarsophalangeal joint consistent with an abscess. Imp ression: Findings consistent with cellulitis, skin ulceration, abscesses and osteomyelitis involving the left and right foot as described above. Comminuted slightly displaced subacute appearing distal left fibular fracture Posterior lateral left talar dome osteochondral lesion. No free fragmentation is seen Signed by: Dr. Ness Thomson M.D. on 07/13/2019 3:00 PM Dic tated By: NESS THOMSON MD, MD 1500 Transcribed By: DIMITRIOS on 07/13/19 1500 COPY TO: YAMEL ANDINO CT FOOT RIGHT F1180-38-25 14:29:00 [place] [address] Patient Name: KORINA AECVES MR #: [id number] : 1955 Age/Sex: 63/F Req #: [id number] Adm Physician: MACARIO MULLER MD Ordered by: YAMEL LI Report #: [id number] Location: ICU Room/Bed: [place] [address] Procedure: CT /CT FOOT RIGHT W Exam Date: 07/13/19 Exam Time: 1400 REPORT STATUS: Signed EXAM: CT left foot with Contrast. CT right foot with contrast. INDICATION: Osteomye litis. Foot pain. Decreased range of motion. Cellulitis. Wound. COMPARISON: 07/11/2019 TECHNIQUE: Left and right foot was scanned utilizing a multidetector helical scanner after administration of IV contrast. Coronal and sagittal refo rmations were obtained. Routine protocol was performed. IV CONTRAST: 1 00 cc Isovue-370 ORAL CONTRAST: None COMPLICATIONS: None RADIATION DOSE: Total DLP: 174 mGy*cm Estimated effective do se: (DLP x 0.015 x size factor) mSv CTDIvol has been reviewed. It is belo w the limits set by the Radiation Protocol Committee (RPC). Dose modula tion, iterative reconstruction, and/or weight based adjustment of the mA/kV wa s utilized to reduce the radiation dose to as low as reasonably achievable. FINDINGS: Left foot: Abnormal skin thickening with large skin defe ct/ulceration at the plantar medial aspect of the foot at the level of the adriano icular bone. There is underlying cortical destruction and fragmentation of the navicular bone with several small adjacent air foci. There is an associated 2 .8 x 2.0 x 2.0 cm peripherally enhancing fluid collection along the dorsal asp ect of the foot at the level of the cuneiform bones and a similar appearing 2. 0 x 2.0 x 2.0 cm peripherally enhancing fluid collection along the medial aspe ct of the foot adjacent to the plantar aspect of the navicular bone. These are consistent with abscesses. These contain several small foci of air. The navicular bone is subluxed in a plantar direction with respect to the adjacent cuneiform bone. Posterior lateral talar dome osteochondral lesion best seen on axial image 52 and sagittal image 36 through 38. No free fragmentation is seen. Comminuted slightly displaced subacute appearing distal fibular frac ture best seen on sagittal image 27 through 33. Scattered degenerative ch deshawn about the remaining visualized osseous structures. Small inferior ca lcaneal bone spur. Right foot: No acute fracture, dislocation or ev idence of avascular necrosis about the right foot. Scattered degenerative changes are seen. No talar dome osteochondral lesion is seen in the right foot/ankle. Metallic surgical hardware in the distal fibula appears to be i ntact. Abnormal skin thickening with skin ulceration at the level of the di stal first metatarsal and adjacent fifth toe. There is underlying cortical calixto truction and fragmentation involving the distal fifth metatarsal. There is an associated 1.0 cm peripherally enhancing fluid collection along the dorsal asp ect of the first metatarsophalangeal joint consistent with an abscess. Im pression: Findings consistent with cellulitis, skin ulceration, abscesse s and osteomyelitis involving the left and right foot as described above. Comminuted slightly displaced subacute appearing distal left fibular fracture Posterior lateral left talar dome osteochondral lesion. No free fragmentation is seen Signed by: Dr. Ness Thomson M.D. on 07/13/2019 3:00 PM Di ctated By: NESS THOMSON MD, MD 1500 Transcribed By: DIMITRIOS on 07/13/19 1500 COPY TO: YAMEL AGOSTO Erythrocyte Sedimentation Tmob1837-68-67 12:35:00* Test Item Value Reference Range Interpretation Comments Erythrocyte Sedimentation Rate (test code = 4537-7) > 140.0 0- 20 H [facility] ShorelinePhosphorus Wsntv8097-53-19 06:36:00* Test Item Value Reference Range Interpretation Comments Phosphorus Level (test code = ZOK3440) 2.4 2.3-4.7 [facility] ShorelineMagnesium Vlqrc4805-15-60 06:36:00* Test Item Value Reference Range Interpretation Comments Magnesium Level (test code = 31103-3) 1.8 1.3-2.1 [facility] ShorelineHemoglobin A1c Mplafyx9902-83-05 06:22:00 * Test Item Value Reference Range Interpretation Comments Hemoglobin A1c Percent (test code = Hemoglobin A1c Percent) 7.7 4.0-7.0 H [facility] ShorelineCHEST XRAY LINE SYTDQTFPV7441-70-85 12:48:00 [facility] [address] [address] Patient Name: KORINA ACEVES MR #: [id number] : 1955 Age/Sex: 63/F Req #: [id number] Adm Physician: MACARIO MULLER MD Ordered by: MACARIO MULLER MD Report #: [id number] Location: ICU Room/Bed: [place] [address] Procedure: [id number] DX/CHEST XRAY LINE PLACEMENT Exam Date: 07/12/19 Exam Time: 1235 REPORT STATUS: Signed EXAM: CHEST XRAY LINE PLACEMENT DATE: 07/12/2019 12:33 PM INDICATION: PICC placement COMPARISON: 07/11/2019 FINDINGS: There has been interval placement of a right upper from the PICC line with distal tip terminating at t he expected level of the cavoatrial junction. Left-sided dual-lead pacing shelly ce identified in stable position. The remainder of the examination is uncha nged from the recent prior examination. There is no evidence for any new large focal consolidation or pneumothorax. There is stable blunting of left costoph renic angle and a trace pleural effusion is possible. The cardiomediastinal si lhouette is stable in appearance. No acute osseous abnormalities identified. IMPRESSION: Interval placement of a right upper extremity PICC line with tip appropriately terminating over the cavoatrial junction. Signed by: Dr. Cosmo Cowan MD on 07/12/2019 12:51 PM Dictated By: COSMO Flaherty 1251 Transcribed By: Cara MCCORMICK on 07/12/19 1251 COPY TO: MACARIO MULLER MD Thyroid Stimulating Hormone (TSH)2019-07-12 11:17:00* Test Item Value Reference Range Interpretation Comments Thyroid Stimulating Hormone (TSH) (test code = 28412-0) 1.195 0.350-4.940 [facility] ShorelineIron Notcc4983-54-34 10:08:00* Test Item Value Reference Range Interpretation Comments Iron Level (test code = 2498-4) 37 50-170 L [facility] ShorelineTotal Iron Binding Xhahmnrg8489-50-57 10:08:00* Test Item Value Reference Range Interpretation Comments Total Iron Binding Capacity (test code = 2500-7) 286 261-4 78 [facility] ShorelinePercent Iron Rrvrrfafuq0359-03-50 10:08:00* Test Item Value Reference Range Interpretation Comments Percent Iron Saturation (test code = 2502-3) 13 15-50 L [facility] ShorelineTransferrin2019-09-04 10:08:00* Test Item Value Reference Range Interpretation Comments Transferrin (test code = 3034-6) 204 180-382 [facility] ShorelineVitamin B12 Umsbp6140-66-66 09:47:00* Test Item Value Reference Range Interpretation Comments Vitamin B12 Level (test code = 39169-8) 409 213-816 [facility] ShorelineFolate2019-09-04 09:47:00* Test Item Value Reference Range Interpretation Comments Folate (test code = 2284-8) 3.5 7.0-15.4 L [facility] ShorelineTotal Qzmsinpoc9640-52-56 08:18:00* Test Item Value Reference Range Interpretation Comments Total Bilirubin (test code = 1975-2) 0.8 0.2-1.2 [facility] ShorelineAspartate Amino Transf (AST/SGOT) 2019-07-12 08:18:00* Test Item Value Reference Range Interpretation Comments Aspartate Amino Transf (AST/SGOT) (test code = Aspartate Amino Transf (AST/SGOT)) 22 5-34 [facility] ShorelineAlanine Aminotransferase (ALT/SGPT) 2019-07-12 08:18:00* Test Item Value Reference Range Interpretation Comments Alanine Aminotransferase (ALT/SGPT) (test code = 1742-6) 14 0-55 [facility] ShorelineTotal Jjjutbh7873-20-90 08:18:00* Test Item Value Reference Range Interpretation Comments Total Protein (test code = 2885-2) 5.9 6.5-8.1 L [facility] ShorelineAlbumin2019-09-04 08:18:00* Test Item Value Reference Range Interpretation Comments Albumin (test code = 1751-7) 1.7 3.5-5.0 L [facility] ShorelineGlobulin2019-09-04 08:18:00* Test Item Value Reference Range Interpretation Comments Globulin (test code = 59456-1) 4.2 2.3-3.5 [facility]lineAlbumin/Globulin Pbemn3727-12-43 08:18:00 * Test Item Value Reference Range Interpretation Comments Albumin/Globulin Ratio (test code = 1759-0) 0.4 0.8-2.0 L [facility] ShorelineAlkaline Elihrjnsjjb5508-76-96 08:18:00* Test Item Value Reference Range Interpretation Comments Alkaline Phosphatase (test code = 6768-6) 296 40-150 H [facility] ShorelineCreatine Kinase [id number] 07:55:00* Test Item Value Reference Range Interpretation Comments Creatine Kinase MB (test code = 06883-6) 0.50 0-5.0 [facility] ShorelineTroponin [id number] 07:55:00* Test Item Value Reference Range Interpretation Comments Troponin I (test code = AQV4784) 0.004 0-0.300 [facility] ShorelineCreatine Kacnjv6259-94-34 07:46:00* Test Item Value Reference Range Interpretation Comments Creatine Kinase (test code = 2157-6) 41 29-168 [facility] ShorelineLactic Acid Degxt8095-38-95 01:30:00* Test Item Value Reference Range Interpretation Comments Lactic Acid Level (test code = Lactic Acid Level) 8.5 4.5- 19.8 [facility] ShorelineProthrombin Bfcg3532-95-06 01:28:00* Test Item Value Reference Range Interpretation Comments Prothrombin Time (test code = 5902-2) 15.7 11.9-14.5 H [facility] ShorelineProthromb Time International Ratio 2019-07-12 01:28:00* Test Item Value Reference Range Interpretation Comments Prothromb Time International Ratio (test code = 6301-6) 1.19 Oral Anticoagulant Therapy INR Values:1. Low Intensity Therapy 1.5 - 2.02 . Moderate Intensity Therapy 2.0 - 3.03. High Intensity Therapy(1) 2.5 - 3. 54. High Intensity Therapy(2) 3.0 - 4.05. Panic Value INR > 5.0 [facility] ShorelineActivated Partial Thromboplast Time 2019-07-12 01:28:00* Test Item Value Reference Range Interpretation Comments Activated Partial Thromboplast Time (test code = 27783-3) 40.1 23.8-35.5 H [facility] ShorelineCT ABDOMEN/PELVIS [id number] 22:53:00 [place] [address] Patient Name: KORINA ACEVES MR #: [id number] : 1955 Age/Sex: 63/F Req #: [id number] Adm Physician: Ordered by: JUNIOR ARORA [employer] Report #: [id number] Location: ER Room/Bed: Procedure: [id number] CT /CT ABDOMEN/PELVIS WO Exam Date: 07/11/19 Exam Time: 2219 REPORT STATUS: Signed CT A bdomen and Pelvis without contrast INDICATION: Nausea, vomiting abdom inal pain [id number] TECHNIQUE: Thin collimation axial images obta ined from the diaphragm to the level of the pubic symphysis without nonionic i ntravenous contrast. Oral contrast was administered. Dose reduction tech niques used: Automated exposure control, adjustment of the mAs and/or kVp acco rding to patient size, standardized low-dose protocol, and/or iterative recons truction technique. RADIATION DOSE: Total DLP: 574.1 mGy*cm E stimated effective dose: (DLP x 0.015 x size factor) mSv CTDIvol has been reviewed. It is below the limits set by the Radiation Protocol Committee (RPC ). COMPARISON: CT abdomen/pelvis 06/09/2015. ABDOMEN FINDINGS: Daniel g Bases: Mild bibasilar atelectasis. The heart is enlarged with pacemaker wire s in the right atrium and right ventricle. The cardiac chambers are visible david ggestive of anemia. Pericardial fat pads are prominent. There is a small hiata l hernia. Fat and prominent lymph nodes within a hiatal hernia are stable. Liver: Steatosis. Gallbladder: Absent. No ductal dilatation. Pancreas : Fatty atrophy. No mass or ductal dilatation. Spleen: Normal size without mass. Adrenal Glands: No evidence for mass. Kidneys: Right: No waleska l calculus. No cortical mass or hydronephrosis Left: No renal calculus. No cortical mass or hydronephrosis Lymph Nodes: No enlarged zulema hepatis o r periaortic lymph nodes. Aorta: Normal in diameter. PELVIS FINDINGS: Bowel: Stomach: Normal. Small Bowel: Normal in caliber with normal wall thickness. Large Bowel: Diverticulosis coli. No associated inflammation. Appendix: Not visualized and may be absent. Bladder: Underdistended but o therwise normal. Ureters: No ureteral dilatation or calculus. The uter us is absent. No adnexal mass. Peritoneum/retroperitoneum: No free fluid or fluid collection. Bones: Mild degenerative changes of the spine are stable. Stable levoscoliosis. No focal osseous lesions. Soft tissues: Unremark able. IMPRESSION: 1. Diverticulosis coli. No evidence of diverticulit is. No bowel obstruction. Stable small hiatal hernia. 2. Status post cho lecystectomy and hysterectomy. The appendix is not visualized and may be also be absent. 3. Steatosis. Suspected anemia. Signed by: Dr. Dana banks MD on 07/11/2019 10:58 PM Dictated By: DANA SCHUMACHER MD Electro nically Signed By: DANA SCHUMACHER MD on 07/11/192257 Transcribed By: KARIS Almaguer on 07/11/192257 COPY TO: JUNIOR ARORA NP FOOT LEFT [id number] 22:18:00 [place] [address] Patient Name: KORINA ACEVES MR #: [id number] : 1955 Age/Sex: 63/F Req #: [id number] Adm Physician: Ordered by: JUNIOR ARORA NP Report #: [id number] Location: ER Room/Bed: Procedure: [id number] DX /FOOT LEFT COMPLETE Exam Date: 07/11/19 Exam Time: 2 125 REPORT STATUS: Signed Foot c omplete CPT code: 97215 Indication: Large wound medial aspect of left foot rule out osteo, septic [id number] Technique: Portable A.P ., oblique and lateral views of the left foot obtained. Comparison: X-rays 10/20/2018 Findings: The bones are diffusely demineralized. Calcaneu s is intact with a prominent plantar spur. The midfoot is intact. There is fo liseth demineralization of the navicular without significant periosteal new bone formation. There is overlying soft tissue swelling. Partial amputation of t he second digit is redemonstrated. Hallux valgus is stable. No periosteal ne w bone formations or focal demineralization. Significant soft tissue swelli ng and ulceration along the medial aspect of the midfoot without radiopaque fo reign body. Significant soft tissue swelling of the dorsum of the foot at the mid metatarsals. IMPRESSION: Focal demineralization of the navicular a t the area of soft tissue swelling is concerning for osteomyelitis. Stab le hallux valgus and second digit amputation. Signed by: Dr. Dana Graham MD on 07/11/2019 10:25 PM Dictated By: DANA reddy Signed By: DANA SCHUMACHER MD on 07/11/192224 Transcribed By: DIMITRIOS on 07/11/192224 COPY TO: JUNIOR ARORA NP CHEST SINGLE (PORTABLE)2019-07-11 22:16:00 [place] [address] Patient Name: KORINA ACEVES MR #: [id number] : 1955 Age/Sex: 63/F Req #: [id number] Adm Physician: Ordered by: JUNIOR ARORA NP Report #: [id number] Location: ER Room/Bed: Procedure: [id number] DX /CHEST SINGLE (PORTABLE) Exam Date: 07/11/19 Exam Ti me: 2124 REPORT STATUS: Signed E XAMINATION: CHEST SINGLE (PORTABLE) COMPARISON: Chest x-ray 10/18/2018 INDICATION: Osteomyelitis ERMD ORDER [id number] Y D ISCUSSION: Frontal view of the chest obtained at 2142 hours. HEART AND ME DIASTINUM: Stable cardiomegaly and pulmonary venous prominence. Dual-lead pac emaker wires terminate in the right atrium and right ventricle. There are calc ifications of the aortic arch LINES: None. LUNGS: Minimal bibasila r atelectasis. No pneumonia or pulmonary edema. PLEURA: There is stable bl unting of the left lateral costophrenic angle. Right costophrenic angle is sha rp. No pneumothorax BONES AND SOFT TISSUES: No focal osseous lesion. The s oft tissues are normal. IMPRESSION: Mild cardiomegaly and pulmonary v enous hypertension. Blunting of the left lateral costophrenic angle suggest janusz of pleural effusion or pleural thickening. Signed by: Dr. Dana Schumacher MD on 07/11/2019 10:18 PM Dictated By: DANA SCHUMACHER MD Electr onically Signed By: DANA SCHUMACHER MD on 07/11/192217 Transcribed By: MARILYN SANCHES on 07/11/192217 COPY TO: JUNIOR ARORA [employer]GER Urine WBC 2019-07-11 21:23:00* Test Item Value Reference Range Interpretation Comments Urine WBC (test code = 5821-4) 0-5 0-5 [facility]lineUrine [id number] 21:23:00* Test Item Value Reference Range Interpretation Comments Urine RBC (test code = 77312-8) NONE 0-5 [facility] ShorelineUrine Tvrqkboj6677-98-37 21:23:00* Test Item Value Reference Range Interpretation Comments Urine Bacteria (test code = 37607-4) MODERATE NONE H [facility] ShorelineUrine Epithelial Dtdcd7449-55-58 21:23:00 * Test Item Value Reference Range Interpretation Comments Urine Epithelial Cells (test code = 56837-3) FEW NONE [facility]lineUrine Amorphous Rzbptmoq4328-57-21 21:23:00* Test Item Value Reference Range Interpretation Comments Urine Amorphous Sediment (test code = 8246-1) MANY FEW H [facility] ShorelineUrine Coarse Granular Ztcgz1239-64-37 21:23:00* Test Item Value Reference Range Interpretation Comments Urine Coarse Granular Casts (test code = 43877-9) 1-5 >0 H [facility] ShorelineUrine Jffzb5089-88-73 21:14:00* Test Item Value Reference Range Interpretation Comments Urine Color (test code = 5778-6) STRAW YELLOW [facility] ShorelineUrine Vtxvyvs1806-85-63 21:14:00* Test Item Value Reference Range Interpretation Comments Urine Clarity (test code = 80010-4) SL CLOUDY CLEAR [facility] ShorelineUrine Specific Mmvkjhc8836-55-74 21:14:00 * Test Item Value Reference Range Interpretation Comments Urine Specific [place] (test code = 5811-5) 1.015 1.010-1.02 5 [facility] ShorelineUrine lS7808-09-61 21:14:00* Test Item Value Reference Range Interpretation Comments Urine pH (test code = 89423-2) 6.5 5-7 [facility] Leukocyte Mgztwysm4012-55-91 21:14:00* Test Item Value Reference Range Interpretation Comments Urine Leukocyte Esterase (test code = 76109-9) NEGATIVE NEGATIV E [facility] Vaisneb1618-05-65 21:14:00* Test Item Value Reference Range Interpretation Comments Urine Nitrite (test code = 80509-2) NEGATIVE NEGATIVE [facility]lineUrine Zgcicfs1673-28-57 21:14:00* Test Item Value Reference Range Interpretation Comments Urine Protein (test code = 52056-5) 2+ NEGATIVE H [facility] Glucose (UA)2019-07-11 21:14:00* Test Item Value Reference Range Interpretation Comments Urine Glucose (UA) (test code = 08470-7) NEGATIVE NEGATIVE [facility]lineUrine Jjsltta4116-04-68 21:14:00* Test Item Value Reference Range Interpretation Comments Urine Ketones (test code = 35636-8) NEGATIVE NEGATIVE [facility] ShorelineUrine Fviwqfjkeypx5566-94-51 21:14:00* Test Item Value Reference Range Interpretation Comments Urine Urobilinogen (test code = 71557-4) 0.2 0.2-1 [facility]lineUrine Rjjufmxzb1817-95-09 21:14:00* Test Item Value Reference Range Interpretation Comments Urine Bilirubin (test code = 1977-8) SMALL NEGATIVE [facility] ShorelineUrine Iqveg6679-29-67 21:14:00* Test Item Value Reference Range Interpretation Comments Urine Blood (test code = 11964-7) NEGATIVE NEGATIVE [facility] ShorelineB-Type Natriuretic Tmolckn9696-91-70 20:52:00* Test Item Value Reference Range Interpretation Comments B-Type Natriuretic Peptide (test code = 79982-7) 113.7 0-100 H [facility] ShorelineBedside Ytubrni8580-44-70 07:58:00* Test Item Value Reference Range Interpretation Comments Bedside Glucose (test code = 84746-4) 108 70-120 Meter ID: [id number] [facility] 2018-10-24 05:22:00* Test Item Value Reference Range Interpretation Comments Sodium Level (test code = 2951-2) 140 136-145 [facility]linePotassium Ltinq1658-12-76 05:22:00* Test Item Value Reference Range Interpretation Comments Potassium Level (test code = 2823-3) 3.9 3.5-5.1 [facility] ShorelineChloride Gcdxc7779-07-42 05:22:00* Test Item Value Reference Range Interpretation Comments Chloride Level (test code = 2075-0) 109 98-107 H [facility] ShorelineCarbon Dioxide Egfsm4958-90-68 05:22:00* Test Item Value Reference Range Interpretation Comments Carbon Dioxide Level (test code = 2028-9) 23 22-29 [facility] ShorelineAnion Gfa1531-32-46 05:22:00* Test Item Value Reference Range Interpretation Comments Anion Gap (test code = 40791-9) 11.9 8-16 [facility] ShorelineBlood Urea Stsbkpfb2724-26-79 05:22:00* Test Item Value Reference Range Interpretation Comments Blood Urea Nitrogen (test code = 3094-0) 8 7-26 [facility] ShorelineCreatinine2018-12-17 05:22:00* Test Item Value Reference Range Interpretation Comments Creatinine (test code = 2160-0) 0.77 0.57-1.11 [facility] ShorelineBUN/Creatinine Fgtlz7828-29-78 05:22:00* Test Item Value Reference Range Interpretation Comments BUN/Creatinine Ratio (test code = 3097-3) 10 6-25 [facility] ShorelineEstimat Glomerular Filtration Rate 2018-10-24 05:22:00* Test Item Value Reference Range Interpretation Comments Estimat Glomerular Filtration Rate (test code = 637274005) > 60 >60 Ranges were taken from the National Kidney Disease Education Program and the [facility] [employer] literature.Reference ranges:60 or greater: Drdydb20-75 ( for 3 consecutive months): Chronic kidney disease 15 or less: Kidney failureCHRISTUS [facility]ohn [facility] – ShorelineGlucose Ojckb5250-05-80 05:22:00* Test Item Value Reference Range Interpretation Comments Glucose Level (test code = EDQ1239) 108 74-118 [facility] ShorelineCalcium Zymui4296-54-35 05:22:00* Test Item Value Reference Range Interpretation Comments Calcium Level (test code = 50625-3) 8.3 8.4-10.2 L [facility] ShorelineWhite Blood Hqdqy7792-56-35 05:00:00* Test Item Value Reference Range Interpretation Comments White Blood Count (test code = 6690-2) 7.57 4.8-10.8 [facility] ShorelineRed Blood Vwdsi8169-08-87 05:00:00* Test Item Value Reference Range Interpretation Comments Red Blood Count (test code = 789-8) 3.36 3.6-5.1 L [facility] ShorelineHemoglobin2018-12-17 05:00:00* Test Item Value Reference Range Interpretation Comments Hemoglobin (test code = 06972-1) 9.2 12.0-16.0 L [facility] ShorelineHematocrit2018-12-17 05:00:00* Test Item Value Reference Range Interpretation Comments Hematocrit (test code = 4544-3) 29.4 34.2-44.1 L [facility] ShorelineMean Corpuscular Fqqjda6648-26-14 05:00:00* Test Item Value Reference Range Interpretation Comments Mean Corpuscular Volume (test code = 787-2) 87.5 81-99 [facility] ShorelineMean Corpuscular Rsbppimwdm5779-59-50 05:00:00* Test Item Value Reference Range Interpretation Comments Mean Corpuscular Hemoglobin (test code = 785-6) 27.4 28-32 L [facility] ShorelineMean Corpuscular Hemoglobin Concent 2018-10-24 05:00:00* Test Item Value Reference Range Interpretation Comments Mean Corpuscular Hemoglobin Concent (test code = 786-4) 31.3 31-35 [facility] ShorelineRed Cell Distribution Tsjdz8268-88-01 05:00:00* Test Item Value Reference Range Interpretation Comments Red Cell Distribution Width (test code = 64102-3) 14.2 11.7 -14.4 [facility] ShorelinePlatelet Vdrkv7994-70-56 05:00:00* Test Item Value Reference Range Interpretation Comments Platelet Count (test code = 777-3) 320 140-360 [facility] ShorelineNeutrophils (%) (Auto)2018-10-24 05:00:00 * Test Item Value Reference Range Interpretation Comments Neutrophils (%) (Auto) (test code = 36080-2) 50.6 38.7-80.0 [facility] ShorelineLymphocytes (%) (Auto)2018-10-24 05:00:00 * Test Item Value Reference Range Interpretation Comments Lymphocytes (%) (Auto) (test code = 736-9) 34.1 18.0-39.1 [facility]lineMonocytes (%) (Auto)2018-10-24 05:00:00* Test Item Value Reference Range Interpretation Comments Monocytes (%) (Auto) (test code = 5905-5) 9.0 4.4-11.3 [facility]lineEosinophils (%) (Auto)2018-10-24 05:00:00 * Test Item Value Reference Range Interpretation Comments Eosinophils (%) (Auto) (test code = 713-8) 5.5 0.0-6.0 [facility]lineBasophils (%) (Auto)2018-10-24 05:00:00* Test Item Value Reference Range Interpretation Comments Basophils (%) (Auto) (test code = 706-2) 0.3 0.0-1.0 [facility] ShorelineIM GRANULOCYTES %2018-10-24 05:00:00* Test Item Value Reference Range Interpretation Comments IM GRANULOCYTES % (test code = IM GRANULOCYTES %) 0.5 0.0- 1.0 [facility] ShorelineNeutrophils # (Auto)2018-10-24 05:00:00* Test Item Value Reference Range Interpretation Comments Neutrophils # (Auto) (test code = 751-8) 3.8 2.1-6.9 [facility] ShorelineLymphocytes # (Auto)2018-10-24 05:00:00* Test Item Value Reference Range Interpretation Comments Lymphocytes # (Auto) (test code = 45771-0) 2.6 1.0-3.2 [facility]lineMonocytes # (Auto)2018-10-24 05:00:00* Test Item Value Reference Range Interpretation Comments Monocytes # (Auto) (test code = 742-7) 0.7 0.2-0.8 [facility]lineEosinophils # (Auto)2018-10-24 05:00:00* Test Item Value Reference Range Interpretation Comments Eosinophils # (Auto) (test code = 711-2) 0.4 0.0-0.4 [facility]lineBasophils # (Auto)2018-10-24 05:00:00* Test Item Value Reference Range Interpretation Comments Basophils # (Auto) (test code = 704-7) 0.0 0.0-0.1 [facility] ShorelineAbsolute Immature Granulocyte (auto 2018-10-24 05:00:00* Test Item Value Reference Range Interpretation Comments Absolute Immature Granulocyte (auto (oni t code = Absolute Immature Granulocyte (auto) 0.04 0-0.1 [facility] ShorelineBlood Iaiycth2369-66-30 17:01:00* Test Item Value Reference Range Interpretation Comments Blood Culture (test code = 34473888) NO GROWTH AFTER 5 DAYS, FINAL REPORT [facility] ShorelineRandom Vancomycin Ayrpc7063-96-59 05:31:00* Test Item Value Reference Range Interpretation Comments Random Vancomycin Level (test code = 03941-3) 15.5 [facility] ShorelineRandom Vancomycin Mjrrm8417-66-19 05:31:00* Test Item Value Reference Range Interpretation Comments Random Vancomycin Level (test code = 41154-2) 15.5 [facility] ShorelineFOOT LEFT FJJCJSLC5869-58-28 10:18:00 [facility] [address] [place] [address] Patient Name: KORINA ACEVES MR #: [id number] : 1955 Age/Sex: 62/F Req #: [id number] Adm Physician: MACARIO MULLER MD Ordered by: LADY ANSARI DPHannah Report #: [id number] Location: [facility] Room/Bed: [place] [address] Procedure: [id number] DX/FOOT LEFT COMPLETE Exam Date: 10/20/18 Exam Time: 0945 REPORT STATUS: Signed PROCEDURE: X-RAY LEFT FOOT, COMPLETE COMPARISON: None. INDICATIONS: ULCER TO LEFT HEEL FINDINGS: No acute, displaced fracture or dislocation. Appropriate alignment between the medial cuneiform and second metatarsal base . Post surgical changes related to partial second ray amputation at the level of the middle phalangeal base. Hallux valgus deformity. Pes planus deformity with degenerative plantar calcaneal spur. No gross soft tissue defe ct or cortical erosive changes. CONCLUSION: No large soft tissue defect or underlying cortical erosive change to correspond to the reported le ft heel ulcer. No acute osseous abnormality. Dictated by: Flaco William on 10/20/2018 at 10:18 Electronically approved by: Flaco Paredes M.D. on 10/20/2018 at 10:18 Dictated By: FLACO PAREDES MD 1018 Transcribed By: PATTIE on 10/20/18 1018 COPY TO: LADY ANSARI DPM Vitamin B12 Rjtrl3196-29-70 06:34:00 * Test Item Value Reference Range Interpretation Comments Vitamin B12 Level (test code = 06807-2) > 2000 213-816 H [facility] ShorelineThyroid Stimulating Hormone (TSH) 2018-10-20 06:23:00* Test Item Value Reference Range Interpretation Comments Thyroid Stimulating Hormone (TSH) (test code = 44489-4) 1.608 0.350-4.940 [facility] ShorelinePhosphorus Theml9167-48-45 06:08:00* Test Item Value Reference Range Interpretation Comments Phosphorus Level (test code = WZD8583) 3.5 2.3-4.7 [facility] ShorelineMagnesium Ilrin3664-11-48 06:08:00* Test Item Value Reference Range Interpretation Comments Magnesium Level (test code = 05698-6) 2.2 1.3-2.1 H [facility] ShorelineHemoglobin A1c Eerzddv6311-04-13 06:04:00 * Test Item Value Reference Range Interpretation Comments Hemoglobin A1c Percent (test code = Hemoglobin A1c Percent) 7.4 4.0-7.0 H [facility] ShorelineVancomycin Level Dvnwcn0072-66-18 05:47:00* Test Item Value Reference Range Interpretation Comments Vancomycin Level Trough (test code = 4092-3) 19.5 5.0-10.0 Results called to SONALI RAINEY RN at 0546 on 10/20/18 by Leticia Stiles. RB OK.[facility] ShorelineFOOT RIGHT PBBSQSKK0075-45-54 21:52:00 [facility] [address] [place] [address] Patient Name: KORINA ACEVES MR #: [id number] : 1955 Age/Sex: 62/F Req #: [id number] Adm Physician: MACARIO MULLER MD Ordered by: LADY ANSARI DPM Report #: [id number] Location: [facility] Room/Bed: [facility] 198 Procedure: [id number] DX/FOOT RIGHT COMPLETE Exam Date: 10/19/18 Exam Time: 2119 REPORT STATUS: Signed FOOT RIGHT COMPLETE HISTORY: Plantar wound. COMPARISON: None available. FINDINGS: Bones: No acute displaced fracture. No erosions. Hallux valgus d eformity with approximately 37 degrees of angulation. Hammertoe deformities. Partially visualized distal fibular plate and screw construct. Joints: Scattered mild to moderate degenerative changes. Soft tissues: Soft tissu e swelling of the medial plantar forefoot. IMPRESSION: No radiographic e vidence of osteomyelitis. Recommend repeat radiographs in 6-8 weeks in the set ting of continued poor wound healing. Signed by: DR. Carson Javier MD on 12/20/2017 9:57 PM Dictated By: CARSON JAVIER MD 56 Transcribed By: DIMITRIOS on 10/19/182156 COPY TO: LADY ANSARI DPM Creatine Kinase XT7360-80-98 07:57:00* Test Item Value Reference Range Interpretation Comments Creatine Kinase MB (test code = 26480-4) 2.30 0-5.0 [facility] ShorelineTroponin U8503-20-47 07:57:00* Test Item Value Reference Range Interpretation Comments Troponin I (test code = FDU6826) 0.001 0-0.300 [facility] ShorelineProthrombin Lgqi9011-44-15 07:50:00* Test Item Value Reference Range Interpretation Comments Prothrombin Time (test code = 5902-2) 14.7 11.9-14.5 H [facility] ShorelineProthromb Time International Ratio 2018-10-19 07:50:00* Test Item Value Reference Range Interpretation Comments Prothromb Time International Ratio (test code = 6301-6) 1.05 Oral Anticoagulant Therapy INR Values:1. Low Intensity Therapy 1.5 - 2.02 . Moderate Intensity Therapy 2.0 - 3.03. High Intensity Therapy(1) 2.5 - 3. 54. High Intensity Therapy(2) 3.0 - 4.05. Panic Value INR > 5.0 [facility] Owxydvxpj1068-88-57 07:49:00* Test Item Value Reference Range Interpretation Comments Total Bilirubin (test code = 1975-2) 0.6 0.2-1.2 [facility] Amino Transf (AST/SGOT) 2018-10-19 07:49:00* Test Item Value Reference Range Interpretation Comments Aspartate Amino Transf (AST/SGOT) (test code = Aspartate Amino Transf (AST/SGOT)) 21 5-34 [facility]line[facility]anine Aminotransferase (ALT/SGPT) 2018-10-19 07:49:00* Test Item Value Reference Range Interpretation Comments Alanine Aminotransferase (ALT/SGPT) (test code = 1742-6) 18 0-55 [facility] Xzdnozh2628-03-16 07:49:00* Test Item Value Reference Range Interpretation Comments Total Protein (test code = 2885-2) 6.8 6.5-8.1 [facility]2018-12-12 07:49:00* Test Item Value Reference Range Interpretation Comments Albumin (test code = 1751-7) 3.0 3.5-5.0 L [facility]line[facility]obulin2018-12-12 07:49:00* Test Item Value Reference Range Interpretation Comments Globulin (test code = 22833-8) 3.8 2.3-3.5 H [facility]lineAlbumin/Globulin Vvfon4422-55-31 07:49:00 * Test Item Value Reference Range Interpretation Comments Albumin/Globulin Ratio (test code = 1759-0) 0.8 0.8-2.0 [facility]lineAlkaline Obcfhmzsyqo8534-74-21 07:49:00* Test Item Value Reference Range Interpretation Comments Alkaline Phosphatase (test code = 6768-6) 94 40-150 [facility]lineCreatine Clyavn4021-62-65 07:49:00* Test Item Value Reference Range Interpretation Comments Creatine Kinase (test code = 2157-6) 94 29-168 [facility]line[facility] Gtwgz3212-42-51 22:51:00* Test Item Value Reference Range Interpretation Comments Urine Color (test code = 5778-6) YELLOW YELLOW [facility]line[facility] Wxvjrxa5763-31-43 22:51:00* Test Item Value Reference Range Interpretation Comments Urine Clarity (test code = 50755-1) CLEAR CLEAR [facility]line[facility] Specific Niuqxik0209-17-51 22:51:00 * Test Item Value Reference Range Interpretation Comments Urine Specific [place] (test code = 5811-5) 1.015 1.010-1.02 5 [facility] dH5739-02-96 22:51:00* Test Item Value Reference Range Interpretation Comments Urine pH (test code = 19048-3) 9 5-7 H [facility] Leukocyte Krnxifsn1167-13-72 22:51:00* Test Item Value Reference Range Interpretation Comments Urine Leukocyte Esterase (test code = 5799-2) NEGATIVE NEGATIVE [facility]line[facility] Yytlohp0175-98-37 22:51:00* Test Item Value Reference Range Interpretation Comments Urine Nitrite (test code = 55255-3) NEGATIVE NEGATIVE [facility] Vzjefzh6844-78-20 22:51:00* Test Item Value Reference Range Interpretation Comments Urine Protein (test code = 5804-0) NEGATIVE NEGATIVE [facility] Glucose (UA)2018-10-18 22:51:00* Test Item Value Reference Range Interpretation Comments Urine Glucose (UA) (test code = 2349-9) NEGATIVE NEGATIVE [facility] Nquriss4199-87-81 22:51:00* Test Item Value Reference Range Interpretation Comments Urine Ketones (test code = 54046-3) NEGATIVE NEGATIVE [facility] Eaqjhgeusjut6351-51-88 22:51:00* Test Item Value Reference Range Interpretation Comments Urine Urobilinogen (test code = 69067-9) 0.2 0.2-1 [facility] Rqvlihjyp3887-49-56 22:51:00* Test Item Value Reference Range Interpretation Comments Urine Bilirubin (test code = 1978-6) NEGATIVE NEGATIVE [facility] Osoob9436-86-99 22:51:00* Test Item Value Reference Range Interpretation Comments Urine Blood (test code = 05038-4) NEGATIVE NEGATIVE [facility]line[facility] BQZ0331-65-49 22:51:00* Test Item Value Reference Range Interpretation Comments Urine WBC (test code = 5821-4) 6-10 0-5 H [facility] IVG3088-08-42 22:51:00* Test Item Value Reference Range Interpretation Comments Urine RBC (test code = 00783-6) 0-5 0-5 [facility] Lgmdchka8648-01-47 22:51:00* Test Item Value Reference Range Interpretation Comments Urine Bacteria (test code = 07360-2) RARE NONE [facility] Epithelial Uiniw4949-31-30 22:51:00 * Test Item Value Reference Range Interpretation Comments Urine Epithelial Cells (test code = 66368-5) RARE NONE [facility]lineCHEST SINGLE (PORTABLE)2018-10-18 18:40:00 [facility] [address] [place] [address] Patient Name: KORINA ACEVES MR #: [id number] : 1955 Age/Sex: 62/F Req #: [id number] Adm Physician: Ordered by: JUNIOR ARORA NP Report #: [id number] Location: ER Room/Bed: Procedure: [id number] DX /CHEST SINGLE (PORTABLE) Exam Date: 10/18/18 Exam Ti me: 1745 REPORT STATUS: Signed E XAMINATION: CHEST SINGLE (PORTABLE) INDICATION: bradycardia [id number] COMPARISON: None FINDINGS: AP view TUBES and LINES: None. LUNGS: Lungs are well inflated. Bilateral int erstitial edema. No lobar consolidations. PLEURA: No pleural effusion or pneumothorax. HEART AND MEDIASTINUM: Mild enlargement of the cardiac si lhouette. Atherosclerotic calcifications of the aortic arch. BONES AND S OFT TISSUES: No acute osseous lesion. Soft tissues are unremarkable. UP PER ABDOMEN: No free air under the diaphragm. IMPRESSION: Bilateral interstitial edema. Signed by: Dr. Aiyana Fletcher M.D. on 10/08 6:41 PM Dictated By: AIYANA FLETCHER MD Electronically Si gned By: AIYANA FLETCHER MD on 10/18/181840 Transcribed By: DIMITRIOS on 10/18/181840 COPY TO: JUNIOR ARORA NP Lactic Acid Level 2018-10-18 17:16:00* Test Item Value Reference Range Interpretation Comments Lactic Acid Level (test code = Lactic Acid Level) 18.0 4.5- 19.8 [facility] YALKCZUJ5255-51-25 15:07:00 [place] [address] Patient Name: KORINA ACEVES MR #: [id number] : 1955 Age/Sex: 62/F Req #: [id number] Adm Physician: Ordered by: JUNIOR ARORA NP Report #: [id number] Location: ER Room/Bed: Procedure: [id number] DX /FOOT LEFT COMPLETE Exam Date: 10/18/18 Exam Time: 1 450 REPORT STATUS: Signed Exa m: Left foot 3 views History: Cellulitis, foot ulcer Comparison: MRI left foot 06/12/2015. Findings: No acute, displaced fracture or dislocation. Hallux valgus deformity and multiple hammertoe deformities, which limits eval uation of the distal phalanges. Postsurgical changes of the second phalanx calixto cribed on comparison MRI are poorly visualized by plain radiography. Joint spa mya are relatively well-maintained. Soft tissue ulceration is evident on the l ateral radiograph at the level of the midfoot. Pes planus deformity. Imp ression: Plantar soft tissue ulceration without underlying plain film evide nce of osteomyelitis. Chronic hallux valgus deformity and multiple hammer toe deformities as above. Signed by: Dr. Flaco Paredes M.D. on 10/18/20 3:11 PM Dictated By: FLACO PAREDES MD 10 Transcribed By: DIMITRIOS on 10/18/181510 COPY TO: JUNIOR ARORA NP MAMMOGRAPHY DIGITAL SCR BUIHB0842-18-27 14:13:00 [place] [address] Patient Name: KORINA ACEVES MR #: [id number] : 1955 Age/Sex: 62/F Req #: [id number] Adm Physician: Ordered by: LAZ OLMSTEAD MD Report #: [id number] Location: [facility] Room/Bed: Procedure: [id number] MG/MAMMOGRAPHY DIGITAL SCR B ILAT Exam Date: 05/12/18 Exam Time: 1400 REPOR T STATUS: Signed #[id number] - [id number] #BILATERAL DIGITAL SCREENING MAMMOGRAM WITH CAD: 05/12/2018 CLINICAL: Routine screening. Comparison is made to exam dated: 04/08/2012 mammogram - [facility]. Current study contains 4 films. The tissue of both breasts is predominant ly fatty. Current study was also evaluated with a Computer Aided Detection ( CAD) system. No significant masses, calcifications, or other findings are se en in either breast. There has been no significant interval change. IMP RESSION: BENIGN There is no mammographic evidence of malignancy. A 1 year scr eening mammogram is recommended. The patient will be notified by letter of th e results. Emilia amos/ariella:05/16/2018 10:21 :38 Clerical Adjudicator: Kaitlin PHILLIPS(R)(M), [facility] letter sent: Compared to Prior B9 Mammogram BI-RADS: 2 Benign Dictated By: EMILIA KLINE DO 1021 Transcribed By: ARIELLA on 05/16/18 1021 COPY TO: LAZ BARRERA MD BEDSIDE GLUCOSE CMKVLCW8349-43-25 21:32:12132Xvkpbudx [facility] BEDSIDE GLUCOSE JKJBWCH3760-99-70 15:41:66831Hrejaalt HermannBEDSIDE GLUCOSE IBOLVVG3326-61-30 12:34:42886Zzmitkyj QnfrqwiMOUPJCRUV1146-00-45 11:00:0025 [facility] FbveqkhMMNJVIWFZ3832-89-00 11:00:009.2[facility]annCHEMISTRY 2012-03-24 11:00:63058Zpkzqqxg FurkzjlMTHNLZCJJ9655-99-49 11:00:0011[facility] NkcjjkuJHVVQPTSP8385-04-84 11:00:001.1[facility] MuqjkzaZTMASQUHB6982-63-21 11:00:56548Kpiruxjl KvjekmoFGQIOKDOK0381-80-22 11:00:22101Ubtojspz [facility] FXLCDXUPT8458-12-59 11:00:003.7[facility] HtdsrlwTBPQFBISC5263-88-35 11:00:0014.7 [facility] ZzutfcnMCHGAOPONG3091-55-82 11:00:003.6[facility]annHEMATOLOGY 2012-03-24 11:00:004.5[facility] OhzmxnjPYHJXNIWBS5517-62-35 11:00:008.1[facility] NegsbsxTHQWGTOEUG4245-06-73 11:00:000.3[facility] PstjnqlDVYFBYBHZD1927-65-75 11:00:000.7[facility] FxchzveQIONRLVBOC1573-54-03 11:00:005.3[facility] VBMIYJTDES4110-09-41 11:00:0062.1[facility] RvadaegGOMLIFRILH2278-72-23 11:00:00 27.8[facility] QwpoptgPAKMAZISVU5946-82-85 11:00:000.6[facility]annHEMATOLOGY 2012-03-24 11:00:000.0[facility] LpgysrcUWCGOWTDBD6630-10-29 11:00:0012.2[facility] DlqlrbgDYXVHPLFXY0497-70-26 11:00:0036.4[facility] EdguqfiVCCHVVUKSB1903-48-38 11:00:0089.8[facility] JrjpmpbWBQAYBCOCI0831-80-79 11:00:00* Test Item Value Reference Range Interpretation Comments MCH (test code = MCH) 30.0 pg 27.0-31.0 N [facility] UsrpjwcOZMCNYSAJG3379-49-97 11:00:004.06[facility]annHEMATOLOGY 2012-03-24 11:00:0013.0[facility] ZckghjdXQPBGBCPYV2548-97-67 11:00:0033.4[facility] LwwvuxiPVXZOMIHYA1663-79-26 11:00:008.0[facility] WkrsyrqPTSOGTZIFK3197-68-36 11:00:19711Vccrtwjb NsjbeuqQPEWLGFJSP2283-32-81 11:00:0014.9[facility] IVLEIPYMA6045-75-40 10:20:008.7[facility] UfelfilATHZLVQZI1375-83-61 10:20:003.6 [facility] LylnjrgCGWSNJXNW0364-32-94 10:20:12827Hcqzezhm HermannCHEMISTRY 2012-03-23 10:20:87257Bspwvxhf WthgwdlWWOTPUWUA0124-37-57 10:20:0027[facility] HzlimijVPNSKBMZS2324-64-84 10:20:34903Wmacqqxr ApcwtakIHCSOJJQY0657-70-83 10:20:0011[facility] OdwjtvrURXZHUKTG2102-17-47 10:20:001.0[facility] IJITPHQJY7721-50-85 10:20:0011.6[facility] UmbzwtjRGZQDJXCJI3457-01-38 10:20:000.1 [facility] QurbcqnBFOKZBKYBZ7317-41-43 10:20:000.5[facility]annHEMATOLOGY 2012-03-23 10:20:003.6[facility] ByevdgmXDMHANHKMI3418-12-23 10:20:000.8[facility] JywatwpZILLOPJUZK0503-35-01 10:20:004.7[facility] QiumwimMYMGBBEOTA5883-85-83 10:20:000.5[facility] ZwsrxhqFLTFUICBGH3685-92-20 10:20:005.5[facility] HXRQPLTYEN0375-59-01 10:20:0052.6[facility] CexeixgZGPCPSIBAO7525-15-48 10:20:00 34.4[facility] SsjxhodRQDUPSADIQ6705-48-38 10:20:007.8[facility]annHEMATOLOGY 2012-03-23 10:20:007.7[facility] NdipwteMHSSCKWIGG5327-40-12 10:20:0014.8[facility] ZxgvnevWCOZSBZMFH3697-64-01 10:20:14646Owwopuda JckuspqWJVYTBCLMM5248-72-11 10:20:0090.5[facility] NxphbjpVHUVFKKZRL4005-12-84 10:20:00* Test Item Value Reference Range Interpretation Comments MCH (test code = MCH) 30.1 pg 27.0-31.0 N [facility] PoxbiufQRNURVUTSG4760-79-71 10:20:0033.3[facility]annHEMATOLOGY 2012-03-23 10:20:0010.5[facility] FgxjnzwFAPLJIAWFU0165-50-66 10:20:0034.0[facility] YllbupnKJEUXIPFJE0777-75-05 10:20:0011.3[facility] WoppzndIRDZIFTFYR0729-36-37 10:20:003.76[facility] WgxcuunWESZENWXC8836-25-92 03:52:351287Uevmqsgp [facility] XNXIPQLOX0338-86-45 03:52:0013.8[facility] UnptpngNJNNDCVCQ0234-70-94 10:50:0010.8 [facility] AchzsjkAAGXZTHOZ8855-01-10 10:50:009[facility] QkuoekiQCZARUZAY3391-53-07 10:50:003.9[facility] AyyayqqMEHHKHURY7466-79-71 10:50:000.8[facility] FYEOUNBDE5548-61-83 10:50:008.5[facility] YvrggblWQTBIHBXJ9377-26-96 10:50:003.0 [facility] QicflhkOBOTSBWCG3951-83-95 10:50:0027[facility]annCHEMISTRY 2012-03-22 10:50:24103Ujxdhubt IfvgncjSYSLSTSNR5620-29-13 10:50:0010[facility] FtuqjaqLIVIKYNVP3919-36-32 10:50:001.1[facility] ZvghiudFESGMEMOH0403-69-31 10:50:42355Praslgjh TkqhcuyUBROHGLAP5946-68-59 10:50:003.8[facility] KLNVGAPEC4642-19-18 10:50:49179Olfeqgqs PqrnwytIJQWRUUMD2823-04-76 10:50:000.5 [facility] WaojzpwASKPXZHWA8073-28-31 10:50:0078[facility]annCHEMISTRY 2012-03-22 10:50:008[facility] NgsqrjtVTYFBDUOM7449-41-44 10:50:0020[facility] PludkjkBFDTERTXD4774-60-43 10:50:006.9[facility] WojmqswDZKCNWMIFW1611-92-55 10:50:0068[facility] IjbehmkBMNOOXUKXY4846-58-53 10:50:74931Dlwbktfa [facility] WJSAMUFIFR5398-02-09 10:50:007.6[facility] GhkphxwYOWPQCOWWR3658-96-31 10:50:00 15.2[facility] HalhvsaEQURZGKZFL9294-07-07 10:50:0011.3[facility] HermannHEMATOLOGY 2012-03-22 10:50:0034.3[facility] FpqfxtdEBRGBJQKRS6578-92-70 10:50:0090.1[facility] XqjtfsuPWPGLVCUSP1264-83-79 10:50:00* Test Item Value Reference Range Interpretation Comments MCH (test code = MCH) 29.7 pg 27.0-31.0 N [facility] XzymzmcSTQSJJTIET6825-95-51 10:50:0032.9[facility] HermannHEMATOLOGY 2012-03-22 10:50:003.80[facility] EubfzpzIDHFFWUNJO1194-26-60 10:50:0011.9[facility] KrrypvrCLOKBNSJON1838-96-24 10:50:007.6[facility] UiahbvgULLFWEQORX9983-49-46 10:50:0025.3[facility] IrkeojiACRVUXEASJ9711-87-51 10:50:0064.1[facility] LFLSFQYEXP1873-83-20 10:50:000.9[facility] IerixpoRWWNPAVYHM5199-19-37 10:50:000.3 [facility] UbwapapXMQQTCVUGJ7904-71-09 10:50:003.0[facility]annHEMATOLOGY 2012-03-22 10:50:002.7[facility] YmzqxqcQMNSDHACTO6724-91-60 10:50:007.6[facility] ZectczvDGIBVLYQTE1108-89-99 10:50:000.3[facility] MoadzgyDTYVLZXEWM5588-37-70 10:50:000.0[facility] FfvzwgiHVGKEGIPBF2248-48-43 10:50:0026.8[facility] NDHIQWPWM8224-82-80 10:19:008.4[facility] ZvlpnzuJJZJTISPA8404-88-55 14:15:0037.0 [facility] ZlfpspfVEXQCABDD0745-52-85 14:15:00Left Bra (03/20/2012 09:15:00) [facility] IknxwukBRHJXKYLG5316-88-44 14:15:0021.0[facility]annCHEMISTRY 2012-03-20 14:15:00N/A (03/20/2012 09:15:00) [facility]annCHEMISTRY 2012-03-20 14:15:007.39[facility] LhoxcaxWPKNYKMUJ7623-34-73 14:15:0066[facility] UrgwcvwCGBGLDQLX3602-07-03 14:15:0025[facility] FbybsgcKMFMQARLM8028-69-58 14:15:0043[facility] LlnswqxVQWHELJKO4620-10-09 14:15:001[facility]annCHEMISTRY 2012-03-20 14:15:0091.6[facility] LxkevciGXRQZUCOO4261-72-63 08:43:001.910[facility] CiovdlhSMLWHIAVZ4448-54-50 08:43:008.1[facility] GxelcvhFHOCSTYSU3937-21-96 08:43:38704Teoaqoiw EngxhdwLMUQMETCJ3538-26-14 08:43:0016[facility] XTWYOGJLE5652-04-27 08:43:000.1[facility] KepzkdsPQZHULHPO7538-63-67 08:43:000.5 [facility] HjtealiVPUSGJQTR4811-62-09 08:43:003.5[facility] HermannCHEMISTRY 2012-03-20 08:43:0028[facility] CafzyeePDZTDCTXJ7272-35-24 08:43:007.0[facility] BnmswmvBWJCNPWGD4508-92-74 08:43:000.4[facility] TotenmzQQGZULXHR1276-70-36 08:43:001.0[facility] CkjbrzeQCBAFVREN4796-20-85 08:43:003.5[facility] MKHCNTMTS8488-90-21 08:43:003.39[facility] SksffrmQIYUHIXRG4092-15-01 08:43:0086 [facility] AcquzixCIGTSKXJB7684-75-97 08:43:0054[facility] HermannCHEMISTRY 2012-03-20 08:43:27625Xkyyjxru VosmokkBMNGCOJTQ7417-53-79 08:43:01856Vtdmrjfg ZuczypbTKYYEMUNP4977-77-03 08:43:850607Nzuszncn VfvrrymSGPSSNVOPW5319-35-14 08:43:000.89[facility] AnlmxfbFOZQNNLMTF1383-78-82 08:43:00* Test Item Value Reference Range Interpretation Comments PT (test code = PT) 12.1 s 12.0-14.7 N [facility] KyabbklYUYLYNAOCJ5440-94-96 08:43:0050[facility] HermannIMMUNOLOGY 2012-03-20 08:43:0025.8[facility] WutiwbuGVMEVXOOMC4277-90-12 08:43:00Non Reactive (03/20/2012 03:43:00) [facility]
--- OUTSIDE RECORDS SUMMARY | 2020-06-25 15:54 | XMS REPORT | CCD ---
Author Author Auto KORINA Wolfe [facility] Address Unknown Phone Unavailable Care Team Providers Care Anglesmith Name Role Phone Felix Meredith CP Allergies, Adverse Reactions, Alerts Substance Reaction Status NKDA Active Problem List Condition Effective Dates Status Cholecystectomy Active DM - Diabetes mellitus Active HTN - Hypertension Active Hyperlipidemia Active Hysterectomy Active OM - Osteomyelitis Active Medications Medication Instructions Start Date End Date Status vancomycin 1 gm, 250 mL, Route: IVPB, Drug 03/21/2012 012 Discontinued form: INJ, [id number], Start date: 03/21/12 12:00:00, Duration: 30 day, Stop date: 04/20/12 0:00:00 Midamor 5 mg, 1 tab, Route: PO, Drug form: 03/19/201203/08 Discontinued TAB, Daily, Start date: 03/19/12 9:00:00, Duration: 30 day, Stop date: 04/17/12 9:00:00 Levemir FlexPen 12 unit, 0.12 mL, Route: SUB-Q, 03/19/2012 Discontinued Drug form: INJ, BID, Start date: 03/19/12 9:00:00, Duration: 30 day, Stop date: 04/17/12 17:00:00 Saline Flush 0.9% 5 ml, Route: IVP, Drug Form: INJ, 03/21/2012 03/24/2012 Discontinued Q12H, Start date: 03/21/12 21:00:00, Duration: 30 day, Stop date: 04/20/12 9:00:00 Saline Flush 0.9% 5 ml, Route: IVP, Drug Form: INJ, 03/21/2012 03/24/2012 Discontinued PRN, PRN Line Flush, Start date: 03/21/12 12:22:00, Duration: 30 day, Stop date: 04/20/12 12:21:00 Percocet 5/325 oral 1 tab, Route: PO, Drug Form: TAB, 03/22/2012 03/24/2012 Discontinued tablet Q6H, PRN Pain, Start date: 03/22/12 22:35:00, Duration: 30 day, Stop date: 04/21/12 22:34:00 acetaminophen-hydroc 1 tab, Route: PO, Drug Form: TAB, 201103/18/2012 Completed odone 325 mg-5 mg ONCE, Start date: 03/18/12 oral tablet 19:46:00, Stop date: 19:46:00 Lantus Solostar Pen 12 unit, SUB-Q, BID, Substitution 012 Ordered 100 units/mL Allowed subcutaneous solution metFORmin 500 mg 500 mg, 1 tab, PO, BID, 03/18/2012 Orde red oral tablet Substitution Allowed glyBURIDE 5 mg oral 5 mg, 1 tab, PO, BID, Substitution 2011 Ordered tablet Allowed amiloride-hydrochlor 1 tab, PO, Daily, Substitution 2 Ordered othiazide 5 mg-50 mg Allowed, Maintenance oral tablet simvastatin 20 mg, PO, QAM, Substitution 03/18/2012 O rdered Allowed enalapril 10 mg oral 10 mg, 1 tab, PO, Daily, 03/18/2012 Ordered tablet Substitution Allowed Zosyn 3.375 gm, Route: IVPB, ONCE, 03/18/2012 03/18/2012 Completed Priority: STAT, Start date: 03/18/12 19:57:00, Stop date: 03/18/12 19:57:00 Augmentin 875 mg 1 tab, PO, BID, 20 tab, 03/23/2012 04/02/2012 Ordered oral tablet Substitution Allowed, Maint enance insulin aspart 10 unit, 0.1 mL, Route: SUB-Q, Drug 03/18/2012 03/24/2012 Discontinued form: SOLN, TID-Before Meals, PRN Blood Glucose Results, Start date: 03/18/12 22:35:00, Duration: 30 day, Stop date: 04/17/12 22:34:00 insulin aspart 8 unit, 0.08 mL, Route: SUB-Q, Drug 03/18/2012 03/24/2012 Discontinued form: SOLN, TID-Before Meals, PRN Blood Glucose Results, Start date: 03/18/12 22:35:00, Duration: 30 day, Stop date: 04/17/12 22:34:00 insulin aspart 6 unit, 0.06 mL, Route: SUB-Q, Drug 03/18/2012 03/24/2012 Discontinued form: SOLN, TID-Before Meals, PRN Blood Glucose Results, Start date: 03/18/12 22:35:00, Duration: 30 day, Stop date: 04/17/12 22:34:00 insulin aspart 4 unit, 0.04 mL, Route: SUB-Q, Drug 03/18/2012 03/24/2012 Discontinued form: SOLN, TID-Before Meals, PRN Blood Glucose Results, Start date: 03/18/12 22:35:00, Duration: 30 day, Stop date: 04/17/12 22:34:00 insulin aspart 2 unit, 0.02 mL, Route: SUB-Q, Drug 03/18/2012 03/24/2012 Discontinued form: SOLN, TID-Before Meals, PRN Blood Glucose Results, Start date: 03/18/12 22:35:00, Duration: 30 day, Stop date: 04/17/12 22:34:00 Dextrose 50% Syringe 12.5 gm, 25 mL, Route: IVP, Drug 03/18/2012 03/24/2012 Discontinued Form: INJ, PRN, PRN Blood Glucose Results, Start date: 03/18/12 22:35:00, Duration: 30 day, Stop date: 04/17/12 22:34:00 Dextrose 50% Syringe 25 gm, 50 mL, Route: IVP, Drug 03/18/2012 03/24/2012 Discontinued Form: INJ, PRN, PRN Blood Glucose Results, Start date: 03/18/12 22:35:00, Duration: 30 day, Stop date: 04/17/12 22:34:00 glucagon 1 mg, Route: IM, Drug form: 03/18/2012 03/24/2012 Discontinued PDR/INJ, PRN, PRN Blood Glucose Results, Start date: 03/18/12 22:35:00, Duration: 30 day, Stop date: 04/17/12 22:34:00 insulin aspart 3 unit, 0.03 mL, Route: SUB-Q, Drug 03/18/2012 03/24/2012 Discontinued form: SOLN, Bedtime, PRN Blood Glucose Results, Start date: 03/18/12 22:35:00, Duration: 30 day, Stop date: 04/17/12 22:34:00 insulin aspart 4 unit, 0.04 mL, Route: SUB-Q, Drug 03/18/2012 03/24/2012 Discontinued form: SOLN, Bedtime, PRN Blood Glucose Results, Start date: 03/18/12 22:35:00, Duration: 30 day, Stop date: 04/17/12 22:34:00 insulin aspart 2 unit, 0.02 mL, Route: SUB-Q, Drug 03/18/2012 03/24/2012 Discontinued form: SOLN, Bedtime, PRN Blood Glucose Results, Start date: 03/18/12 22:35:00, Duration: 30 day, Stop date: 04/17/12 22:34:00 insulin aspart 1 unit, 0.01 mL, Route: SUB-Q, Drug 03/18/2012 03/24/2012 Discontinued form: SOLN, Bedtime, PRN Blood Glucose Results, Start date: 03/18/12 22:35:00, Duration: 30 day, Stop date: 04/17/12 22:34:00 simvastatin 20 mg, 1 tab, Route: PO, Drug form: 03/19/2012 Discontinued TAB, QAM, Start date: 03/19/12 9:00:00, Duration: 30 day, Stop date: 04/17/12 9:00:00 insulin glargine 12 unit, Route: SUB-Q, Drug form: 03/19/2012 03/19/2012 Deleted SOLN, BID, Start date: 03/19/12 9:00:00, Duration: 30 day, Stop date: 04/17/12 17:00:00 metFORmin 500 mg 500 mg, 1 tab, Route: PO, Drug 03/19/2012 Discontinued oral tablet form: TAB, BID-Meals, Start date: 03/19/12 8:00:00, Duration: 30 day, Stop date: 04/17/12 17:00:00 glyBURIDE 5 mg, 1 tab, Route: PO, Drug form: 03/19/201203/08 Discontinued TAB, BID-Meals, Start date: 03/19/12 8:00:00, Duration: 30 day, Stop date: 04/17/12 17:00:00 amiloride-hydrochlor 1 tab, Route: PO, Drug Form: TAB, 201103/19/2012 Deleted othiazide 5 mg-50 mg Daily, Start date: 03/19/12 oral tablet 9:00:00, Duration: 30 day, Stop date: 04/17/12 9:00:00 enalapril 10 mg, 1 tab, Route: PO, Drug form: 03/19/2012 Discontinued TAB, Daily, Start date: 03/19/12 9:00:00, Duration: 30 day, Stop date: 04/17/12 9:00:00 Zosyn 3.375 gm, 100 mL, Route: IVPB, Drug 03/19/2012 Discontinued form: PDR/INJ, [id number], Priority: Routine, Start date: 03/19/12 2:00:00, Duration: 30 day, Stop date: 04/17/12 20:00:00 ondansetron 4 mg, 1 tab, Route: PO, Drug form: 03/18/201203/08 Discontinued TAB, Q6H, PRN Nausea & Vomiting, Start date: 03/18/12 22:34:00, Duration: 30 day, Stop date: 04/17/12 22:33:00 acetaminophen-hydroc 2 tab, Route: PO, Drug Form: TAB, 201103/24/2012 Discontinued odone 325 mg-5 mg Q4H, PRN Pain Score 4-6, St art oral tablet date: 03/18/12 22:34:00, Du ration: 30 day, Stop date: 04/17/12 22:33:00 acetaminophen-hydroc 1 tab, Route: PO, Drug Form: TAB, 201103/24/2012 Discontinued odone 325 mg-5 mg Q4H, PRN Pain Score 1-3, St art oral tablet date: 03/18/12 22:34:00, Du ration: 30 day, Stop date: 04/17/12 22:33:00 hydrochlorothiazide 50 mg, 1 tab, Route: PO, Drug form: 03/1903/24/2012 Discontinued TAB, Daily, Start date: 03/19/12 9:00:00, Duration: 30 day, Stop date: 04/17/12 9:00:00 [place] 10/325 oral 1-2 tab, PO, Q4-6H, PRN, 30 tab, 1, 03/24/2012 04/03/2012 Ordered tablet 1, Pain, Substitution Allow ed, Maintenance Vital Signs Most recent to oldest [Reference Range]: 1 2 3 Height 162.56 cm (03/18/2012 23:00:00) 165.10 cm (03/18/2012 17:27:00) Current Weight 87.182 kg (03/18/2012 23:00:00) Temperature Oral [96.4-99.1 DegF] 98.9 DegF (03/24/2012 16:00:00) 98.0 DegF (03/24/2012 12:00:00) 98.0 DegF (03/24/2012 08:00:00) Systolic Blood Pressure [90-140 mmHg] 96 mmHg (03/24/2012 16:00:00) 107 mmHg (03/24/2012 12:00:00) 109 mmHg (03/24/2012 08:00:00) Diastolic Blood Pressure [60-90 mmHg] 67 mmHg (03/24/2012 16:00:00) 74 mmHg (03/24/2012 12:00:00) 67 mmHg (03/24/2012 08:00:00) Respiratory Rate [14-20 BRMIN] 16 BRMIN (03/24/2012 16:00:00) 16 BRMIN (03/24/2012 12:00:00) 16 BRMIN (03/24/2012 08:00:00) Peripheral Pulse Rate [60-100 bpm] 96 bpm (03/24/2012 16:00:00) 98 bpm (03/24/2012 12:00:00) 87 bpm (03/24/2012 08:00:00) Weight 86.364 kg (03/18/2012 17:27:00) Results BEDSIDE GLUCOSE TESTING Most recent to oldest [Reference Range]: 1 2 3 Gluc POC [place] [70-99 mg/dL] 170 mg/dL 1 *HI* (03/24/2012 16:32:00) 223 mg/dL 2 *HI* (03/24/2012 10:41:00) 152 mg/dL 3 *HI* (03/24/2012 07:34:00) Comment1 Notify RN/MD *NA* (03/23/2012 20:36:00) Notify RN/MD *NA* (03/23/2012 17:14:00) Notify RN/MD *NA* (03/23/2012 11:37:00) Comment2 Notify RN/MD *NA* (03/21/2012 20:50:00) Notify RN/MD *NA* (03/19/2012 16:21:00) 1Interpretive Data: Upper Reportable Limit: 200 mg/dL. 2Interpretive Data: Upper Reportable Limit: 200 mg/dL. 3Interpretive Data: Upper Reportable Limit: 200 mg/dL. CHEMISTRY Most recent to oldest [Reference Range]: 1 2 3 Sodium Lvl [135-145 mEq/L] 137 mEq/L (03/24/2012 06:00:00) 139 mEq/L (03/23/2012 05:20:00) 138 mEq/L (03/22/2012 05:50:00) Potassium Lvl [3.5-5.1 mEq/L] 3.7 mEq/L (03/24/2012 06:00:00) 3.6 mEq/L (03/23/2012 05:20:00) 3.8 mEq/L (03/22/2012 05:50:00) Chloride Lvl [95-109 mEq/L] 101 mEq/L (03/24/2012 06:00:00) 104 mEq/L (03/23/2012 05:20:00) 104 mEq/L (03/22/2012 05:50:00) CO2 [24-32 mEq/L] 25 mEq/L (03/24/2012 06:00:00) 27 mEq/L (03/23/2012 05:20:00) 27 mEq/L (03/22/2012 05:50:00) AGAP [10.0-20.0 mEq/L] 14.7 mEq/L (03/24/2012 06:00:00) 11.6 mEq/L (03/23/2012 05:20:00) 10.8 mEq/L (03/22/2012 05:50:00) Creatinine Lvl [0.5-1.4 mg/dL] 1.1 mg/dL (03/24/2012 06:00:00) 1.0 mg/dL (03/23/2012 05:20:00) 1.1 mg/dL (03/22/2012 05:50:00) BUN [7-22 mg/dL] 11 mg/dL (03/24/2012 06:00:00) 11 mg/dL (03/23/2012 05:20:00) 10 mg/dL (03/22/2012 05:50:00) B/C Ratio [6-25] 9 (03/22/2012 05:50:00) Glucose Lvl [70-99 mg/dL] 144 mg/dL 4 *HI* (03/24/2012 06:00:00) 145 mg/dL 5 *HI* (03/23/2012 05:20:00) 148 mg/dL 6 *HI* (03/22/2012 05:50:00) Total Protein [6.4-8.4 g/dL] 6.9 g/dL (03/22/2012 05:50:00) 7.0 g/dL (03/20/2012 03:43:00) Albumin Lvl [3.5-5.0 g/dL] 3.0 g/dL *LOW* (03/22/2012 05:50:00) 3.5 g/dL (03/20/2012 03:43:00) Globulin [2.0-4.0 g/dL] 3.9 g/dL (03/22/2012 05:50:00) 3.5 g/dL (03/20/2012 03:43:00) A/G Ratio [0.7-1.6] 0.8 (03/22/2012 05:50:00) 1.0 (03/20/2012 03:43:00) Calcium Lvl [8.5-10.5 mg/dL] 9.2 mg/dL (03/24/2012 06:00:00) 8.7 mg/dL (03/23/2012 05:20:00) 8.5 mg/dL (03/22/2012 05:50:00) ALT [0-65 U/L] 20 U/L (03/22/2012 05:50:00) 28 U/L (03/20/2012 03:43:00) AST [0-37 U/L] 8 U/L (03/22/2012 05:50:00) 16 U/L (03/20/2012 03:43:00) Alk Phos [39-136 U/L] 78 U/L (03/22/2012 05:50:00) 110 U/L (03/20/2012 03:43:00) Bili Total [0.2-1.3 mg/dL] 0.5 mg/dL (03/22/2012 05:50:00) 0.5 mg/dL (03/20/2012 03:43:00) Bili Direct [0.0-0.3 mg/dL] 0.1 mg/dL (03/20/2012 03:43:00) Bili Indirect [0.0-1.0 mg/dL] 0.4 mg/dL (03/20/2012 03:43:00) CHD Risk [3.90-5.80] 3.39 *LOW* (03/20/2012 03:43:00) Chol [120-200 mg/dL] 183 mg/dL (03/20/2012 03:43:00) Trig [0-200 mg/dL] 213 mg/dL *HI* (03/20/2012 03:43:00) HDL [>=35 mg/dL] 54 mg/dL (03/20/2012 03:43:00) LDL [0-129 mg/dL] 86 mg/dL (03/20/2012 03:43:00) Hgb A1C 8.4 % 7 *NA* (03/21/2012 05:19:00) 8.1 % 8 *NA* (03/20/2012 03:43:00) Vitamin B12 Lvl [211-911 pg/mL] 2647 pg/mL *HI* (03/20/2012 03:43:00) TSH [0.360-3.740 uIU/mL] 1.910 uIU/mL (03/20/2012 03:43:00) Jason Tr TND 2400 *NA* (03/22/2012 22:52:00) Jason Tr 13.8 ug/ml 9 *NA* (03/22/2012 22:52:00) pH Art [7.35-7.45] 7.39 (03/20/2012 09:15:00) pCO2 Art [35-45 mmHg] 43 mmHg (03/20/2012 09:15:00) pO2 Art [80-100 mmHg] 66 mmHg *LOW* (03/20/2012 09:15:00) HCO3 Art [22-26 mMol/L] 25 mMol/L (03/20/2012 09:15:00) BE Art [-2-2 mMol/L] 1 mMol/L (03/20/2012 09:15:00) O2 Sat Art [95.0-100.0 %] 91.6 % *LOW* (03/20/2012 09:15:00) Site Art Left Bra (03/20/2012 09:15:00) Temp Art 37.0 DegC *NA* (03/20/2012 09:15:00) Allens Art N/A (03/20/2012 09:15:00) FiO2 Art 21.0 *NA* (03/20/2012 09:15:00) 4Interpretive Data: Adult reference range values reflect the clinical guidelinesof the [employer]. 5Interpretive Data: Adult reference range values reflect the clinical guidelinesof the [place] [employer]. 6Interpretive Data: Adult reference range values reflect the clinical guidelinesof the [place] [employer]. 7Interpretive Data: HbA1C% eAG(mg/dL) Interpretation 6.0 126 Very good control 6.5 140 Very good control 7.0 154 Good Control 7.5 169 Good Control 8.0 183 Marginal Control, take action to lower 8.5 197 Marginal Control, take action to lower 9.0 212 Poor Control, take action to lower 9.5 226 Poor Control, take action to lower10.0 240 Poor Control, take action to lower 8Interpretive Data: HbA1C% eAG(mg/dL) Interpretation 6.0 126 Very good control 6.5 140 Very good control 7.0 154 Good Control 7.5 169 Good Control 8.0 183 Marginal Control, take action to lower 8.5 197 Marginal Control, take action to lower 9.0 212 Poor Control, take action to lower 9.5 226 Poor Control, take action to lower10.0 240 Poor Control, take action to lower 9Interpretive Data: Therapeutic Range: Trough: 10 - 20 ug/mL Peak: 20 - 40 ug/mL Potential Toxicity: >80 ug/mL HEMATOLOGY Most recent to oldest [Reference Range]: 1 2 3 WBC [3.7-10.4 K/CMM] 13.0 K/CMM *HI* (03/24/2012 06:00:00) 10.5 K/CMM *HI* (03/23/2012 05:20:00) 11.9 K/CMM *HI* (03/22/2012 05:50:00) RBC [4.20-5.40 M/CMM] 4.06 M/CMM *LOW* (03/24/2012 06:00:00) 3.76 M/CMM *LOW* (03/23/2012 05:20:00) 3.80 M/CMM *LOW* (03/22/2012 05:50:00) Hgb [12.0-16.0 g/dL] 12.2 g/dL (03/24/2012 06:00:00) 11.3 g/dL *LOW* (03/23/2012 05:20:00) 11.3 g/dL *LOW* (03/22/2012 05:50:00) Hct [36.0-48.0 %] 36.4 % (03/24/2012 06:00:00) 34.0 % *LOW* (03/23/2012 05:20:00) 34.3 % *LOW* (03/22/2012 05:50:00) MCV [81.0-99.0 fL] 89.8 fL (03/24/2012 06:00:00) 90.5 fL (03/23/2012 05:20:00) 90.1 fL (03/22/2012 05:50:00) MCH [27.0-31.0 pg] 30.0 pg (03/24/2012 06:00:00) 30.1 pg (03/23/2012 05:20:00) 29.7 pg (03/22/2012 05:50:00) MCHC [32.0-36.0 g/dL] 33.4 g/dL (03/24/2012 06:00:00) 33.3 g/dL (03/23/2012 05:20:00) 32.9 g/dL (03/22/2012 05:50:00) RDW [11.5-14.5 %] 14.9 % *HI* (03/24/2012 06:00:00) 14.8 % *HI* (03/23/2012 05:20:00) 15.2 % *HI* (03/22/2012 05:50:00) Platelet [133-450 K/CMM] 372 K/CMM (03/24/2012 06:00:00) 335 K/CMM (03/23/2012 05:20:00) 367 K/CMM (03/22/2012 05:50:00) MPV [7.4-10.4 fL] 8.0 fL (03/24/2012 06:00:00) 7.7 fL (03/23/2012 05:20:00) 7.6 fL (03/22/2012 05:50:00) Segs [45.0-75.0 %] 62.1 % (03/24/2012 06:00:00) 52.6 % (03/23/2012 05:20:00) 64.1 % (03/22/2012 05:50:00) Lymphocytes [20.0-40.0 %] 27.8 % (03/24/2012 06:00:00) 34.4 % (03/23/2012 05:20:00) 25.3 % (03/22/2012 05:50:00) Monocytes [2.0-12.0 %] 5.3 % (03/24/2012 06:00:00) 7.8 % (03/23/2012 05:20:00) 7.6 % (03/22/2012 05:50:00) Eosinophils [0.0-4.0 %] 4.5 % *HI* (03/24/2012 06:00:00) 4.7 % *HI* (03/23/2012 05:20:00) 2.7 % (03/22/2012 05:50:00) Basophils [0.0-1.0 %] 0.3 % (03/24/2012 06:00:00) 0.5 % (03/23/2012 05:20:00) 0.3 % (03/22/2012 05:50:00) Segs-Bands # [1.5-8.1 K/CMM] 8.1 K/CMM (03/24/2012 06:00:00) 5.5 K/CMM (03/23/2012 05:20:00) 7.6 K/CMM (03/22/2012 05:50:00) Lymphocytes # [1.0-5.5 K/CMM] 3.6 K/CMM (03/24/2012 06:00:00) 3.6 K/CMM (03/23/2012 05:20:00) 3.0 K/CMM (03/22/2012 05:50:00) Monocytes # [0.0-0.8 K/CMM] 0.7 K/CMM (03/24/2012 06:00:00) 0.8 K/CMM (03/23/2012 05:20:00) 0.9 K/CMM *HI* (03/22/2012 05:50:00) Eosinophils # [0.0-0.5 K/CMM] 0.6 K/CMM *HI* (03/24/2012 06:00:00) 0.5 K/CMM (03/23/2012 05:20:00) 0.3 K/CMM (03/22/2012 05:50:00) Basophils # [0.0-0.2 K/CMM] 0.0 K/CMM (03/24/2012 06:00:00) 0.1 K/CMM (03/23/2012 05:20:00) 0.0 K/CMM (03/22/2012 05:50:00) Sed Rate [0-20 mm/hr] 68 mm/hr *HI* (03/22/2012 05:50:00) 50 mm/hr *HI* (03/20/2012 03:43:00) PT [12.0-14.7 seconds] 12.1 seconds (03/20/2012 03:43:00) INR [0.85-1.17] 0.89 10 (03/20/2012 03:43:00) 10Interpretive Data: RECOMMENDED RANGES FOR PROTIME INR: 2.0-3.0 for most medical and surgical thromboembolic states. 2.5-3.5 for artificial heart valves and recurrent embolism.INR SHOULD BE USED ONLY FOR PATIENTS ON STABLE ANTICOAGULANT THERAPY. IMMUNOLOGY Most recent to oldest [Reference Range]: 1 2 3 RPR [Non Reactive] Non Reactive (03/20/2012 03:43:00) Prealbumin [18.0-45.0 mg/dL] 25.8 mg/dL (03/20/2012 03:43:00) CRP, High Sensitivity 26.8 mg/L 11 *NA* (03/22/2012 05:50:00) 11Interpretive Data: Low Risk: <1.0 mg/LAverage Risk: 1.0 - 3.0 mg/LHigh Risk: >3.0 mg/LInflammation: >10.0 mg/L
--- OUTSIDE RECORDS SUMMARY | 2020-06-25 15:54 | XMS REPORT | Summary of Care ---
Author Organization Unknown Address Unknown Phone Unavailable Encounter HQ Encntr_alexi(FIN) [id number] Date(s): 01/25/15 - 01/25/15 [facility] Outpatient Imaging - [address] [address]- [facility] [phone] Discharge Disposition: Home Physician Attending: Nelson Godoy [...]
--- OUTSIDE RECORDS SUMMARY | 2020-06-25 15:54 | XMS REPORT | Summary of Care ---
Author Author [facility] Organization [facility] Address Unknown Phone Unavailable Encounter HQ Delmer(FIN) [id number] Date(s): 03/26/20 - 04/24/20 [facility] [address] [place] [address] [phone] Discharge Disposition: Home or Self Care Attending Physician: Kavin Chu MD Referring Physician: Kavin Chu MD Vital Signs No data available for this section Problem List Condition Effective Dates Status Health Status Informan t Cholecystectomy(Conf Active irmed) DM - Diabetes Active mellitus(Confirmed) Femoral hernia1, 2 11/21/08 Active Generalized Active abdominal pain3, 4 Headache5, 6 Active HTN - Active Hypertension(Confirm ed) Hyperlipidemia(Confi Active rmed) Hysterectomy(Confirm Active ed) OM - Active Osteomyelitis(Confir med) Vaginal enterocele7, Active 8 1Data migrated from [employer] on 04/09/15. 2Data migrated from [employer] on 04/09/15. 3Data migrated from [employer] on 04/09/15. 4Data migrated from [employer] on 04/09/15. 5Data migrated from [employer] on 04/09/15. 6Data migrated from [employer] on 04/09/15. 7Data migrated from [employer] on 04/09/15. 8Data migrated from [employer] on 04/09/15. Allergies, Adverse Reactions, Alerts No Known Medication Allergies Medications No data available for this section Results No data available for this section Immunizations No data available for this section Procedures No data available for this section Social History Social History Type Response Assessment and Plan No data available for this section
--- OUTSIDE RECORDS SUMMARY | 2020-06-25 15:54 | XMS REPORT | Continuity of Care Document ---
Author Author Wandrian, KORINA ARRIAZA Organization [employer] Address Unknown Phone Unavailable Care Team Providers Care Bellows Tester Name Role Phone [facility] [employer] Unavailable Un available Problems Problem Status Onset Date Classification Date Reported Comments Source ULCER MASS ON LEFT FOOT Active 03/14/2020 [facility] 443.9 - PERIPH VASCULAR Active 01/09/2015 [facility] [place] BONE INFECTION ON TOES Active 03/18/2012 [facility] OSTEOMYELITIS LEFT 2ND TOE Act janusz 03/18/2012 [facility] Femoral hernia (disorder) Acti ve 11/21/2008 Problem 04/26/2020 Data migrated from [email or web address] on . Data migrated from [employer] on 04/09/15. [facility] Cholecystectomy Active Problem 06/03/2013 [facility] [place] ast DM - Diabetes mellitus Active Problem 06/03/2013 [facility] [place] ast HTN - Hypertension Active Problem 06/03/2013 [facility] [place] Hyperlipidemia Active Problem 06/03/2013 [facility] [place] Hysterectomy Active Problem 06/03/2013 [facility] [place] OM - Osteomyelitis Active Problem 06/03/2013 [facility] [place] [place] [facility] HTN - Hypertension Active Problem 03/26/2012 [facility] Cholecystectomy (procedure) Ac tive Problem [facility] [place] Diabetes mellitus (disorder) A ctive Problem [facility] [place] Generalized abdominal pain (finding) Active Problem Data migrated from [employer] on . Data migrated from [employer] on 04/09/15. [facility] Headache (finding) Active Problem 04/26/2020 Data migrated from [employer] on . Data migrated from [email or web address] on 04/09/15. [facility] Hypertensive disorder, systemic arterial (disorder) Active Problem 04/26/2020 [facility], [facility] [place] Hyperlipidemia (disorder) Acti ve Problem [facility], [facility] [place] Hysterectomy (procedure) Active Problem 04/26/2020 [facility], [facility] [place] Osteomyelitis (disorder) Active Problem 04/26/2020 [facility], [facility] [place] Vaginal enterocele (disorder) Active Problem Data migrated from [employer] on . Data migrated from [employer] on 04/09/15. [facility] AC OSTEOMYELITIS-UNSPEC Active [facility] Medications Medication Details Route Status Patient Instructions Ordering Provider Order Date Source Bliss 10/325 oral tablet 1-2 t ab, PO, Q4-6H, PRN, 30 tab, 1, 1, Pain, Substitution Allowed, Maintenance PO Active Masoud 03/24/2012 [facility] Augmentin 875 mg oral tablet 1 tab, PO, BID, 20 tab, Substitution Allowed, Maintenance PO Active Sheb ib 03/23/2012 [facility] Percocet 5/325 oral tablet 1 t ab, Route: PO, Drug Form: TAB, Q6H, PRN Pain, Start date: 03/22/12 22:35:00, Duration: 30 day, Stop date: 04/21/12 22:34:00 PO No Longer Active [place] 03/23/2012 [facility] Saline Flush 0.9% 5 ml, Route: IVP, Drug Form: INJ, Q12H, Start date: 03/21/12 21:00:00, Duration: 30 day, Stop date: 04/20/12 9:00:00 IVP No Longer Active [place] 03/22/2012 [facility] Saline Flush 0.9% 5 ml, Route: IVP, Drug Form: INJ, PRN, PRN Line Flush, Start date: 03/21/12 12:22:00, Duration: 30 day, Stop date: 04/20/12 12:21:00 IVP No Longer Active [place] 03/21/2012 [facility] vancomycin 1 gm, 250 mL, Route : IVPB, Drug form: INJ, [id number], Start date: 03/21/12 12:00:00, Duration: 30 day, Stop date: 04/20/12 0:00:00 IVPB No Longer Active [place] 03/21/2012 [facility] Midamor 5 mg, 1 tab, Route: PO , Drug form: TAB, Daily, Start date: 03/19/12 9:00:00, Duration: 30 day, Stop date: 04/17/12 9:00:00 PO No Longer Active Masoud03/08 [facility] Levemir FlexPen 12 unit, 0.12 mL, Route: SUB-Q, Drug form: INJ, BID, Start date: 03/19/12 9:00:00, Duration: 30 day, Stop date: 04/17/12 17:00:00 SUB-Q No Longer Active 03/19/2012 [facility] simvastatin 20 mg, 1 tab, Rout e: PO, Drug form: TAB, QAM, Start date: 03/19/12 9:00:00, Duration: 30 day, Stop date: 04/17/12 9:00:00 PO No Longer Active Masoud03/08 [facility] insulin glargine 12 unit, Rout e: SUB-Q, Drug form: SOLN, BID, Start date: 03/19/12 9:00:00, Duration: 30 day, Stop date: 04/17/12 17:00:00 SUB-Q No Longer Active Mas[place] 03/19/2012 [facility] amiloride-hydrochlorothiazide 5 mg-50 mg oral tablet 1 tab, Route: PO, Drug Form: TAB, Daily, Start date: 03/19/12 9:00:00, Duration: 30 day, Stop date: 04/17/12 9:00:00 PO No Longer Active [place] 03/19/2012 [facility] enalapril 10 mg, 1 tab, Route: PO, Drug form: TAB, Daily, Start date: 03/19/12 9:00:00, Duration: 30 day, Stop date: 04/17/12 9:00:00 PO No Longer Active [place] 03/19/2012 [facility] hydrochlorothiazide 50 mg, 1 t ab, Route: PO, Drug form: TAB, Daily, Start date: 03/19/12 9:00:00, Duration: 30 day, Stop date: 04/17/12 9:00:00 PO No Longer Active [place] 03/19/2012 [facility] metFORmin 500 mg oral tablet 5 00 mg, 1 tab, Route: PO, Drug form: TAB, BID-Meals, Start date: 03/19/12 8:00:00, Duration: 30 day, Stop date: 04/17/12 17:00:00 PO No Longer Active 03/19/2012 [facility] glyBURIDE 5 mg, 1 tab, Route: PO, Drug form: TAB, BID- Meals, Start date: 03/19/12 8:00:00, Duration: 30 day, Stop date: 04/17/12 17:00:00 PO No Longer Active 03/19/2012 [facility] Zosyn 3.375 gm, 100 mL, Route: IVPB, Drug form: PDR/INJ, ABXQ6H, Priority: Routine, Start date: 03/19/12 2:00:00, Duration: 30 day, Stop date: 04/17/12 20:00:00 IVPB No Longer Active 03/19/2012 [facility] insulin aspart 10 unit, 0.1 mL , Route: SUB-Q, Drug form: SOLN, TID-Before Meals, PRN Blood Glucose Results, Start date: 03/18/12 22:35:00, Duration: 30 day, Stop date: 04/17/12 22:34:00 SUB-Q No Longer Active 03/19/2012 [facility] Dextrose 50% Syringe 12.5 gm, 25 mL, Route: IVP, Drug Form: INJ, PRN, PRN Blood Glucose Results, Start date: 03/18/12 22:35:00, Duration: 30 day, Stop date: 04/17/12 22:34:00 IVP No Longer Active 03/19/2012 [facility] glucagon 1 mg, Route: IM, Drug form: PDR/INJ, PRN, PRN Blood Glucose Results, Start date: 03/18/12 22:35:00, Duration: 30 day, Stop date: 04/17/12 22:34:00 IM No Longer Active 03/19/2012 [facility] ondansetron 4 mg, 1 tab, Route : PO, Drug form: TAB, Q6H, PRN Nausea & Vomiting, Start date: 03/18/12 22:34:00, Duration: 30 day, Stop date: 04/17/12 22:33:00 PO No Longer Active [place] 03/19/2012 [facility] acetaminophen-hydrocodone 325 mg-5 mg oral tablet 2 tab, Route: PO, Drug Form: TAB, Q4H, PRN Pain Score 4-6, Start date: 03/18/12 22:34:00, Duration: 30 day, Stop date: 04/17/12 22:33:00 PO No Longer Active [place] 03/19/2012 [facility] Lantus Solostar Pen 100 units/mL subcutaneous solution 12 unit, SUB-Q, BID, Substitution Allowed SUB-Q Active 03/19/2012 [facility] glyBURIDE 5 mg oral tablet 5 m g, 1 tab, PO, BID, Substitution Allowed PO Active 03/19/2012 [facility] metFORmin 500 mg oral tablet 5 00 mg, 1 tab, PO, BID, Substitution Allowed PO Active 03/19/2012 [facility] simvastatin 20 mg, PO, QAM, Nunez bstitution Allowed PO Active 03/19/2012 [facility] amiloride-hydrochlorothiazide 5 mg-50 mg oral tablet 1 tab, PO, Daily, Substitution Allowed, Maintenance PO Active 03/19/2012 [facility] enalapril 10 mg oral tablet 10 mg, 1 tab, PO, Daily, Substitution Allowed PO Active 03/19/2012 [facility] Zosyn 3.375 gm, Route: IVPB, O NCE, Priority: STAT, Start date: 03/18/12 19:57:00, Stop date: 03/18/12 19:57:00 IVPB No Longer Active [place] 03/19/2012 [facility] acetaminophen-hydrocodone 325 mg-5 mg oral tablet 1 tab, Route: PO, Drug Form: TAB, ONCE, Start date: 03/18/12 19:46:00, Stop date: 03/18/12 19:46:00 PO No Longer Active [place] 03/19/2012 [facility] Allergies, Adverse Reactions, Alerts Substance Category Reaction Severity Reaction type Status Date Reported Comments Source No Known Medication Allergies Assertion Drug aller gy [facility] Immunizations No Data Provided for This Section Results Order Name Results Value Reference Range Date Interpretation Comments Source BEDSIDE GLUCOSE TESTING Gluc POC Lif scn 170 70 - 99 03/24/2012 [place] <sup>1</sup>Interpretive Data: Upper Reportable Limit: 200 mg/dL. [facility] BEDSIDE GLUCOSE TESTING Gluc POC Lif scn 223 70 - 99 03/24/2012 [place] <sup>2</sup>Interpretive Data: Upper Reportable Limit: 200 mg/dL. [facility] BEDSIDE GLUCOSE TESTING Gluc POC Lif scn 152 70 - 99 03/24/2012 [place] <sup>3</sup>Interpretive Data: Upper Reportable Limit: 200 mg/dL. [facility] CHEMISTRY CO2 25 24 - 32 03/24/2012 Normal [facility] CHEMISTRY Calcium Lvl 9.2 8.5 - 10.5 03/24/2012 Normal [facility] CHEMISTRY Glucose Lvl 144 70 - 99 03/24/2012 [place] <sup>4</sup>Interpretive Data: Adult ref erence range values reflect the clinical guidelines of the [employer]. [facility] CHEMISTRY BUN 11 7 - 22 03/24/2012 Normal [facility] CHEMISTRY Creatinine Lvl 1.1 0.5 - 1.4 03/24/2012 Normal [facility] CHEMISTRY Chloride Lvl 101 95 - 109 03/24/2012 Normal [facility] CHEMISTRY Sodium Lvl 137 135 - 145 03/24/2012 Normal [facility] CHEMISTRY Potassium Lvl 3.7 3.5 - 5.1 03/24/2012 Normal [facility] CHEMISTRY AGAP 14.7 10.0 - 20.0 03/24/2012 Normal [facility] HEMATOLOGY Lymphocytes # 3.6 1.0 - 5.5 03/24/2012 Normal [facility] HEMATOLOGY Eosinophils 4.5 0.0 - 4.0 03/24/2012 [place] [facility] HEMATOLOGY Segs-Bands # 8.1 1.5 - 8.1 03/24/2012 Normal [facility] HEMATOLOGY Basophils 0.3 0.0 - 1.0 03/24/2012 Normal [facility] HEMATOLOGY Monocytes # 0.7 0.0 - 0.8 03/24/2012 Normal [facility] HEMATOLOGY Monocytes 5.3 2.0 - 12.0 03/24/2012 Normal [facility] HEMATOLOGY Segs 62.1 45.0 - 75.0 03/24/2012 Normal [facility] HEMATOLOGY Lymphocytes 27.8 20.0 - 40.0 03/24/2012 Normal [facility] HEMATOLOGY Eosinophils # 0.6 0.0 - 0.5 03/24/2012 [facility] HEMATOLOGY Basophils # 0.0 0.0 - 0.2 03/24/2012 Normal [facility] HEMATOLOGY Hgb 12.2 12.0 - 16.0 03/24/2012 Normal [facility] HEMATOLOGY Hct 36.4 36.0 - 48.0 03/24/2012 Normal [facility] HEMATOLOGY MCV 89.8 81.0 - 99.0 03/24/2012 Normal [facility] HEMATOLOGY MCH 30.0 27.0 - 31.0 03/24/2012 Normal [facility] HEMATOLOGY RBC 4.06 4.20 - 5.40 03/24/2012 LOW [facility] HEMATOLOGY WBC 13.0 3.7 - 10.4 03/24/2012 [place] [facility] HEMATOLOGY MCHC 33.4 32.0 - 36.0 03/24/2012 Normal [facility] HEMATOLOGY MPV 8.0 7.4 - 10.4 03/24/2012 Normal [facility] HEMATOLOGY Platelet 372 133 - 450 03/24/2012 Normal [facility] HEMATOLOGY RDW 14.9 11.5 - 14.5 03/24/2012 [facility] BEDSIDE GLUCOSE TESTING Comment1 Notify RN/ 03/24/2012 NA [facility] BEDSIDE GLUCOSE TESTING Comment1 Notify RN/MD 03/23/2012 NA [facility] BEDSIDE GLUCOSE TESTING Comment1 Notify RN/MD 03/23/2012 [facility] CHEMISTRY Calcium Lvl 8.7 8.5 - 10.5 03/23/2012 Normal [facility] CHEMISTRY Potassium Lvl 3.6 3.5 - 5.1 03/23/2012 Normal [facility] CHEMISTRY Sodium Lvl 139 135 - 145 03/23/2012 Normal [facility] CHEMISTRY Chloride Lvl 104 95 - 109 03/23/2012 Normal [facility] CHEMISTRY CO2 27 24 - 32 03/23/2012 Normal [facility] CHEMISTRY Glucose Lvl 145 70 - 99 03/23/2012 [place] <sup>5</sup>Interpretive Data: Adult ref erence range values reflect the clinical guidelines of the [employer]. [facility] CHEMISTRY BUN 11 7 - 22 03/23/2012 Normal [facility] CHEMISTRY Creatinine Lvl 1.0 0.5 - 1.4 03/23/2012 Normal [facility] CHEMISTRY AGAP 11.6 10.0 - 20.0 03/23/2012 Normal [facility] HEMATOLOGY Basophils # 0.1 0.0 - 0.2 03/23/2012 Normal [facility] HEMATOLOGY Eosinophils # 0.5 0.0 - 0.5 03/23/2012 Normal [facility] HEMATOLOGY Lymphocytes # 3.6 1.0 - 5.5 03/23/2012 Normal [facility] HEMATOLOGY Monocytes # 0.8 0.0 - 0.8 03/23/2012 Normal [facility] HEMATOLOGY Eosinophils 4.7 0.0 - 4.0 03/23/2012 [place] [facility] HEMATOLOGY Basophils 0.5 0.0 - 1.0 03/23/2012 Normal [facility] HEMATOLOGY Segs-Bands # 5.5 1.5 - 8.1 03/23/2012 Normal [facility] HEMATOLOGY Segs 52.6 45.0 - 75.0 03/23/2012 Normal [facility] HEMATOLOGY Lymphocytes 34.4 20.0 - 40.0 03/23/2012 Normal [facility] HEMATOLOGY Monocytes 7.8 2.0 - 12.0 03/23/2012 Normal [facility] HEMATOLOGY MPV 7.7 7.4 - 10.4 03/23/2012 Normal [facility] HEMATOLOGY RDW 14.8 11.5 - 14.5 03/23/2012 [facility] HEMATOLOGY Platelet 335 133 - 450 03/23/2012 Normal [facility] HEMATOLOGY MCV 90.5 81.0 - 99.0 03/23/2012 Normal [facility] HEMATOLOGY MCH 30.1 27.0 - 31.0 03/23/2012 Normal [facility] HEMATOLOGY MCHC 33.3 32.0 - 36.0 03/23/2012 Normal [facility] HEMATOLOGY WBC 10.5 3.7 - 10.4 03/23/2012 [facility] HEMATOLOGY Hct 34.0 36.0 - 48.0 03/23/2012 LOW [facility] HEMATOLOGY Hgb 11.3 12.0 - 16.0 03/23/2012 LOW [facility] HEMATOLOGY RBC 3.76 4.20 - 5.40 03/23/2012 LOW [facility] CHEMISTRY Vanco Tr TND 2400 03/23/2012 NA [facility] CHEMISTRY Vanco Tr 13.8 03/23/2012 NA <sup>9</sup>Interpretive Data: Therapeutic Range: Trough: 10 - 20 ug/mL Peak: 20 - 40 ug/mL Potential Toxicity: >80 ug/mL [facility] CHEMISTRY AGAP 10.8 10.0 - 20.0 03/22/2012 Normal [facility] CHEMISTRY B/C Ratio 9 6 - 25 03/22/2012 Normal [facility] CHEMISTRY Globulin 3.9 2.0 - 4.0 03/22/2012 Normal [facility] CHEMISTRY A/G Ratio 0.8 0.7 - 1.6 03/22/2012 Normal [facility] CHEMISTRY Calcium Lvl 8.5 8.5 - 10.5 03/22/2012 Normal [facility] CHEMISTRY Albumin Lvl 3.0 3.5 - 5.0 03/22/2012 LOW [facility] CHEMISTRY CO2 27 24 - 32 03/22/2012 Normal [facility] CHEMISTRY Chloride Lvl 104 95 - 109 03/22/2012 Normal [facility] CHEMISTRY BUN 10 7 - 22 03/22/2012 Normal [facility] CHEMISTRY Creatinine Lvl 1.1 0.5 - 1.4 03/22/2012 Normal [facility] CHEMISTRY Sodium Lvl 138 135 - 145 03/22/2012 Normal [facility] CHEMISTRY Potassium Lvl 3.8 3.5 - 5.1 03/22/2012 Normal [facility] CHEMISTRY Glucose Lvl 148 70 - 99 03/22/2012 [place] <sup>6</sup>Interpretive Data: Adult ref erence range values reflect the clinical guidelines of the [employer]. [facility] CHEMISTRY Bili Total 0.5 0.2 - 1.3 03/22/2012 Normal [facility] CHEMISTRY Alk Phos 78 39 - 136 03/22/2012 Normal [facility] CHEMISTRY AST 8 0 - 37 03/22/2012 Normal [facility] CHEMISTRY ALT 20 0 - 65 03/22/2012 Normal [facility] CHEMISTRY Total Protein 6.9 6.4 - 8.4 03/22/2012 Normal [facility] HEMATOLOGY Sed Rate 68 0 - 20 03/22/2012 [facility] HEMATOLOGY Platelet 367 133 - 450 03/22/2012 Normal [facility] HEMATOLOGY MPV 7.6 7.4 - 10.4 03/22/2012 Normal [facility] HEMATOLOGY RDW 15.2 11.5 - 14.5 03/22/2012 [facility] HEMATOLOGY Hgb 11.3 12.0 - 16.0 03/22/2012 LOW [facility] HEMATOLOGY Hct 34.3 36.0 - 48.0 03/22/2012 LOW [facility] HEMATOLOGY MCV 90.1 81.0 - 99.0 03/22/2012 Normal [facility] HEMATOLOGY MCH 29.7 27.0 - 31.0 03/22/2012 Normal [facility] HEMATOLOGY MCHC 32.9 32.0 - 36.0 03/22/2012 Normal [facility] HEMATOLOGY RBC 3.80 4.20 - 5.40 03/22/2012 LOW [facility] HEMATOLOGY WBC 11.9 3.7 - 10.4 03/22/2012 [facility] HEMATOLOGY Monocytes 7.6 2.0 - 12.0 03/22/2012 Normal [facility] HEMATOLOGY Lymphocytes 25.3 20.0 - 40.0 03/22/2012 Normal [facility] HEMATOLOGY Segs 64.1 45.0 - 75.0 03/22/2012 Normal [facility] HEMATOLOGY Monocytes # 0.9 0.0 - 0.8 03/22/2012 [place] [facility] HEMATOLOGY Basophils 0.3 0.0 - 1.0 03/22/2012 Normal [facility] HEMATOLOGY Lymphocytes # 3.0 1.0 - 5.5 03/22/2012 Normal [facility] HEMATOLOGY Eosinophils 2.7 0.0 - 4.0 03/22/2012 Normal [facility] HEMATOLOGY Segs-Bands # 7.6 1.5 - 8.1 03/22/2012 Normal [facility] HEMATOLOGY Eosinophils # 0.3 0.0 - 0.5 03/22/2012 Normal [facility] HEMATOLOGY Basophils # 0.0 0.0 - 0.2 03/22/2012 Normal [facility] IMMUNOLOGY CRP, High Sensitivity 26. 8 03/22/2012 NA <sup>11</sup>Interpretive Data: Low Risk : <1.0 mg/L Average Risk: 1.0 - 3.0 mg/L High Risk: >3.0 mg/L Inflammation: >10.0 mg/L [facility] BEDSIDE GLUCOSE TESTING Comment2 Notify RN/ 03/22/2012 NA [facility] Hgb A1C 8.4 03/21/2012 NA <sup>7</sup>Interpretive Data: HbA1C% eAG(mg/dL) Interpretation 6.0 126 Very good control 6.5 140 Very good control 7.0 154 Good Control 7.5 169 Good Control 8.0 183 Marginal Control, take action to lower 8.5 197 Marginal Control, take action to lower 9.0 212 Poor Control, take action to lower 9.5 226 Poor Control, take action to lower 10.0 240 Poor Control, take action to lower [facility] CHEMISTRY Temp Art 37.0 03/20/2012 NA [facility] Site Art Left B ra (03/20/2012 09:15:00) 03/20/2012 Normal [facility] CHEMISTRY FiO2 Art 21.0 03/20/2012 NA [facility] CHEMISTRY Allens Art N/A (03/20/2012 09:15:00) 03/20/2012 Normal [facility] CHEMISTRY pH Art 7.39 7.35 - 7.45 03/20/2012 Normal [facility] CHEMISTRY pO2 Art 66 80 - 100 03/20/2012 LOW [facility] CHEMISTRY HCO3 Art 25 22 - 26 03/20/2012 Normal [facility] CHEMISTRY pCO2 Art 43 35 - 45 03/20/2012 Normal [facility] CHEMISTRY BE Art 1 -2-2 - 2 03/20/2012 Normal [facility] CHEMISTRY O2 Sat Art 91.6 95.0 - 100.0 03/20/2012 LOW [facility] CHEMISTRY TSH 1.910 0.360 - 3.740 03/20/2012 Normal [facility] CHEMISTRY Hgb A1C 8.1 03/20/2012 NA <sup>8</sup>Interpretive Data: HbA1C% eAG(mg/dL) Interpretation 6.0 126 Very good control 6.5 140 Very good control 7.0 154 Good Control 7.5 169 Good Control 8.0 183 Marginal Control, take action to lower 8.5 197 Marginal Control, take action to lower 9.0 212 Poor Control, take action to lower 9.5 226 Poor Control, take action to lower 10.0 240 Poor Control, take action to lower [facility] CHEMISTRY Alk Phos 110 39 - 136 03/20/2012 Normal [facility] CHEMISTRY AST 16 0 - 37 03/20/2012 Normal [facility] CHEMISTRY Bili Direct 0.1 0.0 - 0.3 03/20/2012 Normal [facility] CHEMISTRY Bili Total 0.5 0.2 - 1.3 03/20/2012 Normal [facility] CHEMISTRY Albumin Lvl 3.5 3.5 - 5.0 03/20/2012 Normal [facility] CHEMISTRY ALT 28 0 - 65 03/20/2012 Normal [facility] CHEMISTRY Total Protein 7.0 6.4 - 8.4 03/20/2012 Normal [facility] CHEMISTRY Bili Indirect 0.4 0.0 - 1.0 03/20/2012 Normal [facility] CHEMISTRY A/G Ratio 1.0 0.7 - 1.6 03/20/2012 Normal [facility] CHEMISTRY Globulin 3.5 2.0 - 4.0 03/20/2012 Normal [facility] CHEMISTRY CHD Risk 3.39 3.90 - 5.80 03/20/2012 LOW [facility] CHEMISTRY LDL 86 0 - 129 03/20/2012 Normal [facility] CHEMISTRY HDL 54 >=35 03/20/2012 Normal [facility] CHEMISTRY Trig 213 0 - 200 03/20/2012 HI [facility] CHEMISTRY Chol 183 120 - 200 03/20/2012 Normal [facility] CHEMISTRY Vitamin B12 Lvl 2647 211 - 911 03/20/2012 [facility] HEMATOLOGY INR 0.89 0.85 - 1.17 03/20/2012 Normal <sup>10</sup>Interpretive Data: RECOMMEN DED RANGES FOR PROTIME INR: 2.0-3.0 for most medical and surgical thromboembolic states. 2.5-3.5 for artificial heart valves and recurrent embolism. INR SHOULD BE USED ONLY FOR PATIENTS ON STABLE ANTICOAGULANT THERAPY. [facility] HEMATOLOGY PT 12.1 12.0 - 14.7 03/20/2012 Normal [facility] HEMATOLOGY Sed Rate 50 0 - 20 03/20/2012 [facility] IMMUNOLOGY Prealbumin 25.8 18.0 - 45.0 03/20/2012 Normal [facility] IMMUNOLOGY RPR Non R eactive (03/20/2012 03:43:00) Non Re active 03/20/2012 Normal [facility] BEDSIDE GLUCOSE TESTING Comment2 Notify RN/MD 03/19/2012 NA [facility] Pathology Reports No Data Provided for This Section Diagnostic Reports Report Value Date Source Foot series DX EXAM: XR RIGHT FOOT 3 VIEWS EXAM: XR LEFT FOOT 3 VIEWS DATE: 03/26/2020 10:18 CDT INDICATION: - DIABETIC FOOT ULCERS, BOTH FEET; TYPE 2 DIABETES MELLITUS WITH FOOT ULCER COMPARISON: None TECHNIQUE: AP, lateral and oblique radiographs of the foot FINDINGS: Right foot: Chronic chronic erosion along the great toe distal metatarsal head and neck as well as the base of the proximal phalanx likely Charcot joint. Subluxation of the MTP joint of the great toe also noted. Arthritic changes also visualized within the the MCP joints of the second and third toes with partial subluxation. Mild erosions seen within the base of the proximal phalanges of the second toe. No evidence of acute cortical destruction or signs of osseous bony abnormality to suggest active osteomyelitis. Soft tissue ulceration underlying the distal head and neck of the great toe metatarsal without adjacent osseous abnormality. Prior instrumentation along the distal fibula. Left foot: Complete collapse of the midfoot arch consistent with Charcot joint. There is also severe Charcot joint changes along the hindfoot and tibiotalar joint. Remodeling and partial erosions of the navicular as well as cuneiforms noted. Great toe MTP joint degenerative changes visualized without erosions. Remaining MTP joints are intact. Soft tissue density underlying the midfoot visualized without cortical destruction in the adjacent bone. IMPRESSION: 1. No changes of osteomyelitis in the ri ght or left foot. 2. Chronic changes along the great toe M TP joint on the right side with adjacent soft tissue ulceration but no acute osseous changes. 3. Complete collapse of the left plantar arch with severe chronic erosions along the midfoot and tarsal bones. 03/26/2020 [facility] Foot series DX EXAM: XR RIGHT FOOT 3 VIEWS EXAM: XR LEFT FOOT 3 VIEWS DATE: 03/26/2020 10:18 CDT INDICATION: - DIABETIC FOOT ULCERS, BOTH FEET; TYPE 2 DIABETES MELLITUS WITH FOOT ULCER COMPARISON: None TECHNIQUE: AP, lateral and oblique radiographs of the foot FINDINGS: Right foot: Chronic chronic erosion along the great toe distal metatarsal head and neck as well as the base of the proximal phalanx likely Charcot joint. Subluxation of the MTP joint of the great toe also noted. Arthritic changes also visualized within the the MCP joints of the second and third toes with partial subluxation. Mild erosions seen within the base of the proximal phalanges of the second toe. No evidence of acute cortical destruction or signs of osseous bony abnormality to suggest active osteomyelitis. Soft tissue ulceration underlying the distal head and neck of the great toe metatarsal without adjacent osseous abnormality. Prior instrumentation along the distal fibula. Left foot: Complete collapse of the midfoot arch consistent with Charcot joint. There is also severe Charcot joint changes along the hindfoot and tibiotalar joint. Remodeling and partial erosions of the navicular as well as cuneiforms noted. Great toe MTP joint degenerative changes visualized without erosions. Remaining MTP joints are intact. Soft tissue density underlying the midfoot visualized without cortical destruction in the adjacent bone. IMPRESSION: 1. No changes of osteomyelitis in the ri ght or left foot. 2. Chronic changes along the great toe M TP joint on the right side with adjacent soft tissue ulceration but no acute osseous changes. 3. Complete collapse of the left plantar arch with severe chronic erosions along the midfoot and tarsal bones. 03/26/2020 [facility] Ext Lower Arterial Doppler bilat US EXAM: BILATERAL LOWER EXTREMITY ARTERIAL DOPPLER DATE: Jan 25, 2015 02:18:43 PM . CLINICAL INDICATION: a disease. COMPARISON: None TECHNIQUE: Color and spectral Doppler examination of the lower extremity arteries was performed. FINDINGS: No significant calcified plaque is identified Right Extremity Waveforms: Common Femoral Artery: Triphasic, 133 cm/sec Superficial Femoral Artery: Triphasic, 112 cm/sec Popliteal Artery: Triphasic, 44 cm/sec Anterior tibial artery triphasic, 32 cm/sec Posterior Tibialis Artery: Triphasic, 71 cm/sec Dorsalis Pedis Artery: Biphasic, 15 cm/sec Left Extremity Waveforms: Common Femoral Artery: Triphasic, 71 cm/sec Superficial Femoral Artery: Triphasic, 72-109 cm/sec Popliteal Artery: Triphasic, 79 cm/sec Anterior tibial artery triphasic, 69 cm/sec Posterior Tibialis Artery: Triphasic, 68 cm/sec Dorsalis Pedis Artery: Biphasic, 58 cm/sec IMPRESSION: Normal examination, without evidence of peripheral vascular disease affecting the lower extremities. 01/25/2015 [facility] Abdomen/Pelvis w IV contrast CT HISTORY: Abdominal pain TECHNIQUE: Multidetector axial images obtained through the abdomen and pelvis with the use of IV and enteric contrast. Multiplanar reformats obtained. DLP:1810.40 COMPARISON: CT abdomen pelvis of 12/23/2007 FINDINGS: Visualized lung bases are clear. There is diffuse hepatic steatosis. The spleen, adrenals, kidneys, and pancreas are normal. The gallbladder is surgically absent. The abdominal aorta is normal in caliber. Mild atherosclerotic disease. No abdominal or pelvic adenopathy. Small hiatal hernia seen. Bowel loops are normal in caliber without evidence of obstruction. Prominent fatty ileocecal valve is noted. Scattered colonic diverticulosis without imaging evidence for acute diverticulitis. No free fluid in the abdomen or pelvis. The uterus is surgically absent. The urinary bladder is within normal limits. Mild multilevel degenerative disc disease. No suspicious osseous lesions. IMPRESSION: 1. Diffuse hepatic steatosis. 2. Colonic diverticulosis without imagin g evidence for acute diverticulitis. 01/14/2015 [facility] [place] Pelvis US PELVIC SONOGRAM CLINICAL HISTORY: Pelvic pain. COMPARISON IMAGIN05/01/2009 sonography. TECHNIQUE: Real time sonography was performed by an anesthesiology technologist, and quality control representative static images were submitted for review. FINDINGS: Uterus and ovaries are not identified. The bladder is sonographically unremarkable. No suspicious solid or cystic abnormality is identified. There is no obvious free fluid in the pelvis. IMPRESSION: No significant abnormality. 10/17/2013 [facility] [place] [facility] Screening Jacob MA - DIGITAL MAMMO SCREENING JACOB MA BILATERAL DIGITAL SCREENING MAMMOGRAM WITH CAD: 06/01/2013 CLINICAL: Screening. Current study was evaluated with a Computer Aided Detection (CAD) system. No prior exams were available for comparison. The tissue of both breasts is predominantly fatty. No significant masses, calcifications, or other findings are seen in either breast. IMPRESSION: NEGATIVE There is no mammographic evidence of malignancy. A screening mammogram in one year is recommended. Dr. Shante Wang D.O. hht/penrad:06/09/2013 16:52:47 Block Tester: Fred Pedroza [facility] letter sent: Normal exam Mammogram BI-RADS: 1 Negative 06/01/2013 [facility] sacrum AP and Lat Histor y: Pain, fell. Comparison: None. Findings: There is no definite evidence of acute bony abnormality. There is advanced degenerative changes of the lower lumbar spine. Impression: 1. No evidence of acute bony abnormality . 06/01/2013 [facility] lumbar minimum 4 views H istory: Lower back pain. Comparison: None. Findings: There is mild L-spine levoscoliosis with the apex at the L2/3 disc. At the L1/2 level, there is moderate to marked degenerative disc disease and at least mild facet degenerative changes. At the L2/3 level, there is mild to moderate predominately right-sided degenerative disc disease and at least mild facet degenerative changes. At the L3/4 level, there is mild to moderate predominately right-sided degenerative disc disease and at least mild to moderate facet degenerative changes, right side greater than left. At the L4/5 level, there is mild to moderate predominately right-sided degenerative disc disease and marked facet degenerative changes, right side greater than left. At the L5/S1 level, there is mild to moderate degenerative disc disease and at least moderate facet degenerative changes, right side greater than left. There is no fracture, pars defect or subluxation. Incidental note is made of 2 adjacent surgical clip in the right upper quadrant suggesting cholecystectomy. Impression: 1. Mild L-spine levoscoliosis. 2. Advanced multilevel L-spine degenerat janusz changes as described. See text. 06/01/2013 [facility] Consultation Notes No Data Provided for This Section Discharge Summaries No Data Provided for This Section History and Physicals No Data Provided for This Section Vital Signs Vital Sign Value Date Comments Source Diastolic (mm Hg) 67 03/24/2012 [facility] Systolic (mm Hg) 96 03/24/2012 [facility] Rate 16 03/24/2012 [facility] Heart Rate 96 03/24/2012 [facility] Temperature Oral (F) 98.9 F 03/24/2012 [facility] Systolic (mm Hg) 107 03/24/2012 [facility] Diastolic (mm Hg) 74 03/24/2012 [facility] Temperature Oral (F) 98.0 F 03/24/2012 [facility] Heart Rate 98 03/24/2012 [facility] Rate 16 03/24/2012 [facility] Heart Rate 87 03/24/2012 [facility] Temperature Oral (F) 98.0 F 03/24/2012 [facility] Respitory Rate 16 03/24/2012 [facility] Systolic (mm Hg) 109 03/24/2012 [facility] Diastolic (mm Hg) 67 03/24/2012 [facility] Height 162.56 cm 03/19/2012 [facility] Height 165.10 cm 03/18/2012 [facility] Weight 86.364 03/18/2012 [facility] Encounters Location Location Details Encounter Type Encounter Number Reason For Visit Attending Provider ADM Date DC Date Status Source [facility] Inpatient [id number] OSTEOMYELITIS LEF T 2ND TOE TATE CHILDRESS 03/18/2012 03/24/2012 Active [facility] [id number] Nelson Godoy 01/14/2015 01/15/2015 [facility] [place] [id number] 04 Nelson Godoy 01/25/2015 01/26/2015 [facility] [place] [id number] Kavin Chu 03/26/2020 04/25/2020 [facility] Procedures No Data Provided for This Section Assessment and Plan No Data Provided for This Section Plan of Care No Data Provided for This Section Social History Social History Date Source Social History TypeResponse 04/25/2020 [facility] No data available for this section 01/26/2015 [facility] Family History No Data Provided for This Section Advance Directives No Data Provided for This Section Functional Status No Data Provided for This Section
[2020-06-25 17:31] VITALS: BP 125/68
[2020-06-25] MEDS ORDERED: BENZONATATE 100 MG CAP PO PRN (17:45)
[2020-06-25] MEDS ORDERED: HYDRALAZINE HCL 20 MG/ML VIAL IV PRN (17:45)
[2020-06-25] MEDS ORDERED: GLIPIZIDE 5 MG TAB PO SCH (17:45)
[2020-06-25 17:48] VITALS: BP 125/68
[2020-06-25 17:56] LABS: BASOPHILS # (AUTO) 0.1 (0.0-0.1); BASOPHILS % 0.3 % (0.0-1.0); EOSINOPHILS # (AUTO) 0.2 (0.0-0.4); HEMATOCRIT 34.6 % (34.2-44.1); HEMOGLOBIN 9.7 g/dL (12.0-16.0); LYMPHOCYTES # (AUTO) 2.5 (1.0-3.2); LYMPHOCYTES % 12.1 % (18.0-39.1); MEAN CORPUSCULAR HEMOGLOBIN 20.6 pg (28-32); MEAN CORPUSCULAR VOLUME 73.5 fL (81-99); MONOCYTES # (AUTO) 1.5 (0.2-0.8); NEUTROPHILS # (AUTO) 16.5 (2.1-6.9); PLATELET COUNT 522 x10e3/uL (140-360); RED BLOOD COUNT 4.71 x10e6/uL (3.6-5.1); RED CELL DISTRIBUTION WIDTH 18.5 % (11.7-14.4)
[2020-06-25 18:14] LABS: ALBUMIN 3.2 g/dL (3.5-5.0); ALBUMIN/GLOBULIN RATIO 0.8 (0.8-2.0); ANION GAP 16.6 mmol/L (8-16); CREATININE, SERUM 1.16 mg/dL (0.57-1.11); POTASSIUM 3.6 mmol/L (3.5-5.1)
[2020-06-25] MEDS ORDERED: ATORVASTATIN CA10 MG PO (18:24)
[2020-06-25] MEDS ORDERED: AMILORIDE HCL-1 EACH PO (18:25)
[2020-06-25] MEDS ORDERED: ENALAPRIL MALEA20 MG PO (18:25)
--- NOTE | 2020-06-25 18:49 | Diagnostic Imaging Report ---
Examination: Single AP view of the chest. COMPARISON: Chest x-ray 07/12/2019 INDICATION: Congestive heart failure IMPRESSION: 1. Lines and Tubes: Stable left upper chest multilead cardiac device. 2. Lungs are well-inflated. Mild bilateral perihilar interstitial opacities, likely reflecting mild interstitial edema. Questionable small bilateral pleural effusions. 3. Enlarged cardiac silhouette, stable. The pulmonary venous congestion. 4. No acute bony abnormalities. Signed by: Dr. Kevin Paz M.D. on 06/25/2020 6:46 PM
--- NOTE | 2020-06-25 19:20 | NUR ---
COMPLETED BEDSIDE REPORT AND ROUNDING WITH ON COMING NIGHT NURSE. PATIENT IN STABLE CONDITION, NO S/S OF DISTRESS NOTED. NO PAIN VOICED. TELEMETRY APPLIED. IV SITE ASYMPTOMATIC AND PATENT, TRANSPARENT DRESSING C/D/I. BED IN LOWEST POSITION AND LOCKED, SIDE RAILS X 2, NON SKID SOCKS APPLIED. CALL LIGHT WITHIN REACH.
[2020-06-25 20:00] VITALS: BP 120/62
--- NOTE | 2020-06-25 20:30 | NUR ---
Pt reports discomfort in her abdomen. She states her bladder doesn't feel empty after she voids. Abdomen firm and distended. Bladder scan complete. 358 ml of post void residual noted. Dr. Prasad notified. New orders received to place Phelps catheter.
--- NOTE | 2020-06-25 20:50 | NUR ---
16 F ureteral catheter placed without any difficulties. Urine clear and yellow. Pt expresses relief of abdominal discomfort. No needs at this time. Bed locked and call light within reach. Will continue to monitor pt.
[2020-06-25 21:00] VITALS: BP 120/62
[2020-06-25] MEDS ORDERED: ZOLPIDEM TARTRATE 5 MG TAB PO PRN (21:00)
[2020-06-25] MEDS ORDERED: INSULIN GLARGINE 100 UNITS/ML VIAL SQ SCH (21:00)
[2020-06-25] MEDS ORDERED: ATORVASTATIN 10 MG TAB PO SCH (21:00)
[2020-06-25] MEDS: FUROSEMIDE INJ 10 MG/ML 4 ML VIAL IV SCH (21:56)
[2020-06-25] MEDS: SIMVASTATIN 20 MG TAB PO SCH (21:56)
[2020-06-26] VITALS (8 sets, daily range): BP systolic 118–138; BP diastolic 58–93
[2020-06-26] MEDS: FUROSEMIDE INJ 10 MG/ML 4 ML VIAL IV SCH ×3 (06:25→22:00)
--- NOTE | 2020-06-26 07:00 | NUR ---
RECEIVED BEDSIDE REPORT FROM OFF GOING NIGHT NURSE. PATIENT IN STABLE CONDITION, NO S/S OF DISTRESS NOTED. NO PAIN VOICED. TELEMETRY APPLIED. AJ APPLIED DRAINING INTO THE DRAINAGE BAG. IV SITE ASYMPTOMATIC AND PATENT, TRANSPARENT DRESSING C/D/I. BED IN LOWEST POSITION AND LOCKED, SIDE RAILS X 2, NON SKID SOCKS APPLIED. CALL LIGHT WITHIN REACH.
[2020-06-26] MEDS ORDERED: METFORMIN HCL 500 MG TAB CR PO SCH (08:00)
--- NOTE | 2020-06-26 08:03 | Diagnostic Imaging Report ---
EXAM: CT Abdomen and Pelvis WITHOUT contrast INDICATION: Congestive heart failure. COMPARISON: Abdominal CT 07/11/2019 TECHNIQUE: Abdomen and pelvis were scanned utilizing a multidetector helical scanner from the lung base to the pubic symphysis without administration of IV contrast. Absence of intravenous contrast decreases sensitivity for detection of focal lesions and vascular pathology. Coronal and sagittal reformations were obtained. Routine protocol was performed. IV CONTRAST: None ORAL CONTRAST: None COMPLICATIONS: None RADIATION DOSE: Total DLP: 76 mGy*cm Estimated effective dose: (DLP x 0.015 x size factor) mSv CTDIvol has been reviewed. It is below the limits set by the Radiation Protocol Committee (RPC). Dose modulation, iterative reconstruction, and/or weight based adjustment of the mA/kV was utilized to reduce the radiation dose to as low as reasonably achievable. FINDINGS: LINES and TUBES: Urinary bladder Phelps catheter in place, retention balloon and tip in the bladder lumen. Partially visualized cardiac device leads in the right atrium and right ventricle. LOWER THORAX: Mild cardiomegaly. Mild fibrotic changes in the lower lungs. HEPATOBILIARY: No focal hepatic lesions. No biliary ductal dilation. GALLBLADDER: There are cholecystectomy clips. SPLEEN: No splenomegaly. PANCREAS: No focal masses or ductal dilatation. ADRENALS: No adrenal nodules KIDNEYS/URETERS: No hydronephrosis. No cystic or solid mass lesions. No stones. GI TRACT: Small sliding gastric hiatal hernia. No abnormal distention, wall thickening, or evidence of bowel obstruction. There are diverticula within the colon without evidence of diverticulitis. No appendicitis. PELVIC ORGANS/BLADDER: Hysterectomy. LYMPH NODES: No lymphadenopathy. VESSELS: Arterial calcifications. Unremarkable. PERITONEUM / RETROPERITONEUM: Small volume ascites. No free air. BONES: Degenerative changes. SOFT TISSUES: Anasarca.. IMPRESSION: Volume overload with cardiomegaly, anasarca, and small volume ascites. Small sliding gastric hiatal hernia. Signed by: Troy Britton DO on 06/26/2020 7:59 AM
[2020-06-26] MEDS ORDERED: DEXTROSE 50% SYRINGE 50 ML IV PRN (08:15)
[2020-06-26] MEDS ORDERED: NON-FORMULARY MEDICATION (Insulin Detemir (Levemir) 25 UNIT) SQ SCH (09:00)
[2020-06-26] MEDS ORDERED: ENALAPRIL MALEATE 10 MG TAB PO SCH (09:00)
[2020-06-26] MEDS ORDERED: ENALAPRIL MALEATE 10 MG PO SCH (09:00)
[2020-06-26] MEDS ORDERED: SODIUM CHLORIDE 0.9% 250ML 250 ML ONE (09:18)
[2020-06-26 09:28] LABS: % IRON SATURATION 4 % (15-50); IRON 20 ug/dL (50-170); TOTAL IRON BINDING CAPACITY 493 ug/dL (261-478); TRANSFERRIN 352 mg/dL (180-382)
[2020-06-26] MEDS: ASPIRIN 81 MG CHEW TAB PO SCH (09:29)
[2020-06-26] MEDS: PIPER-TAZ 3.375 GM 50 ML IV SCH ×3 (09:29→21:00)
[2020-06-26] MEDS: POTASSIUM CHLORIDE 20 MEQ TAB CR PO SCH (09:29)
[2020-06-26] MEDS: MUPIROCIN 2% OINT 22 GM TUBE TOP SCH (10:00)
--- NOTE | 2020-06-26 10:09 | Consultation ---
DATE OF CONSULTATION: 06/26/2020 REASON FOR CONSULTATION: Ulcerations to both lower extremities with the patient being a diabetic. HISTORY OF PRESENT ILLNESS: This is a pleasant 64-year-old partially deaf female who has had nonhealing ulcerations for several years. Relates that she has not been seen by foot doctor for more than 5-6 months ago. Currently denying history of fever, chills, nausea, or vomiting. PAST MEDICAL HISTORY: Remarkable for multiple ulcerations to both lower extremities for several years, diabetes, hypertension, and heart failure. ALLERGIES: TO LATEX. SOCIAL HISTORY: No drinking, smoking, or recreational drug use. FAMILY HISTORY: Noncontributory. CURRENT MEDICATIONS: Note listed in chart including Zosyn. REVIEW OF SYSTEMS: CARDIAC: Denies any palpitations at this time. RESPIRATORY: Denies any shortness of breath or productive cough. GASTROINTESTINAL: Denies any diarrhea or constipation. PHYSICAL EXAMINATION: VITAL SIGNS: Afebrile, pulse rate 77, respirations 20, blood pressure 118/72, and O2 saturation 96%. Podiatric physical examination reveals the following: VASCULATURE: Pedal pulses of both the DP and PT are diminished to both lower extremities. Skin temperature is cool to touch. NEUROLOGICAL: Loss of protective sensation when utilizing [place] 5.07 monofilament wire. MUSCULOSKELETAL: Muscle mass to be asymmetrical, some swelling noted to both lower extremities with muscle strength to be 3 to 4/5 to all muscle groups. DERMATOLOGICAL: Multiple grade 3 ulcerations, left worse than right. Left ulcer measuring more than 6 cm in diameter. Plantar aspect of left foot has what seems to be a Charcot deformity. Also has multiple grade 2 ulcerations on plantar aspect first metatarsophalangeal joint, 3rd metatarsophalangeal joint of the right foot, possibly down the subcutaneous tissue. LABORATORY DATA: Noted as a white blood cell count of 20.86, hemoglobin 9.7 with a platelet count of 522. ASSESSMENT: 1. Peripheral arterial disease. 2. Diabetic neuropathy. 3. Possible osteomyelitis with cellulitis. PLAN: We will start Bactroban ointment to bilateral foot ulcerations. X-rays of both feet three views were ordered. Continue offloading as best as possible, continue Zosyn IV piggyback. We will continue to follow. BROOKLYN Gambino/SAMUELL /[id number]
--- NOTE | 2020-06-26 10:49 | Consultation ---
DATE OF CONSULTATION: Cardiology Consult HISTORY OF PRESENT ILLNESS: She is a 64-year-old female with primary history of hypertension, diabetes, sick sinus syndrome, PPM in 2018, diastolic heart failure, admitted complaining of worsening shortness of breath, swelling in the abdominal area and lower extremities, accompanied with nausea and vomiting. The patient reports increased work of breathing, moving around her house. The patient denies any palpitations or chest pain or dizziness/syncope. PAST MEDICAL HISTORY: Primary history of hypertension, diabetes, sick sinus syndrome, diastolic heart failure, dyslipidemia, and CKD. PAST SURGICAL HISTORY: Hernia repair, hysterectomy, cholecystectomy, and multiple foot surgery. SOCIAL HISTORY: The patient lives with her . Nonsmoker. No alcohol use. ALLERGIES: LATEX AND IODINE. HOME MEDICATIONS: Levemir insulin, atorvastatin, glipizide 10 mg one tablet twice a day, metformin 500 mg one tablet 3 times a day, hydrochlorothiazide/enalapril 10 mg one tablet daily, and aspirin 81 mg tablet daily. PHYSICAL EXAMINATION: CURRENT VITAL SIGNS: 97.8 temperature, pulse of 77, blood pressure is 118/72, respirations 20, and SpO2 of 96%. GENERAL: The patient is well developed and well nourished. No acute respiratory distress. SKIN: Normal in appearance, texture, and temperature. Warm and dry. Left foot, there is a chronic diabetic wound ulcer. HEENT: The patient's cranium is normocephalic and atraumatic. Pupils are equally round and reactive to light and accommodation. Sclerae nonicteric. Ears are normal. Mucosa is moist. Throat is clear. NECK: Supple. Full range of motion. No cervical lymphadenopathy. No thyromegaly. Carotid artery upstroke is normal bilaterally without bruits. JVP is 8 cm with the patient at 45 degrees. RESPIRATORY: Normal respiratory effort. Lungs diminished bilaterally. Diminished breath sounds all throughout lung bray. No crackles. CARDIOVASCULAR: S1 and S2 audible. Regular rate and rhythm. No significant murmurs heard on auscultation. GI: Soft. Bowel sounds are present. Tender and distended. EXTREMITIES: No cyanosis. +2 to 3 edema. Pulses are weak bilaterally. There is a chronic left foot ulcer. NEUROLOGIC: Motor and sensory examination of the upper and lower extremities normal. Reflexes are normal and symmetrical bilaterally. IMAGING: Chest x-ray shows pulmonary venous congestion. LABORATORY DATA: Sodium is 137, potassium is 3.6, chloride 94, carbon dioxide 30, anion gap 16.6, BUN is 18, creatinine is 1.16, GFR is 47, BUN and creatinine ratio is 16, glucose 54, repeat is 149. BNP is 1128.2. AST 37, ALT 14, and ALK 140. Albumin 3.2, total protein 7.2, and globulin 4.0. WBC 20.86, hemoglobin is 9.7, and hematocrit 34.6. IMPRESSION AND PLAN: The patient is a 64-year-old female admitted with dyspnea and diastolic heart failure with bilateral lower extremity edema. The patient's pacemaker was interrogated at the Cardiology Clinic and is functioning normally. 1. Monitor hemodynamics and continue telemetry monitoring. 2. Diurese with IV Lasix and monitor intake and output and electrolytes, and replace electrolytes as needed. 3. Obtain echocardiogram to evaluate valves and LV function. Place Phelps catheter for accurate intake and output measuring. Fluid and sodium restriction. Congestive heart failure education. 4. Obtain lipid panel. Cardiac diet. Trend BNP. 5. We will also check abdominal CT to evaluate ascites. 6. Further recommendation will follow according to the patient's clinical course. We will continue to evaluate for any further need of any cardiac intervention. Thank you for this consultation. Dictated by Penelope Wynne NP MD BHAVIN Maurice/JOSS /[id number]
[2020-06-26] MEDS: INSULIN LISPRO 100 UNIT/1 ML 3ML VIAL SQ SCH ×3 (11:30→21:00)
--- NOTE | 2020-06-26 11:34 | History and Physical ---
PRIMARY CARE PHYSICIAN: Adams Douglas MD. MOTOR VEHICLE LICENSE CLERK: Abad Ayon MD. CHIEF COMPLAINT: Congestive heart failure exacerbation, increasing shortness of breath. HISTORY OF PRESENT ILLNESS: This is a 64-year-old female with multiple chronic medical problem. The patient was admitted because of increasing fluid retention of both lower extremity abdominal wall. The patient was directly admitted by Dr. Abad Ayon. The patient has increase in the fluid overload. She has been getting IV furosemide. A Phelps catheter placed for assist with patient's urination. The patient does have bilateral chronic foot growth, worse on the left foot compared to the right. When she was admitted, her WBC was 20.8 thousand. She did not have any fever. The patient is otherwise stable, however, except for increasing shortness of breath. Further workup is pending at this time. PAST MEDICAL HISTORY: Systolic dysfunction, congestive heart failure due to pulmonary hypertension, morbidly obese, chronic kidney disease, dyslipidemia, diabetes type 2, hypertension. Chronic foot infection with growth bilaterally worse on the left compared to the right. Permanent pacemaker left chest area. Progressive medical debility. 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 Hernia repair, hysterectomy. SOCIAL HISTORY: The patient lives at home with her family. She does not smoke or use alcohol. No regular drug. ALLERGIES: LATEX. HOME MEDICATIONS: The patient on: 1. Amiloride HCTZ. 2. Aspirin. 3. Lipitor. 4. Enalapril. 5. Glipizide. 6. Insulin Levemir. 7. Metformin. PHYSICAL EXAMINATION: VITAL SIGNS: Temperature is 97, blood pressure 118/72, pulse rate 77, respirations 18. GENERAL: The patient is not in acute distress. She is awake. She is very hard of hearing. HEENT: Normocephalic and atraumatic. Anicteric. NECK: Supple grossly. PULMONARY: Diminished breath sounds at bases with rales. CARDIOVASCULAR: Left permanent pacemaker. ABDOMEN: Anasarca with fluid, abdominal consistent with ascites. EXTREMITIES: Bilateral edema. Left foot, there is callus growth severely with surrounding redness. Right foot, there is callus, dried, noninfected. NEUROLOGIC: No gross focal deficit. Moving all extremities, but very hard of hearing. LABORATORY DATA: WBC 21, hemoglobin 9.7, hematocrit 35, platelets 522. Chemistry; sodium 137, potassium 3.6, chloride 94, bicarb 30, BUN is 18, creatinine 1.2, glucose is 149. BNP is 1128. AST 37, ALT 14. Abdomen and pelvis CT scan show volume overload with cardiomegaly, anasarca and small volumes of ascites. Small gastric hiatal hernia. IMPRESSION: 1. [id number] congestive heart failure. Echocardiogram pending. 2. Bilateral lower extremity foot callus, worse on the left compared to the right, may be infectious. 3. Multiple chronic baseline problem as mentioned above. 4. Diabetes type 2. 5. Hypertension. 6. Dyslipidemia. 7. Left permanent pacemaker. 8. Very hard of hearing. 9. Morbidly obese. 10. Anasarca abdomen. PLAN: Continue with diuresis. Start the patient on antibiotics. We will consult Dr. Montrell Mason, patient's checker in. Continue with home medication. Withholding LY inhibitor, metformin, and glipizide for now due to episodic low blood sugar. Place the patient on insulin sliding scale coverage. Obtain lab work. We will follow up with this patient on a close basis. Check echocardiogram. MD JARED Chambers/MODL /[id number]
--- NOTE | 2020-06-26 13:55 | Diagnostic Imaging Report ---
X-ray, 3 views of the bilateral feet INDICATION: ^[id number] ^1000 ^ULCERS ON BILATERAL FEET Comparison: CT dated 07/13/2019. Discussion: Left: Stable post surgical changes from partial amputation of the level of the middle phalanx of the second toe. Superficial bandaging overlying the medial tarsal bones is noted limiting evaluation. Chronic subluxation of the navicular bone with areas of cortical erosion and sclerosis are noted similar to prior CT. Moderate hallux valgus deformity is noted. Pes planus is noted with collapse of the midfoot. Os trigonum is noted. Prominent plantar calcaneal spur is noted. Chronic deformity of the distal fibula is noted. Negative for cortical erosion or periosteal reaction. Negative for subcutaneous emphysema. Right: Severe hallux valgus deformity/chronic dislocation of the first metatarsophalangeal joint is noted. Hammertoe deformities are noted. Metallic plate and screw fixation of the distal fibula is noted. Negative for pes planus. Small plantar calcaneal spur is noted. Negative for acute displaced fracture or dislocation. Negative for tibiotalar joint effusion. Negative for cortical erosion or periosteal reaction. Negative for subcutaneous emphysema. IMPRESSION: 1. Limited radiographic evaluation of the feet is negative for evidence of acute osteomyelitis. Consider follow-up double phase bone scan versus noncontrast MRI for further evaluation. 2. 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 Stable post surgical changes from left second toe partial amputation. A component of acute osteomyelitis of this specific bone is difficult to exclude. 3. Severe hallux valgus deformity of the right first toe with probable chronic dislocation of the first metatarsophalangeal joint. Signed by: Sabas Godoy MD on 06/26/2020 1:51 PM
--- NOTE | 2020-06-26 14:02 | NUR ---
WOUND CARE CONSULT FOR 64 YO FEMALE HX OF ZULEIMA 19 0N CONSERVATIVE PUP STATUS AND INTERVENTIONS AND VISCO MATTRESS LABS: WBC-20.86 HGB- 9.7 GLUCOSE- 54 SKIN ASSESSMENT COMPLETE PATIENT PRESENTS WITH RAISED LESIONS BILATERAL FEET ASSESSMENT AND MEASUREMENT LISTED ON WOUND ASSESSMENT FORM RECOMMENDATIONS: NURSING TO CONTINUE TO MAINTAIN CONSERVATIVE PUP STATUS AND INTERVENTIONS AND VISCO MATTRESS NURSING TO CONTINUE TO ASSIST PATIENT OUT OF BED FOR MEALS AND MUCH TOLERATED NURSING TO CONTINUE TO ASSIST PATIENT NEEDED WITH MEALS AND NUTRITIONAL SUPPLEMENTS TO ENSURE PROPER REQUIREMENTS FOR HEALING NURSING TO CONTINUE TO OFFLOAD FEET AND HEELS NEEDED WITH PILLOW SUSPENSION WHEN IN BED NURSING TO CLEAN RAISED LESIONS BILATERAL FEET WITH NORMAL SALINE DAILY AND APPLY XEROFORM CHUY AND 4X4 DRESSING SECURE WITH LIGHT KERLIX WRAP Addendum: 06/26/20 at 1411 by Robert Salcido RN Amended: Links added.
[2020-06-26] MEDS: INSULIN GLARGINE 100 UNITS/ML VIAL SQ SCH (16:38)
[2020-06-26] MEDS: ACETAMINOPHEN/CODEINE 300MG - 30MG TAB PO PRN (17:18)
--- NOTE | 2020-06-26 18:54 | NUR ---
Nutrition Screen Note RD Recommendation for Physician: - Add 1800 ADA to current diet Plan of Care: RD following, monitoring for tolerance and adequacy Nutrition reason for involvement: DX: CHF, MST2 Primary Diagnose(s): CHF PMH: CHF, pulmonary HTN, morbid obesity, CKD, dyslipidemia, DM2, HTN, pacemaker Ht: 64 in Wt: no wt available, 175 lb Jul 2019 BMI: not available IBW: [address] Assessment: 06/26: 64 YOF admitted for CHF exacerbation bilateral lower extremity fluid overload. Pt evaluated today per admit dx. Called pt room x 2, no answer. Pt eating 75% of meals since admit. No GI distress reported. No wt loss reported on admit, noted pt weighing 175# a year ago per prior admit Jul 2019. Chart reviewed. Pt with bilateral leg wounds due to current condition, no pressure ulcers. Labs and meds reviewed. Will continue to monitor. Current Diet: Cardiac Malnutrition Evaluation (06/26/20) The patient does not meet criteria for a specified degree of malnutrition at this time, unable to evaluate. Will re-evaluate at follow-up as appropriate. Diet Education Needs Assessment: Diet education indicated, pt not available at this time. Diet tolerance: tolerating po Nutrition Care Level: low Signed: Sonam Bower RD, LD, [facility]
--- NOTE | 2020-06-26 19:35 | NUR ---
COMPLETED BEDSIDE REPORT AND ROUNDING WITH ON COMING NIGHT NURSE. PATIENT IN STABLE CONDITION, NO S/S OF DISTRESS NOTED. NO PAIN VOICED. TELEMETRY APPLIED. AJ APPLIED AND PATENT DRAINING CLEAR PALE URINE. IV SITE ASYMPTOMATIC AND PATENT, TRANSPARENT DRESSING C/D/I. BED IN LOWEST POSITION AND LOCKED, SIDE RAILS X 2, NON SKID SOCKS APPLIED. CALL LIGHT WITHIN REACH.
[2020-06-26] MEDS: SIMVASTATIN 20 MG TAB PO SCH (21:00)
[2020-06-27] VITALS (8 sets, daily range): BP systolic 106–132; BP diastolic 53–73
[2020-06-27] MEDS: PIPER-TAZ 3.375 GM 50 ML IV SCH ×4 (03:30→21:00)
[2020-06-27 05:49] LABS: BASOPHILS # (AUTO) 0.1 (0.0-0.1); BASOPHILS % 0.5 % (0.0-1.0); EOSINOPHILS # (AUTO) 0.5 (0.0-0.4); HEMATOCRIT 33.6 % (34.2-44.1); HEMOGLOBIN 9.3 g/dL (12.0-16.0); LYMPHOCYTES # (AUTO) 2.9 (1.0-3.2); LYMPHOCYTES % 23.6 % (18.0-39.1); MEAN CORPUSCULAR HEMOGLOBIN 19.7 pg (28-32); MEAN CORPUSCULAR HGB CONC 27.7 g/dL (31-35); MEAN CORPUSCULAR VOLUME 71.3 fL (81-99); MONOCYTES # (AUTO) 1.1 (0.2-0.8); MONOCYTES % 8.8 % (4.4-11.3); NEUTROPHILS # (AUTO) 7.8 (2.1-6.9); NEUTROPHILS % 62.6 % (38.7-80.0); PLATELET COUNT 517 x10e3/uL (140-360); RED BLOOD COUNT 4.71 x10e6/uL (3.6-5.1); RED CELL DISTRIBUTION WIDTH 18.6 % (11.7-14.4)
[2020-06-27] MEDS: FUROSEMIDE INJ 10 MG/ML 4 ML VIAL IV SCH ×3 (06:00→22:00)
[2020-06-27 06:07] LABS: CHOL/HDL RATIO 3.3 (3.0-3.6)
[2020-06-27 06:22] LABS: THYROID STIMULATING HORMONE 3.499 uIU/mL (0.350-4.940)
[2020-06-27 06:31] LABS: CREATININE, SERUM 1.08 mg/dL (0.57-1.11)
[2020-06-27] MEDS: INSULIN LISPRO 100 UNIT/1 ML 3ML VIAL SQ SCH ×4 (07:30→21:00)
[2020-06-27 07:44] LABS: ANISOCYTOSIS MODERATE; ELLIPTOCYTE, RBC SLIGHT; HYPOCHROMASIA SLIGHT
[2020-06-27 07:45] LABS: MICROCYTOSIS SLIGHT; OVALOCYTES FEW; TEAR DROP CELLS FEW
[2020-06-27 07:47] LABS: BURR CELLS F; PLATELET ESTIMATE SLIGHTLY INCREASED; RBC MORPHOLOGY COMMENT ABNORMAL
[2020-06-27 07:48] LABS: PLATELET MORPHOLOGY COMMENT FEW EDTA CLUMPING
[2020-06-27 07:49] LABS: GIANT PLATELETS RARE; LARGE PLATELETS FEW
--- NOTE | 2020-06-27 09:01 | Consultation ---
DATE OF CONSULTATION: 06/27/2020 SUBJECTIVE: The patient is at bedside, doing better. Denies any history of fever, chills, nausea, or vomiting. OBJECTIVE: VITAL SIGNS: Afebrile, pulse rate 73, respirations 18, blood pressure 128/69, and O2 saturation 100%. EXTREMITIES: Ulcerations to both lower extremity improving. Has a grade 3 ulcer, left and grade 2 ulcer, right with no signs of osteomyelitis on x-ray report. LABORATORY DATA: White blood cell count dropping to 12.44. ASSESSMENT: Grade 3 ulcer, left. Grade 2 ulcer, right. PLAN: Continue applying prescribed medications. Continue IV antibiotics. Continue offloading. We will continue to follow. BROOKLYN Gambino/JOSS /[id number]
--- NOTE | 2020-06-27 09:15 | NUR ---
BEDSIDE SHIFT REPORT RECEIVED FROM THE DAY SHIFT BUSINESS OFFICE TECHNOLOGY INSTRUCTOR. EDUCATED PT ABOUT FALL PRECAUTIONS. PT VERBALIZED UNDERSTANDING. CALL LIGHT WITH IN EASY REACH. BED IS LOW AND LOCKED. SIDE RAILS X2. BED ALARM IS ON. ALL SAFETY MEASURES IN PLACE. PT DENIES NEEDS AT THIS TIME.
[2020-06-27] MEDS: INSULIN GLARGINE 100 UNITS/ML VIAL SQ SCH ×2 (09:30→16:30)
--- NOTE | 2020-06-27 09:50 | NUR ---
PAGED DR. MULLER AND RECONFIRMED K DUR DOSAGE 40 MEQ DAILY
[2020-06-27] MEDS: POTASSIUM CHLORIDE 20 MEQ TAB CR PO SCH (10:00)
[2020-06-27] MEDS: ASPIRIN 81 MG CHEW TAB PO SCH (10:00)
[2020-06-27] MEDS: MUPIROCIN 2% OINT 22 GM TUBE TOP SCH (11:00)
[2020-06-27] MEDS: ACETAMINOPHEN/CODEINE 300MG - 30MG TAB PO PRN ×2 (15:50→23:30)
--- NOTE | 2020-06-27 17:26 | NUR ---
PAGED LAB REGARDING STAT BMP AND MAGNESIUM
[2020-06-27 18:02] LABS: ANION GAP 18.4 mmol/L (8-16); CREATININE, SERUM 1.17 mg/dL (0.57-1.11); POTASSIUM 4.4 mmol/L (3.5-5.1)
--- NOTE | 2020-06-27 19:00 | NUR ---
BEDSIDE SHIFT REPORT GIVEN TO THE CLASSIFICATION AND TREATMENT DIRECTOR RN. PT DENIED FURTHER NEEDS.
--- NOTE | 2020-06-27 19:05 | NUR ---
Received shift report from morning nurse. Pt alert and oriented, lying in bed HOB 45 degrees, denies pain at this time. Call light within reach.
[2020-06-27] MEDS: SIMVASTATIN 20 MG TAB PO SCH (21:00)
[2020-06-28] VITALS (8 sets, daily range): BP systolic 116–138; BP diastolic 63–82
[2020-06-28] MEDS: PIPER-TAZ 3.375 GM 50 ML IV SCH ×5 (03:00→21:54)
[2020-06-28] MEDS: FUROSEMIDE INJ 10 MG/ML 4 ML VIAL IV SCH ×3 (05:44→21:54)
--- NOTE | 2020-06-28 07:00 | NUR ---
BEDSIDE SHIFT REPORT RECEIVED FROM THE HEALTH CLUB MANAGER RN. EDUCATED PT ABOUT FALL PRECAUTIONS. PT VERBALIZED UNDERSTANDING. CALL LIGHT WITH IN EASY REACH. BED IS LOW AND LOCKED. SIDE RAILS X2. BED ALARM IS ON. ALL SAFETY MEASURES IN PLACE. PT DENIES NEEDS AT THIS TIME.
[2020-06-28] MEDS: INSULIN GLARGINE 100 UNITS/ML VIAL SQ SCH ×2 (08:30→16:44)
[2020-06-28] MEDS: INSULIN LISPRO 100 UNIT/1 ML 3ML VIAL SQ SCH ×4 (08:30→21:57)
--- NOTE | 2020-06-28 08:30 | NUR ---
DR. ANSARI AT BEDSIDE. I&D RIGHT FOOT TOMORROW PER THE
[2020-06-28] MEDS: MUPIROCIN 2% OINT 22 GM TUBE TOP SCH (08:46)
--- NOTE | 2020-06-28 08:58 | Progress Note ---
DATE: 06/28/2020 SUBJECTIVE: The patient is seen at bedside. No distress. OBJECTIVE: VITAL SIGNS: Afebrile, pulse rate 83, respirations 20, blood pressure 138/70, and O2 saturation 100%. EXTREMITIES: Ulcerations to both lower extremity getting somewhat better. Granulation tissue noted down to muscle left lower extremity, down the subcutaneous tissue right foot. Pedal pulses diminished. LABORATORY DATA: Show white blood cell count of 12.4, dropping from 20.86. Has a blood glucose of 212. ASSESSMENT: Peripheral arterial disease, grade 3 ulcer left, grade 2 ulcer right with periwound cellulitis. PLAN: Continue local wound care. Continue offloading. Continue IV antibiotics. We will continue to follow. BROOKLYN Gambino/JOSS /[id number]
[2020-06-28] MEDS: ASPIRIN 81 MG CHEW TAB PO SCH (09:48)
[2020-06-28] MEDS: POTASSIUM CHLORIDE 20 MEQ TAB CR PO SCH (09:59)
--- NOTE | 2020-06-28 11:50 | NUR ---
STOOL OCCULT BLOOD PENDING. PT HAS NO BM YET. INFORMED DR. MULLER REGARDING NO BM.
[2020-06-28] MEDS ORDERED: MAGNESIUM HYDROXIDE 30 ML UDC PO PRN (12:45)
[2020-06-28] MEDS ORDERED: BISACODYL 10 MG SUPP PR PRN (12:45)
[2020-06-28] MEDS: SENNA-S TABLET PO SCH ×2 (13:00→16:00)
[2020-06-28] MEDS ORDERED: MAGNESIUM HYDROXIDE 30 ML UDC PO ONE (13:05)
[2020-06-28] MEDS ORDERED: BISACODYL 10 MG SUPP PR ONE (13:05)
[2020-06-28] MEDS: ACETAMINOPHEN/CODEINE 300MG - 30MG TAB PO PRN (15:43)
--- NOTE | 2020-06-28 16:33 | NUR ---
PT HAD SMALL BOWEL MOVEMENT . SOFT FORMED STOOL NOTED. ASSISTED PT TO THE TOILET AND BACK TO BED SAFELY. PT DENIES NEEDS AT THIS TIME. PT IS RESTING ON BED. NO DISTRESS NOTED. .
--- NOTE | 2020-06-28 16:34 | NUR ---
UNABLE TO COLLECT STOOL SAMPLE DUE TO PT FLUSHED TOILET ACCIDENTALLY.
--- NOTE | 2020-06-28 16:45 | NUR ---
DISCONTINUED AJ PER THE ORDER FROM DR. MULLER. TIP INTACT. NO DISTRESS NOTED. PT DENIED FURTHER NEEDS
--- NOTE | 2020-06-28 18:30 | NUR ---
PT VOIDED TWICE IN THE TOILET. PT DENIES NEEDS AT THIS TIME.
--- NOTE | 2020-06-28 19:08 | NUR ---
BEDSIDE SHIFT REPORT GIVEN TO THE SOLID WASTE MANAGER RN. PT DENIED FURTHER NEEDS.
[2020-06-28] MEDS: SIMVASTATIN 20 MG TAB PO SCH (21:54)
[2020-06-29] VITALS (8 sets, daily range): BP systolic 99–125; BP diastolic 57–80
[2020-06-29] MEDS: PIPER-TAZ 3.375 GM 50 ML IV SCH ×4 (03:40→21:02)
[2020-06-29] MEDS: FUROSEMIDE INJ 10 MG/ML 4 ML VIAL IV SCH ×3 (06:39→21:02)
[2020-06-29] MEDS: INSULIN LISPRO 100 UNIT/1 ML 3ML VIAL SQ SCH ×4 (07:30→21:03)
[2020-06-29] MEDS: INSULIN GLARGINE 100 UNITS/ML VIAL SQ SCH ×2 (08:00→17:17)
[2020-06-29] MEDS: SENNA-S TABLET PO SCH ×2 (08:55→18:00)
[2020-06-29] MEDS: ASPIRIN 81 MG CHEW TAB PO SCH (08:55)
[2020-06-29] MEDS: POTASSIUM CHLORIDE 20 MEQ TAB CR PO SCH (09:05)
[2020-06-29] MEDS: MUPIROCIN 2% OINT 22 GM TUBE TOP SCH (09:57)
[2020-06-29 12:17] LABS: BASOPHILS # (AUTO) 0.1 (0.0-0.1); BASOPHILS % 0.4 % (0.0-1.0); EOSINOPHILS # (AUTO) 0.4 (0.0-0.4); EOSINOPHILS % 3.1 % (0.0-6.0); HEMATOCRIT 34.8 % (34.2-44.1); HEMOGLOBIN 9.7 g/dL (12.0-16.0); LYMPHOCYTES # (AUTO) 2.3 (1.0-3.2); LYMPHOCYTES % 17.5 % (18.0-39.1); MEAN CORPUSCULAR HEMOGLOBIN 20.3 pg (28-32); MEAN CORPUSCULAR HGB CONC 27.9 g/dL (31-35); MEAN CORPUSCULAR VOLUME 72.7 fL (81-99); MONOCYTES % 7.7 % (4.4-11.3); NEUTROPHILS # (AUTO) 9.5 (2.1-6.9); NEUTROPHILS % 70.7 % (38.7-80.0); PLATELET COUNT 538 x10e3/uL (140-360); RED BLOOD COUNT 4.79 x10e6/uL (3.6-5.1); RED CELL DISTRIBUTION WIDTH 18.5 % (11.7-14.4)
[2020-06-29 12:34] LABS: ANION GAP 18.8 mmol/L (8-16); CALCIUM 8.6 mg/dL (8.4-10.2); CREATININE, SERUM 1.18 mg/dL (0.57-1.11); POTASSIUM 3.8 mmol/L (3.5-5.1)
--- NOTE | 2020-06-29 14:18 | NUR ---
PT DEAF, ATTEMPTED TO REACH VERO-[id number] BUT COULD NOT REACH HIM, UNABLE TO DPA AT PRESENT
--- NOTE | 2020-06-29 15:45 | NUR ---
dr garcia at bedside to change ptdrsg to right foot
[2020-06-29] MEDS: ACETAMINOPHEN/CODEINE 300MG - 30MG TAB PO PRN ×2 (17:05→23:19)
[2020-06-29] MEDS: SIMVASTATIN 20 MG TAB PO SCH (21:02)
--- NOTE | 2020-06-29 23:19 | Consultation ---
DATE OF CONSULTATION: 06/29/2020 SUBJECTIVE: The patient at bedside. Denying any history of fever, chills, nausea, or vomiting. OBJECTIVE: VITAL SIGNS: Afebrile. Pulse rate 85, respirations 20, blood pressure 119/59, O2 saturation 100%. LABORATORY DATA: Noted has a white blood cell count going up to 13.39, hemoglobin 9.7 with a platelet count of 538,000. Blood glucose of 215. Ulcerations to both lower extremities healing slowly as a grade 3 ulcer tracking down to bone left lower extremity measuring more than 5-6 cm in diameter, some muscle exposed with some drainage with minimal foul smell. Periwound cellulitis present. Ulcerations to the right lower extremity and down to subcutaneous tissue x2, one down the dermis and the other one down the subcutaneous tissue both measuring 1.5 to 2 cm in diameter. Pedal pulses are palpable, but diminished. ASSESSMENT: Diabetic neuropathy, grade 3/4 ulceration left foot with a grade 1 and grade 2 ulceration right. PLAN: Under no anesthesia secondary to her neuropathy sharp excisional debridement of all ulcerations were performed via the use of a sterile 10 blade. Sharp excisional debridement was carried down to muscle very close to bone to the left lower extremity, devitalized tissue sharply excised until good viable bleeding tissue was achieved. Necrotic tissue removed. Ulcerations to the right lower extremities x2 were also debrided down the dermis and subcutaneous tissue devitalized tissue sharply excised via the use of a sterile 10 blade. Sharp excisional debridement was performed. Sterile dressing was applied. We will continue IV antibiotics such as Zosyn, continue Bactroban ointment followed by diluted wet-to-dry Betadine to both lower extremities. We will continue to monitor and treat conservatively for now to try to salvage foot and leg. BROOKLYN Gambino/JOSS /[id number]
[2020-06-30] VITALS (7 sets, daily range): BP systolic 90–126; BP diastolic 40–74
[2020-06-30] MEDS: PIPER-TAZ 3.375 GM 50 ML IV SCH ×4 (03:27→22:49)
[2020-06-30] MEDS: FUROSEMIDE INJ 10 MG/ML 4 ML VIAL IV SCH (05:57)
--- NOTE | 2020-06-30 06:45 | NUR ---
SBAR BEDSIDE REPORT RECEIVED FROM SHERINE BUCKLEY. PT [place] BUT IS ABLE TO MAKE NEEDS KNOWN. PT WAS RECEIVED LAYING IN BED IN NO ACUTE DISTRESS. PT WAS EDUCATED ON FALL RISK PRECAUTIONS. PT VERBALIZED UNDERSTANDING. CALL LIGHT AND BELONGINGS PLACED NEARBY. WILL CONTINUE TO MONITOR.
--- NOTE | 2020-06-30 07:15 | NUR ---
REPORT GIVEN TO DAYSHIFT NURSE. ALERT AND RESTING IN BED. NO SIGNS IV INFILTRATION. BED LOCKED AND IN LOW POSITION. CALL LIGHT WITHIN REACH. BED ALARM ACTIVATED.
[2020-06-30] MEDS: INSULIN LISPRO 100 UNIT/1 ML 3ML VIAL SQ SCH ×4 (07:30→22:50)
[2020-06-30] MEDS: INSULIN GLARGINE 100 UNITS/ML VIAL SQ SCH ×3 (07:30→18:00)
[2020-06-30 08:20] LABS: ANION GAP 14.6 mmol/L (8-16); CALCIUM 8.4 mg/dL (8.4-10.2); CREATININE, SERUM 1.25 mg/dL (0.57-1.11); POTASSIUM 3.6 mmol/L (3.5-5.1)
[2020-06-30] MEDS: MUPIROCIN 2% OINT 22 GM TUBE TOP SCH (08:20)
[2020-06-30] MEDS: SENNA-S TABLET PO SCH ×2 (08:20→16:59)
[2020-06-30] MEDS: ASPIRIN 81 MG CHEW TAB PO SCH (08:20)
[2020-06-30] MEDS: POTASSIUM CHLORIDE 20 MEQ TAB CR PO SCH (08:25)
--- NOTE | 2020-06-30 13:27 | Discharge Summary ---
PRIMARY CARE PHYSICIAN: Adams Douglas MD. CONSULTANTS: 1. Aabd Ayon MD. 2. Montrell Mason DPM. FINAL DIAGNOSES: 1. Bilateral foot cellulitis with left foot more than in the right foot. The patient is status post debridement. 2. Resolving leukocytosis, most likely infection from the above. 3. [id number] systolic dysfunction, congestive heart failure exacerbation with ejection fraction of 35%. 4. Very hard of hearing at baseline. 5. Chronic kidney disease associated with multiple chronic medical problems. SUMMARY: The patient is a 64-year-old female with congestive heart failure. The patient came to the hospital for evaluation. Her venous Doppler lower extremity was negative for blood clot. The ejection fraction on echocardiogram show 35%. The patient has been getting diuresis. She is doing much better. The patient is otherwise stable. The patient is also with leukocytosis 22,000 and that has gone down to 13,000 after antibiotics and foot debridement. The patient is very hard of hearing, but overall she is stable. No shortness of breath. No chest pain. She is able to urinate. The Phelps catheter was placed previously due to aggressive diuresis due to the heart failure. The patient is stable. She will be discharged home today. Adjustment of her medication is made. She will stop the enalapril, metformin, and amiloride-HCTZ. She was started on Lasix 40 mg 3 times a day, potassium 40 mEq b.i.d., Tessalon Perles p.r.n. q.6 as needed for cough, Augmentin 875 mg b.i.d. with food for 10 days, and losartan 50 mg daily. The patient is otherwise stable, discharged home. Follow up with Dr. Abad Ayon and Dr. Montrell Mason within a week and follow up with Dr. Adams Douglas, her primary care physician within 1 to 2 weeks. Activity as tolerated. Wound care followup and continue. The patient will have 2 g sodium diet. Fall precaution. Wound care. MD JARED Chambers/MODL /[id number]
--- NOTE | 2020-06-30 15:00 | NUR ---
CALL PLACED TO DR. ANSARI TO MAKE AWARE OF D/C ORDER BY ADMITTING PHYSICIAN AND FOLLOW UP ON WOUND CARE ORDERS PATIENT HAD AN I/D OF BILATERAL FEET YESTERDAY. LEFT MESSAGE WITH ANSWERING SERVICE. AWAITING RETURN CALL.
--- NOTE | 2020-06-30 19:23 | NUR ---
Pt has orders to discharge home. Spoke with Dr. Mason via phone to get discharge wound care orders. Dr. Mason would like for the patient to be discharged in the AM after he assess her left foot surgical site. Dr. Prasad, attending physician, paged. Awaiting call back.
--- NOTE | 2020-06-30 20:49 | NUR ---
Spoke to Dr. Prasad via phone. Ok to discharge pt in AM after Dr. Mason assesses patient's left foot.
[2020-06-30] MEDS: SIMVASTATIN 20 MG TAB PO SCH (22:49)
[2020-07-01 00:18] VITALS: BP 122/66
[2020-07-01] MEDS: PIPER-TAZ 3.375 GM 50 ML IV SCH ×2 (03:41→08:55)
[2020-07-01 06:02] VITALS: BP 122/74
--- NOTE | 2020-07-01 06:53 | NUR ---
BEDSIDE SBAR REPORT GIVEN BY SHERRON BUCKLEY, PM SHIFT NURSE. PT FOUND RESTING IN BED IN NO ACUTE DISTRESS. [place] BUT IS ABLE TO MAKE NEEDS KNOWN. PT WAS EDUCATED ON FALL RISK PRECAUTIONS. PT VERBALIZED UNDERSTANDING. WILL CONTINUE TO MONITOR.
[2020-07-01] MEDS: INSULIN LISPRO 100 UNIT/1 ML 3ML VIAL SQ SCH ×2 (07:30→12:18)
[2020-07-01 08:14] VITALS: BP 128/72
[2020-07-01] MEDS: SENNA-S TABLET PO SCH (08:55)
[2020-07-01] MEDS: INSULIN GLARGINE 100 UNITS/ML VIAL SQ SCH (08:55)
[2020-07-01] MEDS: MUPIROCIN 2% OINT 22 GM TUBE TOP SCH (08:55)
[2020-07-01] MEDS: ASPIRIN 81 MG CHEW TAB PO SCH (08:55)
[2020-07-01] MEDS: POTASSIUM CHLORIDE 20 MEQ TAB CR PO SCH (08:56)
[2020-07-01 09:00] VITALS: BP 128/72
--- NOTE | 2020-07-01 09:04 | NUR ---
CALL TO PT'S ROOM FOR IMM. PT [place]. BEDSIDE NURSE WAS PRESENT TO ASSIST W CALL. IMM LETTER EXPLAINED TO PT. PT VERBALIZED UNDERSTANDING. IMM LETTER SIGNED. COPY TO PT AND COPY TO CHART.
--- NOTE | 2020-07-01 09:32 | Progress Note ---
DATE: 07/01/2020 SUBJECTIVE: The patient is seen at bedside, doing very well from debridement performed to both lower extremities yesterday. Denies any history of fever, chills, nausea, or vomiting. OBJECTIVE: VITAL SIGNS: Afebrile, pulse rate 89, respirations 20, blood pressure 126/71, and O2 saturation 100%. EXTREMITIES: Ulcerations to both lower extremity improving. Decreased drainage to the left lower extremity. Negative foul smell. Still some swelling and pain upon palpation. Pedal pulses diminished. ASSESSMENT: Grade 3 ulcer, left grade 2 ulcer and grade 1 ulcer, right foot, healing slowly. PLAN: Continue local wound care. Continue offloading. Continue Zosyn. We will continue to follow. If doing okay tomorrow, she can go home. BROOKLYN Gambino/JOSS /[id number]
--- NOTE | 2020-07-01 09:37 | Progress Note ---
DATE: 07/01/2020 SUBJECTIVE: The patient is seen at bedside, doing better. Denies any history of fever, chills, nausea, or vomiting. OBJECTIVE: VITAL SIGNS: Afebrile, pulse rate 78, respirations 16, blood pressure 128/72, and O2 saturation 100%. EXTREMITIES: Decreased drainage to the left lower extremity. Negative foul smell. Ulcerations healing slowly, more than 5 to 6 cm in diameter, plantar aspect left foot down to muscle, tracking to bone. Charcot foot deformity with a grade 1 and grade 2 ulceration right foot healing nicely. Pedal pulses diminished. LABORATORY DATA: Showing a white blood cell count of 13.39. ASSESSMENT: Peripheral arterial disease, diabetic neuropathy, possible osteomyelitis left foot with a grade 3/4 ulcer left, grade 1 and 2 ulceration right. PLAN: Okay to be discharge today. Dressing was changed. Will be put on oral antibiotics and to follow up in the office for continue local wound care to try to salvage foot and leg. BROOK[place]N Gambino/JOSS /[id number]
[2020-07-01 12:04] VITALS: BP 133/74
--- NOTE | 2020-07-01 12:49 | NUR ---
VERO ACEVES, PT'S SPOUSE, IS ON THE WAY TO MATCHER THE PATIENT.
[2020-07-01] MEDS: ACETAMINOPHEN/CODEINE 300MG - 30MG TAB PO PRN (12:57)
--- NOTE | 2020-07-01 15:20 | NUR ---
PATIENT DISCHARGED HOME VIA PRIVATE VEHICLE. PERIPHERAL IV DISCONTINUED; CATHETER INTACT WITHOUT RESISTANCE. PATIENT RECEIVED WRITTEN DISCHARGE INSTRUCTIONS, 3 FOLLOW UP APPTS WITH PCP, WOUND DOCTOR, AND PRESS MACHINE OPERATOR AND 6 WRITTEN PRESCRIPTION. PATIENT AND FAMILY VERBALIZED UNDERSTANDING.
[2020-07-02] MEDS ORDERED: METOPROLOL SUCCINATE 25 MG TAB XL PO SCH (09:00)
== END 2020-07-01 15:25 | disposition home or self-care (01) | DRG 264 ==
LOC: MED/SURG3 15:50
PROVIDERS: ADMIT Internal Medicine; ATTEND Internal Medicine
PROC: 0JBR0ZZ Excision of Left Foot Subcutaneous Tissue and Fascia, Open Approach (ICD-10-PCS; principal; 2020-06-29)
DX: I11.0 Hypertensive heart disease with heart failure (principal); I50.31 Acute diastolic (congestive) heart failure; M86.8X7 Other osteomyelitis, ankle and foot; L97.518 Non-pressure chronic ulcer of other part of right foot with other specified severity; E11.69 Type 2 diabetes mellitus with other specified complication; Z79.4 Long term (current) use of insulin; I27.20 Pulmonary hypertension, unspecified; E66.01 Morbid (severe) obesity due to excess calories; E11.42 Type 2 diabetes mellitus with diabetic polyneuropathy; E11.51 Type 2 diabetes mellitus with diabetic peripheral angiopathy without gangrene; E11.621 Type 2 diabetes mellitus with foot ulcer; L97.524 Non-pressure chronic ulcer of other part of left foot with necrosis of bone
CPT/HCPCS: 36415; 71045; 74176; 80048; 80053; 80061; 82270; 82607; 82746; 82948; 83036; 83540; 83735; 83880; 84443; 84466; 85025; 93005; 93306; 93970; J1815; J1940; J2543; J7050; U0002